=== PATIENT | female | born 1990 | race Caucasian/White ===

== ENCOUNTER 2023-01-16 16:30 | Outpatient (REF) | payer BC, SELFPAY | END 2023-01-16 16:31 | disposition home or self-care (01) | LOC: LAB 16:30 | PROVIDERS: Visit Provider Obstetrics & Gynecology | DX: L91.8 Other hypertrophic disorders of the skin (principal) | CPT/HCPCS: 88304 ==

== ENCOUNTER 2023-01-23 10:02 | Outpatient (OUT) | payer BC, SELFPAY ==
--- NOTE | 2023-01-23 10:04 | US_ITS ---
[address] [address] Patient Name: NATAN NOLEN MRN: [id number] date: 1990 Sex: F Assigned Patient Location: US Current Patient Location: Accession/Order Number: [id number] Exam Date: 01/23/2023 10:04 Report Date: 01/23/2023 21:23 At the request of: ESME CASTRO Procedure: US OB anatomy EXAMINATION: US OB anatomy HISTORY: ANATOMY COMPARISON: No relevant comparison available. TECHNIQUE: Transabdominal sonographic examination was performed for obstetrical and evaluation. FINDINGS: Number: 1 Heart Rate: 151.0 bpm H.B. /min Amniotic Fluid Volume: Subjectively normal position: Variable Placental Location: Posterior, grade 0. Placental edge 4.5 cm from the internal os Cervix Length: 5 cm , closed Normally visualized anatomy: Cerebellum, choroid plexus, cisterna magna, lateral cerebral ventricles, orbits, midline falx, hard palate, stomach, kidneys, bladder, umbilical cord insertion into the abdomen, cervical spine, thoracic spine, lumbar spine, sacral spine, right upper extremity, left upper extremity, right lower extremity, left lower extremity Suboptimally visualized anatomy: Four-chamber heart Nonvisualized: RVOT, LVOT, three-vessel cord BIOMETRY: BPD: 5.1 cm 21 weeks 3 days , 80% HC: 19.2 cm 21 weeks 3 days, 78% AC: 16.7 cm 21 weeks 5 days, 78% FL: 3.7 cm 21 weeks 4 days, 77% EFW:437.8 grams; 15 ounces, 93% FL/AC: 22.0 FL/BPD: 72.2 HC/AC: 1.2 GESTATIONAL AGE: Age by EDC: 20 weeks 4 days FARIDA by EDC: 06/08/2023 Age by current US: 21 weeks 4 days FARIDA by current US: 06/01/2023 IMPRESSION: Suboptimal visualization four-chamber heart Nonvisualization RVOT, LVOT, three-vessel cord *Reference: [employer] Practice Guideline for the performance of Obstetric Ultrasound Examinations, April 30, 2007. Electronically authenticated by: SUSAN YEAGER Date: 01/23/2023 21:23
--- NOTE | 2023-01-23 10:04 | US_ITS ---
[address] [address] Patient Name: NATAN NOLEN MRN: [id number] date: 1990 Sex: F Assigned Patient Location: US Current Patient Location: Accession/Order Number: [id number] Exam Date: 01/23/2023 10:04 Report Date: 01/23/2023 21:23 At the request of: ESME CASTRO Procedure: US OB transvaginal EXAMINATION: US OB anatomy HISTORY: ANATOMY COMPARISON: No relevant comparison available. TECHNIQUE: Transabdominal sonographic examination was performed for obstetrical and evaluation. FINDINGS: Number: 1 Heart Rate: 151.0 bpm H.B. /min Amniotic Fluid Volume: Subjectively normal position: Variable Placental Location: Posterior, grade 0. Placental edge 4.5 cm from the internal os Cervix Length: 5 cm , closed Normally visualized anatomy: Cerebellum, choroid plexus, cisterna magna, lateral cerebral ventricles, orbits, midline falx, hard palate, stomach, kidneys, bladder, umbilical cord insertion into the abdomen, cervical spine, thoracic spine, lumbar spine, sacral spine, right upper extremity, left upper extremity, right lower extremity, left lower extremity Suboptimally visualized anatomy: Four-chamber heart Nonvisualized: RVOT, LVOT, three-vessel cord BIOMETRY: BPD: 5.1 cm 21 weeks 3 days , 80% HC: 19.2 cm 21 weeks 3 days, 78% AC: 16.7 cm 21 weeks 5 days, 78% FL: 3.7 cm 21 weeks 4 days, 77% EFW:437.8 grams; 15 ounces, 93% FL/AC: 22.0 FL/BPD: 72.2 HC/AC: 1.2 GESTATIONAL AGE: Age by EDC: 20 weeks 4 days FARIDA by EDC: 06/08/2023 Age by current US: 21 weeks 4 days FARIDA by current US: 06/01/2023 IMPRESSION: Suboptimal visualization four-chamber heart Nonvisualization RVOT, LVOT, three-vessel cord *Reference: [employer] Practice Guideline for the performance of Obstetric Ultrasound Examinations, April 30, 2007. Electronically authenticated by: SUSAN YEAGER Date: 01/23/2023 21:23
[2023-01-25 20:24] LABS: AFP Value 69.5 ng/mL (.); Gest. Age on Collection Date 20.6 weeks (.); Gestat. Age Based On Ultrasound (.); Insulin Dep Diabetes No (.); Maternal Age At EDD 35.1 yr (.); OSBR Risk 1 IN 2155 (.); Results Report (.)
== END 2023-01-23 10:03 | disposition home or self-care (01) ==
LOC: US 10:03
PROVIDERS: Visit Provider Obstetrics & Gynecology
DX: Z36.89 Encounter for other specified antenatal screening (principal)
CPT/HCPCS: 36415; 76805; 76817; 82105

== ENCOUNTER 2023-02-20 10:06 | Outpatient (OUT) | payer BC, SELFPAY ==
--- NOTE | 2023-02-20 10:09 | US_ITS ---
[address] [address] Patient Name: NATAN NOLEN MRN: [id number] date: 1990 Sex: F Assigned Patient Location: US Current Patient Location: US Accession/Order Number: [id number] Exam Date: 02/20/2023 10:09 Report Date: 02/20/2023 16:17 At the request of: ESME CASTRO Procedure: US OB incomplete anatomy EXAMINATION: US OB incomplete anatomy HISTORY: INCOMPLETE ANATOMY COMPARISON: Ultrasound OB anatomy 01/23/2023 FINDINGS: Presentation: Cephalic Heart rate: 137 bpm Anatomy: Four-chamber heart, RVOT, LVOT, three-vessel cord; no appreciable abnormality. US/US OB incomplete anatomy IMPRESSION: 1. Single live intrauterine 24 weeks 4 days. 2. Adequate visualization of the above listed anatomy. No appreciable abnormality. Electronically authenticated by: BRUNILDA NIEVES Date: 02/20/2023 16:17
== END 2023-02-20 10:07 | disposition home or self-care (01) ==
LOC: US 10:06
PROVIDERS: Visit Provider Obstetrics & Gynecology
DX: Z36.2 Encounter for other antenatal screening follow-up (principal)
CPT/HCPCS: 76815

== ENCOUNTER 2023-03-09 10:50 | Outpatient (OUT) | payer BC, SELFPAY ==
[2023-03-09 12:20] LABS: Glucose 1 Hour 135 mg/dL
== END 2023-03-09 10:51 | disposition home or self-care (01) ==
LOC: LAB 10:50
PROVIDERS: Visit Provider Obstetrics & Gynecology
DX: Z34.90 Encounter for supervision of normal pregnancy, unspecified, unspecified trimester (principal)
CPT/HCPCS: 36415; 82950

== ENCOUNTER 2023-04-13 11:02 | Outpatient (OUT) | payer BC, SELFPAY ==
--- NOTE | 2023-04-13 11:04 | US_ITS ---
The [address] [address] Patient Name: NATAN NOLEN MRN: [id number] date: 1990 Sex: F Assigned Patient Location: Current Patient Location: Accession/Order Number: [id number] Exam Date: 04/13/2023 11:05 Report Date: 04/13/2023 16:03 At the request of: ESME CASTRO Procedure: US OB growth EXAMINATION: US OB growth HISTORY: SIZE INCONSISTENT WITH DATES COMPARISON: No relevant comparison available. FINDINGS: Heart Rate: 163.0 bpm Number: 1.0 Position: CEPHALIC Amniotic Fluid Volume: 12.2 cm Maximum Vertical Pocket: 4.2 cm BIOMETRY: BPD: 8.2 cm cm; 32 weeks 5 days; 64% HC: 29.9 cmcm; 33 weeks 1 days; 43% AC: 30.3 cm cm; 34 weeks 2 days; 96% FL: 6.7 cm cm; 34 weeks 4 days; 93% EFW: 2337.6 grams; 94% FL/AC: 22.2 FL/BPD: 82.3 HC/AC: 1.0 GESTATIONAL AGE: Age by EDC: 32 weeks 0 days FARIDA by EDC: 06/08/2023 Age by US: 33 weeks 5 days FARIDA by US: 05/27/2023 US/US OB growth IMPRESSION: 1. Single live intrauterine with growth detailed above. Electronically authenticated by: BRUNILDA NIEVES Date: 04/13/2023 16:03
== END 2023-04-13 11:03 | disposition home or self-care (01) ==
LOC: US 11:02
PROVIDERS: Visit Provider Obstetrics & Gynecology
DX: O26.843 Uterine size-date discrepancy, third trimester (principal); Z3A.32 32 weeks gestation of pregnancy
CPT/HCPCS: 76816

== ENCOUNTER 2023-05-01 14:29 | Outpatient (OUT) | payer BC, SELFPAY ==
--- NOTE | 2023-05-01 14:31 | US_ITS ---
[address] [address] Patient Name: NATAN NOLEN MRN: [id number] date: 1990 Sex: F Assigned Patient Location: US Current Patient Location: US Accession/Order Number: [id number] Exam Date: 05/01/2023 14:32 Report Date: 05/01/2023 17:33 At the request of: ESME CASTRO Procedure: US OB growth EXAMINATION: US OB growth HISTORY: SIZE INCONSISTENT WITH DATES COMPARISON: No relevant comparison available. FINDINGS: Heart Rate: 145.0 bpm Amniotic Fluid Volume: 13.4 cm Number: 1.0 Position: CEPHALIC Maximum Vertical Pocket: 3.9 cm cm 2.6 cm cm 2.7 cm cm 4.1 cm cm BIOMETRY: BPD: 9.1 cm cm; 36 weeks 6 days; 96% HC: 32.0 cmcm; 36 weeks 1 days, 54% AC: 33.4 cm cm; 37 weeks 2 days greater than 97% FL: 7.4 cm cm; 37 weeks 5 days; greater than 97.0 % % EFW: 3151.3 grams, 6 lbs. 15 oz., greater than 97% FL/AC: 22.1 FL/BPD: 81.1 HC/AC: 1.0 GESTATIONAL AGE: Age by EDC: 34 weeks 4 days FARIDA by EDC: 06/08/2023 Age by US: 37 weeks 0 days FARIDA by US: 05/22/2023 US/US OB growth IMPRESSION: Large for gestational age Electronically authenticated by: SUSAN YEAGER Date: 05/01/2023 17:33
== END 2023-05-01 14:30 | disposition home or self-care (01) ==
LOC: US 14:29
PROVIDERS: Visit Provider Obstetrics & Gynecology
DX: O26.843 Uterine size-date discrepancy, third trimester (principal); Z3A.37 37 weeks gestation of pregnancy
CPT/HCPCS: 76816

== ENCOUNTER 2023-05-09 18:09 | Outpatient (OUT) | payer BC, SELFPAY ==
[2023-05-09 18:26] VITALS: BP 109/53; PULSE 83
== END 2023-05-09 18:42 | disposition home or self-care (01) ==
LOC: FBCO 18:11 → FBC 18:15
PROVIDERS: Visit Provider Obstetrics & Gynecology
DX: O26.843 Uterine size-date discrepancy, third trimester (principal); Z3A.00 Weeks of gestation of pregnancy not specified
CPT/HCPCS: 59025

== ENCOUNTER 2023-05-12 11:30 | Outpatient (OUT) | payer BC, SELFPAY ==
--- NOTE | 2023-05-12 11:41 | US_ITS ---
[address] [address] Patient Name: NATAN NOLEN MRN: [id number] date: 1990 Sex: F Assigned Patient Location: US Current Patient Location: Accession/Order Number: [id number] Exam Date: 05/12/2023 11:41 Report Date: 05/12/2023 15:10 At the request of: ESME CASTRO Procedure: US OB BPP w non-stress EXAMINATION: US OB BPP w non-stress HISTORY: SIZE INCONSISTENT WITH DATES COMPARISON: Ultrasound OB growth 05/01/2023 TECHNIQUE: Ultrasound biophysical profile was performed in the radiology department. BREATHING MOVEMENTS: 2 GROSS BODY MOVEMENTS: 2 TONE: 2 QUALITATIVE AMNIOTIC FLUID VOLUME: 2 PRESENTATION: CEPHALIC HEART RATE: 156.1 bpm bpm. AMNIOTIC FLUID VOLUME: 12.9 cm GESTATIONAL AGE: 36 weeks 1 days CONCLUSION: Total biophysical profile score 8. Electronically authenticated by: BRUNILDA NIEVES Date: 05/12/2023 15:10
[2023-05-12 11:56] VITALS: BP 123/72; PULSE 90
== END 2023-05-12 12:25 | disposition home or self-care (01) ==
LOC: US 11:40 → MS 11:42 → US 11:44 → FBC 11:45
PROVIDERS: Visit Provider Obstetrics & Gynecology
DX: O26.843 Uterine size-date discrepancy, third trimester (principal); Z3A.36 36 weeks gestation of pregnancy
CPT/HCPCS: 76818

== ENCOUNTER 2023-05-16 08:00 | Outpatient (OUT) | payer BC, SELFPAY ==
[2023-05-16 17:54] VITALS: BP 120/74; PULSE 76
== END 2023-05-16 18:18 | disposition home or self-care (01) ==
LOC: FBCO 08:01 → FBC 17:50
PROVIDERS: Visit Provider Obstetrics & Gynecology
DX: O26.893 Other specified pregnancy related conditions, third trimester (principal)
CPT/HCPCS: 59025

== ENCOUNTER 2023-05-17 21:48 | Outpatient (REF) | payer BC, SELFPAY | END 2023-05-17 21:49 | disposition home or self-care (01) | LOC: LAB 21:48 | PROVIDERS: Visit Provider Physician Assistant | DX: Z34.93 Encounter for supervision of normal pregnancy, unspecified, third trimester (principal) | CPT/HCPCS: 87081 ==

== ENCOUNTER 2023-05-19 07:19 | Outpatient (OUT) | payer BC, SELFPAY ==
--- NOTE | 2023-05-19 11:29 | US_ITS ---
[address] [address] Patient Name: NATAN NOLEN MRN: [id number] date: 1990 Sex: F Assigned Patient Location: US Current Patient Location: US Accession/Order Number: [id number] Exam Date: 05/19/2023 11:30 Report Date: 05/19/2023 15:04 At the request of: ESME CASTRO Procedure: US OB BPP w non-stress EXAMINATION: US OB BPP w non-stress HISTORY: size inconsistent with dates COMPARISON: No relevant comparison available. TECHNIQUE: Ultrasound biophysical profile was performed in the radiology department. non-reactive stress testing was performed by nursing staff in the birthing center. FINDINGS: BREATHING MOVEMENTS: 2.0 GROSS BODY MOVEMENTS: 2.0 TONE: 2.0 QUALITATIVE AMNIOTIC FLUID VOLUME: 2.0 PRESENTATION: CEPHALIC HEART RATE: 150.0 bpm H.B./min AMNIOTIC FLUID VOLUME: 12.2 cm cm GESTATIONAL AGE: 37 weeks 1 days CONCLUSION: Total biophysical profile score: 8.0 Electronically authenticated by: SUSAN YEAGER Date: 05/19/2023 15:04
[2023-05-19 12:04] VITALS: BP 154/74; PULSE 86
[2023-05-19 12:39] VITALS: RESP 18; TEMP 36.9
== END 2023-05-19 12:41 | disposition home or self-care (01) ==
LOC: US 07:22 → FBC 11:31
PROVIDERS: Visit Provider Obstetrics & Gynecology
DX: O26.843 Uterine size-date discrepancy, third trimester (principal); Z3A.37 37 weeks gestation of pregnancy
CPT/HCPCS: 59025; 76818

== ENCOUNTER 2023-05-23 07:43 | Outpatient (OUT) | payer BC, SELFPAY ==
[2023-05-23 18:03] VITALS: BP 139/76; PULSE 87
== END 2023-05-23 18:55 | disposition home or self-care (01) ==
LOC: FBCO 17:53 → FBC 17:55
PROVIDERS: Visit Provider Obstetrics & Gynecology
DX: O26.843 Uterine size-date discrepancy, third trimester (principal)
CPT/HCPCS: 59025

== ENCOUNTER 2023-05-26 07:23 | Outpatient (OUT) | payer BC, SELFPAY ==
[2023-05-26 11:27] VITALS: BP 123/73; PULSE 91
--- NOTE | 2023-05-26 11:39 | US_ITS ---
[address] [address] Patient Name: NATAN NOLEN MRN: [id number] date: 1990 Sex: F Assigned Patient Location: US Current Patient Location: US Accession/Order Number: [id number] Exam Date: 05/26/2023 11:55 Report Date: 05/26/2023 15:41 At the request of: ESME CASTRO Procedure: US OB BPP w non-stress EXAMINATION: US OB BPP w non-stress HISTORY: SIZE INCONSISTENT WITH DATES O26.849 COMPARISON: Ultrasound OB biophysical 05/19/2023 TECHNIQUE: Ultrasound biophysical profile was performed in the radiology department. BREATHING MOVEMENTS: 2 GROSS BODY MOVEMENTS: 2 TONE: 2 QUALITATIVE AMNIOTIC FLUID VOLUME: 2 PRESENTATION: CEPHALIC HEART RATE: 151.7 bpm bpm. AMNIOTIC FLUID VOLUME: 14.7 cm GESTATIONAL AGE: 38 weeks 1 days CONCLUSION: Total biophysical profile score 8. Electronically authenticated by: BRUNILDA NIEVES Date: 05/26/2023 15:41
== END 2023-05-26 12:20 | disposition home or self-care (01) ==
LOC: US 07:23 → FBC 11:22
PROVIDERS: Visit Provider Obstetrics & Gynecology
DX: O26.843 Uterine size-date discrepancy, third trimester (principal); Z3A.38 38 weeks gestation of pregnancy
CPT/HCPCS: 76818

== ENCOUNTER 2023-05-29 09:22 | Outpatient (OUT) | payer BC, SELFPAY ==
--- NOTE | 2023-05-29 09:26 | US_ITS ---
The [address] [address] Patient Name: NATAN NOLEN MRN: [id number] date: 1990 Sex: F Assigned Patient Location: US Current Patient Location: LAB Accession/Order Number: [id number] Exam Date: 05/29/2023 09:34 Report Date: 05/29/2023 15:15 At the request of: ESME PRICE Procedure: US OB growth EXAMINATION: US OB growth HISTORY: LGA COMPARISON: Ultrasound OB growth 05/01/2023 FINDINGS: Heart Rate: 150.0 bpm Number: 1.0 Position: cephalic Amniotic Fluid Volume: 8.7 cm Maximum Vertical Pocket: 4.4 cm BIOMETRY: BPD: 9.5 cm cm; 38 weeks 5 days; 79 % HC: 35.1 cmcm; 40 weeks 6 days ; 84% AC: 37.4 cm cm; 41 weeks 2 days; > 97% FL: 7.5 cm cm; 38 weeks 2 days; 49 % EFW: 4052.6 grams; 95% FL/AC: 20.0 FL/BPD: 79.0 HC/AC: 0.9 GESTATIONAL AGE: Age by EDC: 38 weeks 4 days FARIDA by EDC: 06/08/2023 Age by US: 39 weeks 6 days FARIDA by US: 05/30/2023 US/US OB growth IMPRESSION: 1. Single live intrauterine with growth detailed above. 2. Oligohydramnios. 3. Estimated weight is 95th percentile. Abdominal circumference is greater than 97th percentile. Dr. Price was notified of these findings by the computer graphic designer at time of imaging. Electronically authenticated by: BRUNILDA NIEVES Date: 05/29/2023 15:15
== END 2023-05-29 09:23 | disposition home or self-care (01) ==
LOC: US 09:22
PROVIDERS: Visit Provider Obstetrics & Gynecology
DX: O26.843 Uterine size-date discrepancy, third trimester (principal); O41.03X0 Oligohydramnios, third trimester, not applicable or unspecified; Z3A.38 38 weeks gestation of pregnancy
CPT/HCPCS: 76816

== ENCOUNTER 2023-05-30 07:10 | Outpatient (OUT) | payer BC, SELFPAY ==
[2023-05-30 11:49] VITALS: BP 135/81; PULSE 93
== END 2023-05-30 12:10 | disposition home or self-care (01) ==
LOC: FBCO 07:10 → FBC 11:39
PROVIDERS: Visit Provider Obstetrics & Gynecology
DX: O26.843 Uterine size-date discrepancy, third trimester (principal)
CPT/HCPCS: 59025

== ENCOUNTER 2023-06-01 04:53 | Inpatient (IN) | payer BC, SELFPAY ==
[2023-06-01] VITALS (52 sets, daily range): BP systolic 109–157; BP diastolic 58–95; PULSE 57–117; RESP 16–18; TEMP 35.4–36.6
[2023-06-01] MEDS: 0.9 % SODIUM CHLORIDE 1,000 ML 125 ML IV (05:55)
[2023-06-01 06:15] LABS: Hematocrit 33.4 % (36.0-48.0); Hemoglobin 11.5 g/dL (12.0-16.0); Mean Corpuscular HGB Conc 34.4 g/dL (29.9-35.2); Mean Platelet Volume 11.5 fL (9.5-13.5); Platelet Count 264 10^3/uL (150-450); Red Blood Count 3.71 10^6/uL (4.20-5.40); Red Cell Distribution Width 12.8 % (11.0-15.0); White Blood Count 9.8 10^3/uL (4.0-11.0)
[2023-06-01 06:38] LABS: Amphetamine Screen Urine NEGATIVE (NEGATIVE); Barbiturates Screen Urine NEGATIVE (NEGATIVE); Benzodiazepines Screen Urine NEGATIVE (NEGATIVE); Buprenorphine Screen Urine NEGATIVE (NEGATIVE); Cannabinoid Screen Urine NEGATIVE (NEGATIVE); Cocaine Screen Urine NEGATIVE (NEGATIVE); Methadone Screen Urine NEGATIVE (NEGATIVE); Methamphetamines Screen Urine NEGATIVE (NEGATIVE); Opiate Screen Urine NEGATIVE (NEGATIVE); Oxycodone Screen Urine NEGATIVE (NEGATIVE); Phencyclidine Screen Urine NEGATIVE (NEGATIVE); Tricyclic Antidepressant Urine NEGATIVE (NEGATIVE)
[2023-06-01] MEDS: OXYTOCIN/0.9 % SODIUM CHLORIDE 10 UNITS/500 ML PLAST..BAG 6 UNIT IV (07:00)
[2023-06-01] MEDS: 0.9 % SODIUM CHLORIDE 1,000 ML 1000 ML IV (10:25)
[2023-06-01] MEDS: ROPIVACAINE HCL/PF 400 MG/200 ML PREMIX 6 MG EPIDURAL (10:33)
[2023-06-01] MEDS: LIDOCAINE HCL 2% PF 100 MG/5 ML VIAL INJ ×2 (10:34→14:18)
[2023-06-01] MEDS: FENTANYL CITRATE/PF 100 MCG/2 ML VIAL EPIDURAL ×2 (10:34→14:18)
[2023-06-01] MEDS: ONDANSETRON PF 4 MG/2 ML VIAL IV (15:46)
--- NOTE | 2023-06-01 16:53 | PM.OBPRCVD ---
Procedure Intrapartal events: None Induction method: per pitocin protocol Delivery augmentation: rupture of membranes and pitocin Delivery monitor: external FHT and external uterine Route of delivery: Episiotomy Description: none Laceration description: perineal - 2nd degree Delivery repair: Vicryl Estimated blood loss (mL): 300 Anesthesia type: Epidural Disposition: floor Infant Gender: male presentation: vertex Placental delivery description: Spontaneous cord description: 3 Vessels and Nuchal Cord
[2023-06-01] MEDS: GLYCERIN/WITCH HAZEL PADS 1 PAD TOPICAL (17:26)
[2023-06-01] MEDS: BENZOCAINE/MENTHOL 85 GRAM SPRAY BOTTLE 1 APPLIC TOPICAL (17:26)
[2023-06-01] MEDS: IBUPROFEN 600 MG TABLET PO (18:42)
--- NOTE | 2023-06-01 18:52 | PC.NURSE ---
Recovery notes: 1635- Fundus firm, U/E, bleeding scant. 1650- Fundus firm U/E. Bleeding scant. 1705- Fundus firm U/E. Bleeding small. 1720- Fundus firm U/E. Bleeding small 1735- Fundus firm U/E. Bleeding small. 1750- Fundus firm 1/U. No trickle or clots noted. Bleeding small. 1805- Fundus firm 1/U. Bleeding small. 1820- Fundus firm 1/U. Bleeding small. 1835- Pericare performed at this time. Bleeding noted as small throughout recovery. No clots noted. No trickling of blood. Fundus firm and 1/U.
--- NOTE | 2023-06-01 19:11 | W.PC.ACHO ---
Registration Status: ADM IN Primary Language: Danish Preferred Language: Danish Active Medications Generic Name Dose Route Start Last Admin Trade Name Davion PRN Reason Stop Dose Admin Acetaminophen 650 mg 06/01/23 16:52 Acetaminophen 325 Mg Tablet PO Q6H PRN Mild Pain Al Hydroxide/Mg Hydroxide 2,400 mg 06/01/23 16:52 Magnesium Hydroxide 2,400 Mg/10 Ml Oral.Susp PO Q6H PRN Dyspepsia Benzocaine/Menthol 1 applic 06/01/23 16:52 06/01/23 17:26 Benzocaine/Menthol 85 Gram [place] Bottle TOPICAL 1 applic Q2H PRN Administration Pain Carboprost Tromethamine 250 mcg 06/01/23 05:32 Carboprost Tromethamine 250 Mcg/Ml 1 Ml Vial IM 06/02/23 17:00 Q15M PRN Bleeding Diphtheria/Pertussis/Tetanus Vacc 0.5 ml 06/03/23 09:00 Adacel Diph,Pertuss(Acell),Tet Vac/Pf 0.5 Ml Adult Syringe IM 06/03/23 09:01 .ONCE ONE Docusate Sodium 100 mg 06/02/23 09:00 Docusate Sodium 100 Mg Capsule PO BID RICKY Sodium Chloride 1,000 mls @ 125 mls/hr 06/01/23 05:45 06/01/23 05:55 Sodium Chloride 0.9% 1,000 Ml IV 125 mls/hr .Q8H RICKY Administration Oxytocin/Sodium Chloride 20 units in 1,000 mls @ 125 mls/hr 06/01/23 05:45 Pitocin 20 Unit/1,000 Ml-Ns IV 06/02/23 00:59 ONCE PRN delivery Ibuprofen 600 mg 06/01/23 16:52 06/01/23 18:42 Ibuprofen 600 Mg Tablet PO 600 mg Q6H PRN Administration Moderate Pain Measles/Mumps/Rubella Vaccine Live 0.5 ml 06/03/23 09:00 Measles,Mumps,Rubella Vacc/Pf 0.5 Ml Vial SQ 06/03/23 09:01 .ONCE ONE Methylergonovine Maleate 0.2 mg 06/01/23 05:32 Methylergonovine Maleate 0.2 Mg/Ml Ampule IM 06/02/23 17:00 ONCE PRN Uterine Contractility/Contract Methylergonovine Maleate 0.2 mg 06/01/23 05:32 Methylergonovine Maleate 0.2 Mg Tablet PO 06/02/23 17:00 Q4H PRN Uterine Contractility/Contract Misoprostol 600 mcg 06/01/23 05:32 Misoprostol 100 Mcg Tablet PO 06/02/23 17:00 ONCE PRN Uterine Bleeding Misoprostol 800 mcg 06/01/23 05:32 Misoprostol 100 Mcg Tablet SL 06/02/23 17:00 ONCE PRN Uterine Bleeding Misoprostol 1,000 mcg 06/01/23 05:32 Misoprostol 100 Mcg Tablet AK 06/02/23 17:00 ONCE PRN Uterine Bleeding Ondansetron HCl 4 mg 06/01/23 05:32 06/01/23 15:46 Ondansetron Pf 4 Mg/2 Ml Vial IV 4 mg Q6H PRN Administration Nausea And Vomiting Ondansetron HCl 4 mg 06/01/23 05:32 Ondansetron 4 Mg Rapdis Tablet SL Q6H PRN Nausea And Vomiting Oxytocin 10 unit 06/01/23 05:32 Oxytocin 10 Unit/Ml Vial IM 06/01/23 23:59 ONCE PRN Bleeding Senna 17.2 mg 06/01/23 20:00 Sennosides 8.6 Mg Tablet PO QHS PRN Constipation Simethicone 80 mg 06/01/23 17:04 Simethicone 80 Mg Tab.Chew PO QID PRN Abdominal Distention Temazepam 15 mg 06/01/23 16:52 Temazepam 15 Mg Capsule PO QHS PRN Sleep Witch Shelia/Glycerin 1 pad 06/01/23 16:52 06/01/23 17:26 Glycerin/Witch Shelia Pads TOPICAL 1 pad Q2H PRN Administration Pain Diet Category Date Time Status Regular Consistency Diet Diet 06/01/23 16:52 Active Consults Category Date Time Status Consult to Anesthesiology Routine Cons 06/01/23 Ordered IV Insertion/Site Date of IV Line Insertion [20g 06/01/23 left Wrist] IV Insertion Time [20g left 05:40 Wrist] Neurology Patient orientation (short person,place,time,situation list) Respiratory Oxygen Delivery Method Room Air Oxygen Delivery Method Room Air Cardiology Heart Sounds Strong,Regular Bowels Bowel Pattern No Bowel Movement
[2023-06-01] MEDS: ACETAMINOPHEN 325 MG TABLET 650 MG PO (21:05)
[2023-06-02] VITALS (7 sets, daily range): BP systolic 134–147; BP diastolic 68–80; PULSE 72–95; RESP 16–18; TEMP 36.6–36.7
[2023-06-02] MEDS: IBUPROFEN 600 MG TABLET PO ×2 (03:43→11:32)
[2023-06-02 06:38] LABS: Basophils Percent Auto 0.3 % (0.2-2.0); Eosinophils Absolute Auto 0.1 10^3/uL (0.0-0.7); Eosinophils Percent Auto 0.5 % (0.9-7.0); Hematocrit 30.1 % (36.0-48.0); Hemoglobin 10.2 g/dL (12.0-16.0); Immature Granulocytes Abs Auto 0.07 10^3/uL (0.00-0.03); Immature Granulocytes Pct Auto 0.5 % (0.0-0.5); Lymphocytes Absolute Auto 1.8 10^3/uL (1.2-3.8); Lymphocytes Percent Auto 13.8 % (20.5-60.0); Mean Corpuscular HGB Conc 33.9 g/dL (29.9-35.2); Mean Corpuscular Hemoglobin 31.3 pg (26.7-34.0); Mean Corpuscular Volume 92.3 fL (81.0-99.0); Mean Platelet Volume 10.5 fL (9.5-13.5); Monocytes Percent Auto 7.8 % (1.7-12.0); Neutrophils Absolute Auto 9.9 10^3/uL (1.4-6.5); Neutrophils Percent Auto 77.1 % (43.0-75.0); Platelet Count 212 10^3/uL (150-450); Red Blood Count 3.26 10^6/uL (4.20-5.40); White Blood Count 12.9 10^3/uL (4.0-11.0)
--- NOTE | 2023-06-02 07:41 | P.OBPN_ITS ---
OB - PN: Subj Subjective Patient comments: no complaints and pain well controlled [place] status: doing well Exam Constitutional Vital Signs, click to edit/add: Last Vital Signs Temp 98.0 F 06/02/23 05:33 Pulse 72 06/02/23 05:32 Resp 16 06/02/23 05:33 BP 134/80 06/02/23 05:32 O2 Del Method Room Air 06/01/23 17:05 Documenting provider has reviewed patient's vital signs: yes Common normals: no apparent distress Respiratory Common normals: normal respiratory effort and clear to auscultation bilaterally Cardio Common normals: regular rate and regular rhythm GI Common normals: Normal to inspection, nondistended, normoactive bowel sounds present Extremity Common normals: no calf tenderness Results Labs Labs: Short CBC 06/02/23 Range/Units 06:30 WBC 12.9 H (4.0-11.0) 10^3/uL Hgb 10.2 L (12.0-16.0) g/dL Hct 30.1 L (36.0-48.0) % Plt Count 212 (150-450) 10^3/uL OB - PN: A/P Plan - Vaginal Delivery day: 1 Plan: routine care Time Spent with Patient Time: Total time spent is greater than 50% in coordination of care (as documented) at patient's floor/unit and/or counseling patient: Total time spent with greater than 50% in coordination of care (as documented) at patient's floor/unit and/or counseling patient: less than 15 minutes
--- NOTE | 2023-06-02 07:45 | W.PC.ACHO ---
Registration Status: ADM IN Primary Language: Guyanese Preferred Language: Guyanese Active Medications Generic Name Dose Route Start Last Admin Trade Name Freq PRN Reason Stop Dose Admin Acetaminophen 650 mg 06/01/23 16:52 06/01/23 21:05 Acetaminophen 325 Mg Tablet PO 650 mg Q6H PRN Administration Mild Pain Al Hydroxide/Mg Hydroxide 2,400 mg 06/01/23 16:52 Magnesium Hydroxide 2,400 Mg/10 Ml Oral.Susp PO Q6H PRN Dyspepsia Benzocaine/Menthol 1 applic 06/01/23 16:52 06/01/23 17:26 Benzocaine/Menthol 85 Gram [place] Bottle TOPICAL 1 applic Q2H PRN Administration Pain Carboprost Tromethamine 250 mcg 06/01/23 05:32 Carboprost Tromethamine 250 Mcg/Ml 1 Ml Vial IM 06/02/23 17:00 Q15M PRN Bleeding Diphtheria/Pertussis/Tetanus Vacc 0.5 ml 06/03/23 09:00 Adacel Diph,Pertuss(Acell),Tet Vac/Pf 0.5 Ml Adult Syringe IM 06/03/23 09:01 .ONCE ONE Docusate Sodium 100 mg 06/02/23 09:00 Docusate Sodium 100 Mg Capsule PO BID RICKY Sodium Chloride 1,000 mls @ 125 mls/hr 06/01/23 05:45 06/01/23 05:55 Sodium Chloride 0.9% 1,000 Ml IV 125 mls/hr .Q8H RICKY Administration Ibuprofen 600 mg 06/01/23 16:52 06/02/23 03:43 Ibuprofen 600 Mg Tablet PO 600 mg Q6H PRN Administration Moderate Pain Measles/Mumps/Rubella Vaccine Live 0.5 ml 06/03/23 09:00 Measles,Mumps,Rubella Vacc/Pf 0.5 Ml Vial SQ 06/03/23 09:01 .ONCE ONE Methylergonovine Maleate 0.2 mg 06/01/23 05:32 Methylergonovine Maleate 0.2 Mg/Ml Ampule IM 06/02/23 17:00 ONCE PRN Uterine Contractility/Contract Methylergonovine Maleate 0.2 mg 06/01/23 05:32 Methylergonovine Maleate 0.2 Mg Tablet PO 06/02/23 17:00 Q4H PRN Uterine Contractility/Contract Misoprostol 600 mcg 06/01/23 05:32 Misoprostol 100 Mcg Tablet PO 06/02/23 17:00 ONCE PRN Uterine Bleeding Misoprostol 800 mcg 06/01/23 05:32 Misoprostol 100 Mcg Tablet SL 06/02/23 17:00 ONCE PRN Uterine Bleeding Misoprostol 1,000 mcg 06/01/23 05:32 Misoprostol 100 Mcg Tablet VT 06/02/23 17:00 ONCE PRN Uterine Bleeding Ondansetron HCl 4 mg 06/01/23 05:32 06/01/23 15:46 Ondansetron Pf 4 Mg/2 Ml Vial IV 4 mg Q6H PRN Administration Nausea And Vomiting Ondansetron HCl 4 mg 06/01/23 05:32 Ondansetron 4 Mg Rapdis Tablet SL Q6H PRN Nausea And Vomiting Senna 17.2 mg 06/01/23 20:00 Sennosides 8.6 Mg Tablet PO QHS PRN Constipation Simethicone 80 mg 06/01/23 17:04 Simethicone 80 Mg Tab.Chew PO QID PRN Abdominal Distention Temazepam 15 mg 06/01/23 16:52 Temazepam 15 Mg Capsule PO QHS PRN Sleep Witch Shelia/Glycerin 1 pad 06/01/23 16:52 06/01/23 17:26 Glycerin/Witch [place] Pads TOPICAL 1 pad Q2H PRN Administration Pain Diet Category Date Time Status Regular Consistency Diet Diet 06/01/23 16:52 Active Respiratory Oxygen Delivery Method Room Air Oxygen Delivery Method Room Air Cardiology Heart Sounds Strong,Regular Bowels Bowel Pattern No Bowel Movement
[2023-06-02] MEDS: DOCUSATE SODIUM 100 MG CAPSULE PO ×2 (10:43→19:16)
--- NOTE | 2023-06-02 19:06 | W.PC.ACHO ---
Registration Status: ADM IN Primary Language: Colombian Preferred Language: Colombian Active Medications Generic Name Dose Route Start Last Admin Trade Name Freq PRN Reason Stop Dose Admin Acetaminophen 650 mg 06/01/23 16:52 06/01/23 21:05 Acetaminophen 325 Mg Tablet PO 650 mg Q6H PRN Administration Mild Pain Al Hydroxide/Mg Hydroxide 2,400 mg 06/01/23 16:52 Magnesium Hydroxide 2,400 Mg/10 Ml Oral.Susp PO Q6H PRN Dyspepsia Benzocaine/Menthol 1 applic 06/01/23 16:52 06/01/23 17:26 Benzocaine/Menthol 85 Gram [place] Bottle TOPICAL 1 applic Q2H PRN Administration Pain Diphtheria/Pertussis/Tetanus Vacc 0.5 ml 06/03/23 09:00 Adacel Diph,Pertuss(Acell),Tet Vac/Pf 0.5 Ml Adult Syringe IM 06/03/23 09:01 .ONCE ONE Docusate Sodium 100 mg 06/02/23 09:00 06/02/23 10:43 Docusate Sodium 100 Mg Capsule PO 100 mg BID RICKY Administration Sodium Chloride 1,000 mls @ 125 mls/hr 06/01/23 05:45 06/01/23 05:55 Sodium Chloride 0.9% 1,000 Ml IV 125 mls/hr .Q8H RICKY Administration Ibuprofen 600 mg 06/01/23 16:52 06/02/23 11:32 Ibuprofen 600 Mg Tablet PO 600 mg Q6H PRN Administration Moderate Pain Measles/Mumps/Rubella Vaccine Live 0.5 ml 06/03/23 09:00 Measles,Mumps,Rubella Vacc/Pf 0.5 Ml Vial SQ 06/03/23 09:01 .ONCE ONE Ondansetron HCl 4 mg 06/01/23 05:32 06/01/23 15:46 Ondansetron Pf 4 Mg/2 Ml Vial IV 4 mg Q6H PRN Administration Nausea And Vomiting Ondansetron HCl 4 mg 06/01/23 05:32 Ondansetron 4 Mg Rapdis Tablet SL Q6H PRN Nausea And Vomiting Senna 17.2 mg 06/01/23 20:00 Sennosides 8.6 Mg Tablet PO QHS PRN Constipation Simethicone 80 mg 06/01/23 17:04 Simethicone 80 Mg Tab.Chew PO QID PRN Abdominal Distention Temazepam 15 mg 06/01/23 16:52 Temazepam 15 Mg Capsule PO QHS PRN Sleep Witch Shelia/Glycerin 1 pad 06/01/23 16:52 06/01/23 17:26 Glycerin/Witch Shelia Pads TOPICAL 1 pad Q2H PRN Administration Pain Respiratory Oxygen Delivery Method Room Air Oxygen Delivery Method Room Air Oxygen Delivery Method Room Air Oxygen Delivery Method Room Air Cardiology Heart Sounds Strong,Regular Heart Sounds Strong,Regular Bowels Bowel Pattern No Bowel Movement Bowel Pattern No Bowel Movement Renal Bladder Pattern Continent Bladder Pattern Continent
== END 2023-06-02 19:45 | disposition home or self-care (01) | DRG 807 ==
PROVIDERS: Admitting Provider Obstetrics & Gynecology; Visit Provider Obstetrics & Gynecology
DX: O69.81X0 Labor and delivery complicated by cord around neck, without compression, not applicable or unspecified (principal); Z37.0 Single live birth; O70.1 Second degree perineal laceration during delivery; Z3A.39 39 weeks gestation of pregnancy; Z83.3 Family history of diabetes mellitus; Z82.5 Family history of asthma and other chronic lower respiratory diseases; Z80.9 Family history of malignant neoplasm, unspecified
CPT/HCPCS: 36415; 51702; 59050; 59410; 80307; 85025; 85027; 86850; 86900; 86901; 96374; 96375; 96376

== ENCOUNTER 2023-06-06 10:37 | Outpatient (OUT) | payer BC, SELFPAY ==
--- NOTE | 2023-06-06 16:30 | PC.NURSE ---
Family arrives for follow up visit. Mom states is tired and feels overwhelmed at times. 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 Feedings are difficult as milk trying to come in but only able to pump 30ml combined. Pumps 2-3 X per day and formula feeds baby other feeds. Really wants to breast feed but was not successful with first child. Did not make much milk Started supplementing in hospital and continued at home as had a concern for breast milk supply. Infant weight obtained and is down 7.9% on day 5, has 6 wet and 3 green stools today including one during assessment. VSS, color pink warm and dry with slight jaundice undertone. Transcutaneous bili 8.5, explained to parents reason for bili and voices understanding. Baby to breast, takes only nipple into mouth, denies discomfort, states it only pinches with a tug, that's how I know he is on deep enough. Reviewed deep latch with better milk transfer, no pain associated and better milk transfer. LC assists in deeper, asymmetrical latch and begins slow paced sucks with audible swallows. Mom voices concern that it no longer hurts/pinches with feed as previous delivery the LC said it is supposed to hurt This senior copywriter explains deep latch until both parents verbalize understanding. Mom aids in feeding plan with idea of feeding baby at breast 10/10, bottle feeding pumped milk or formula, whatever she has available at the feeding and then will pump for 10-15 min after feeds as is able with goal of 8 pumps per 24 hours. States will return 06/09/2023 to check progress and weight. Family leaves with better support and understanding of feeding and management.
[2023-06-06 16:31] VITALS: BP 131/87; PULSE 84; RESP 16; TEMP 36.5; O2SAT 97
== END 2023-06-06 15:45 | disposition home or self-care (01) ==
LOC: FBCO 10:38
PROVIDERS: Visit Provider Obstetrics & Gynecology
DX: Z39.2 Encounter for routine postpartum follow-up (principal)

== ENCOUNTER 2023-06-09 08:28 | Outpatient (OUT) | payer BC, SELFPAY ==
--- NOTE | 2023-06-09 11:42 | PC.NURSE ---
Lashay and Ba arrive for support. Mom staes much better today . REfers to not being so exhausted and baby feeding /latching much better . Finding routine of baby latching deeper and feeding 05/09 and then has supplement of 1-1.5 oz of pumped milk. REtains feed well.Baby is willing to nurse longer at the breast so mom encouraged to let baby nurse /15-20 as he desires. Mom encouraged to only offer supplemental bottle if baby continues to be fussy and want more feeding and mom unable to return baby to breast. Mom reports has placed baby to breast with each feeding and offered supplement for every feeding since last visit. Has only used formula supplement twice because she was unsure if he needed formula or not Discussed gut biome and health with breast milk only vs use of formula. Mom states so breast milk healthiest and should be used first use formula if no pumped milk available. States has been pumping double electric at least 6X per day. Not inclined to pump 8X at this point. Reassurance given and encouraged baby doing more work at the breast so can eventually just breast feed Verbalized understanding and then asks about use of Imatrex for migraine headache. Consulted Dr Reji Khalil Medications in mom's milk. Listed as L3, probably compatible status. Does benefit out weigh the risk and limited studies. Verbalized understanding, aware to watch for drowsiness, vomiting and poor feeding in infant when she uses Imatrex. Will call for appointment next week if needed. Aware of [facility] group and to call as needed.
== END 2023-06-09 11:15 | disposition home or self-care (01) ==
LOC: FBCO 08:30
PROVIDERS: Visit Provider Obstetrics & Gynecology
DX: Z39.1 Encounter for care and examination of lactating mother (principal)

== ENCOUNTER 2023-08-29 19:52 | Outpatient (REF) | payer BC, SELFPAY ==
--- OUTSIDE RECORDS SUMMARY | 2023-08-29 19:56 | XMS_ITS | CCD ---
Author Name Unknown Address [address] [place] [address] Organization [facility] Care Team Providers Care Supervisor Files Name Role Phone Mami Ahmadi Unavailable MATTHEW, ESME Admitting Unavailable MATTHEW, ESME Attending Unavailable REQUEST, NONE LISTED Primary Care Unavaila ble MATTHEW, ESME Consulting Unavailable MATTHEW, ESME Admitting Unavailable MATTHEW, ESME Attending Unavailable MATTHEW, ESME Consulting Unavailable MATTHEW, ESME Admitting Unavailable MATTHEW, ESME Attending Unavailable MATTHEW, ESME Consulting Unavailable MATTHEW, ESME Admitting Unavailable MATTHEW, ESME Attending Unavailable MATTHEW, ESME Consulting Unavailable MILAD, JERROD Admitting Unavailable MILAD, JERROD Attending Unavailable EZEQUIEL, DR BRUNILDA Fraser Consulting Unavailable MILAD, JERROD Consulting Unavailable MATTHEW, ESME Admitting Unavailable MATTHEW, ESME Attending Unavailable REQUEST, DR VERGARA LISTED Primary Care Unavaila david YEAGER, DR SUSAN Weems Consulting Unavailable MATTHEW, ESME Consulting Unavailable MATTHEW, ESME Admitting Unavailable MATTHEW, ESME Attending Unavailable MATTHEW, ESME Consulting Unavailable EZEQUIEL, DR BRUNILDA Fraser Consulting Unavailable JESSY ., DR HOLDEN Admitting Unavailable JESSY ., DR HOLDEN Attending Unavailable EZEQUIEL, DR BRUNILDA Fraser Consulting Unavailable JESSY ., DR HOLDEN Consulting Unavailable EMMA HUTTON Attending Unavailable Medications Current Medications Medication Drug Class(es) Dates Sig (Normalized) Sig (Original) [id number] 200 actuat albuterol 0.09 mg/actuat metered dose inhaler (1 source) beta2-Adrenergic Agonist Start: 1 take 2 puff(s) by inhalation every four hours as needed Albuterol Sulfate HFA 108 (90 Base) MCG/ACT 2 puffs as needed Inhalation every 4 hrs Jun, Active methylPREDNISolone 4 mg oral tablet (1 source) Corticosteroid Start: methylPREDNISolone 4 MG as directed Orally Once a day for 6 days Jun, Active SUMAtriptan (1 source) Serotonin-1b and Serotonin-1d Receptor Agonist SUMAtriptan Active Problems Active Problems Problem Classification Problem Date Documented Date Episodic/Chronic Immunizations and screening for infectious disease (2 sources) Contact with and (suspected) exposure to other viral communicable diseases; Translations: [Encounter for screening for human papillomavirus (HPV)] Onset: 07-15-2021 Resolved: 07-15-2021 Episodic Menstrual disorders (4 sources) Irregular menstruation, unspecified; Translations: [IRREGULAR MENSTRUATION UNSPECIFIED] Onset: 11-04-2022 Chronic Other endocrine disorders (4 sources) Polycystic ovarian syndrome; Translations: [POLYCYSTIC OVARIAN SYNDROME] Onset: 09-08-2022 Chronic Other and delivery including normal (2 sources) Encounter for supervision of other normal , first trimester; Translations: [Encounter for supervision of normal , unspecified, first trimester] Onset: 11-07-2022 Episodic Other screening for suspected conditions (not mental disorders or infectious disease) (4 sources) Encounter for screening for malignant neoplasm of cervix; Translations: [ENC SCREENING MALIG NEOPLASM CERV] Onset: 08-15-2022 Episodic Other upper respiratory infections (4 sources) Acute upper respiratory infection, unspecified; Translations: [ACUTE UP RESPIRATORY INFECTION UNS] Onset: 10-27-2022 Episodic Unclassified (1 source) CONTACT W/AND (SUSP) EXPOS COVID-19; Translations: [CONTACT W/AND (SUSP) EXPOS COVID-19] Onset: 11-02-2022 Past or Other Problems Problem Classification Problem Date Documented Da te Episodic/Chronic Chronic obstructive pulmonary disease and bronchiectasis (1 source) Bronchitis, not specified as acute or chronic Onset: 07-15-2021 Resolved: 07-15-2021 Episodic E Codes: Fall (1 source) Fall (on) (from) unspecified stairs and steps, initial encounter; Translations: [FALL ON FROM UNS STAIRS STEPS INIT] Onset: 05-17-2022 Episodic Other connective tissue disease (3 sources) Pain in left foot; Translations: [PAIN IN LEFT FOOT] Onset: 05-16-2022 Episodic Sprains and strains (4 sources) Unspecified sprain of left foot, initial encounter; Translations: [UNSPECIFIED SPRAIN LT FOOT INITIAL] Onset: 05-24-2022 Episodic Results Test Name Value Interpretation Reference Range Facility HEP B SURFACE ANTIGEN SCREEN on 11-05-2022 HBsAg Screen Negative Normal Negative [facility] Comment on above: Performed By: #### H CVPCRR #### [facility] [address] [place] [address] Dr. Daryn Rosario HEPATITIS C VIRUS AB W/ REFL EX QUANTon 11-05-2022 HCV AB Non-Reactive Normal Non Reactive [facility] Comment on above: Performed By: #### H CVPCRR #### [facility] [address] [place] [address] Dr. Daryn Rosario Interpretation: Comment Normal [facility] Comment on above: Result Comment: Not infected with HCV unless early or acute infection is suspected (which may be delayed in an immunocompromised individual), or other evidence exists to indicate HCV infection. Performed By: #### H CVPCRR #### [facility] [address] [place] [address] Dr. Daryn Rosario HIV 1 AND 2 WITH REFLEXon HIV Screen 4th Generation wRfx Non-Reactive Normal Non Reactive [facility] Comment on above: Result Comment: HIV Negative HIV-1/HIV-2 antibodies and HIV-1 p24 antigen were NOT detected. There is no laboratory evidence of HIV infection. Performed By: #### H IV12 #### [facility] [address] [place] [address] Dr. Daryn Rosario RPR QUANTon 11-05-2022 Rapid Plasma Reagin, Quant Non-Reactive Normal NonRea<1:1 [facility] Comment on above: Result Comment: Plea se Note: This test does not meet current guidelines for screening and diagnosis of syphilis. This test is intended for following treatment response in patients being treated for syphilis infection. To screen for syphilis infection, a reflex cascade that includes both RPR and a treponema-specific assay should be utilized, such as Treponema pallidum (Syphilis) Screening Thomas (416222) or Rapid Plasma Reagin (RPR) Test With Reflex to Quantitative RPR and Confirmatory Treponema pallidum Antibodies ([id number]). Performed By: #### R PRQ #### [facility] [address] [place] [address] Dr. Daryn Rosario RUBELLA AB IGGon 11-05-2022 Rubella Antibodies, IgG 12.70 index Normal Immu ne >0.99 [facility] Comment on above: Result Comment: Non- immune <0.90 Equivocal 0.90 - 0.99 Immune >0.99 Performed By: #### R UBIGG #### [facility] [address] [place] [address] Dr. Daryn Rosario BOX TEST SENT OUTon 11-05-19 23 SENT TO REF LAB 11/04/2022 Normal [facility] Comment on above: Performed By: #### H CVPCRR #### [facility] [address] [place] [address] Dr. Daryn Rosario CBC AUTO DIFFon 11-04-2022 BASO # 0.0 103/ul Normal 0.0-0.1 [facility] Comment on above: Performed By: #### H CVPCRR #### [facility] [address] [place] [address] Dr. Daryn Rosario Basophils/100 WBC (Bld) 0.4 % Normal 0.2-2.0 [facility] Comment on above: Performed By: #### H CVPCRR #### [facility] [address] [place] [address] Dr. Daryn Rosario EO # 0.1 103/ul Normal 0.0-0.7 [facility] Comment on above: Performed By: #### H CVPCRR #### [facility] [address] [place] [address] Dr. Daryn Rosario Eosinophils/100 WBC (Bld) 1.4 % Normal 0.9-7.0 [facility] Comment on above: Performed By: #### H CVPCRR #### [facility] [address] [place] [address] Dr. Daryn Rosario Erythrocyte distribution width (RBC) [Ratio] 12.4 % Normal 11.0-15.0 [facility] Comment on above: Performed By: #### H CVPCRR #### [facility] [address] [place] [address] Dr. Daryn Rosario Hematocrit (Bld) [Volume fraction] 38.5 % Normal 36.0-48.0 [facility] Comment on above: Performed By: #### H CVPCRR #### [facility] [address] [place] [address] Dr. Daryn Rosario Hemoglobin (Bld) [Mass/Vol] 13.3 g/dL Normal 12.0-16.0 [facility] Comment on above: Performed By: #### H CVPCRR #### [facility] [address] [place] [address] Dr. Daryn Rosario IG # 0.03 10e3/ul Normal 0.00-0.03 [facility] Comment on above: Performed By: #### H CVPCRR #### [facility] [address] [place] [address] Dr. Daryn Rosario IG % 0.4 % Normal 0.0-0.5 [facility] Comment on above: Performed By: #### H CVPCRR #### [facility] [address] [place] [address] Dr. Daryn Rosario LYMPH # 1.9 103/ul Normal 1.2-3.8 [facility] Comment on above: Performed By: #### H CVPCRR #### [facility] [address] [place] [address] Dr. Daryn Rosario Lymphocytes/100 WBC (Bld) 23.2 % Normal 20.5-60.0 [facility] Comment on above: Performed By: #### H CVPCRR #### [facility] [address] [place] [address] Dr. Daryn Rosario MANUAL DIFF REQ NO Normal [facility] Comment on above: Performed By: #### H CVPCRR #### [facility] [address] [place] [address] Dr. Daryn Rosario MCH (RBC) [Entitic mass] 30.5 pg Normal 26.7-34.0 [facility] Comment on above: Performed By: #### H CVPCRR #### [facility] [address] [place] [address] Dr. Daryn Rosario MCHC (RBC) [Mass/Vol] 34.5 g/dL Normal 29.9-35.2 [facility] Comment on above: Performed By: #### H CVPCRR #### [facility] [address] [place] [address] Dr. Dayrn Rosario MCV (RBC) [Entitic vol] 88.3 fL Normal 81.0-99.0 [facility] Comment on above: Performed By: #### H CVPCRR #### [facility] [address] [place] [address] Dr. Daryn Rosario MONO # 0.7 103/ul Normal 0.3-0.8 [facility] Comment on above: Performed By: #### H CVPCRR #### [facility] [address] [place] [address] Dr. Daryn Rosario Monocytes/100 WBC (Bld) 8.4 % Normal 1.7-12.0 [facility] Comment on above: Performed By: #### H CVPCRR #### [facility] [address] [place] [address] Dr. Daryn Rosario NEUT # 5.4 103/ul Normal 1.4-6.5 [facility] Comment on above: Performed By: #### H CVPCRR #### [facility] [address] [place] [address] Dr. Daryn Rosario Neutrophils/100 WBC (Bld) 66.2 % Normal 43.0-75.0 [facility] Comment on above: Performed By: #### H CVPCRR #### [facility] [address] [place] [address] Dr. Daryn Rosario Platelet mean volume (Bld) [Entitic vol] 9.4 fL Critically low 9.5-13.5 [facility] Comment on above: Performed By: #### H CVPCRR #### [facility] [address] [place] [address] Dr. Daryn Rosario PLT 347 103/ul Normal 150-450 [facility] Comment on above: Performed By: #### H CVPCRR #### [facility] [address] [place] [address] Dr. Daryn Rosario RBC 4.36 106/ul Normal 4.20-5.40 [facility] Comment on above: Performed By: #### H CVPCRR #### [facility] [address] [place] [address] Dr. Daryn Rosario WBC 8.1 103/ul Normal 4.0-11.0 [facility] Comment on above: Performed By: #### H CVPCRR #### [facility] [address] [place] [address] Dr. Daryn Rosario CULTURE URINEon 11-04-2022 CULTURE URINE Culture Observations: LIGHT GROWTH OF MIXED GENITAL KARTHIKEYAN. NO POTENTIAL PATHOGENS SEEN. Normal [facility] Comment on above: Performed By: #### L BCFSH #### [facility] [address] [place] [address] Dr. Daryn Rosario GLYCOHEMOGLOBIN A1Con 2022 ADA RECOMMENDATION SEE BELOW Normal [facility] Comment on above: Result Comment: ADA RECOMMENDED LIMIT 4.0 - 6.0 ADA THERAPEUTIC TARGET < 7.0 ACTION SUGGESTED > 7.0 Performed By: #### A 1C #### [facility] [address] [place] [address] Dr. Daryn Rosario Glucose [Mass/Vol] 97 mg/dL Normal [facility] Comment on above: Performed By: #### A 1C #### [facility] [address] [place] [address] Dr. Daryn Rosario HbA1c (Bld) [Mass fraction] 5.0 % Normal 4.5-6.2 [facility] Comment on above: Performed By: #### A 1C #### [facility] [address] [place] [address] Dr. Daryn Rosario TSHon 11-04-2022 TSH 1.102 uIU/mL Normal 0.358-3.740 [facility] Comment on above: Performed By: #### T SH #### [facility] [address] [place], [place] [address] Dr. Daryn Rosario TYPE AND SCREENon 11-04-2022 TYPE AND SCREEN Negative Normal [facility] Comment on above: Performed By: #### L [facility] #### [facility] [address] [place], [place] [address] Dr. Daryn Rosario US PREG TVon 11-04-2022 US PREG TV EXAMINATION: US PREG TV HISTORY: Missed period COMPARISON: 09/08/2022 FINDINGS: Pa intrauterine gestation Gestational sac: 3.58 cm, 8 weeks 5 days CRL: 2.46 cm, 9 weeks 1 day Yolk sac: 4.8 mm Heart rate: 165 bpm Cervix: Closed, 4.4 cm The uterus is normal, anteverted, anteflexed The right ovary is visualized. The left ovary is normal Clinical age: 9 weeks 1 day Clinical FARIDA: 06/08/2023 Ultrasound age: 9 weeks 0 days Ultrasound FARIDA: 06/09/2023 IMPRESSION: Pa intrauterine gestation measuring 9 weeks 0 days Electronically authenticated by: SUSAN YEAGER Date: 2022-11-04 10:32 Normal [facility]30 SARS-CoV-2 (COVID-19) RNA DOUG+probe Ql (Unsp spec) Not detected Normal NOT DETECTED [facility] Comment on above: Result Comment: This test is not yet approved or cleared by the [place] FDA. When there are no FDA-approved or cleared tests available, and other criteria are met, FDA can make tests available under an emergency access mechanism called an Emergency Use Authorization (EUA). The EUA for this test is supported by the [place] of Health and Human Service's (HHS's) declaration that circumstances exist to justify the emergency use of in vitro diagnostics for the detection and/or diagnosis of the virus that causes COVID-19. This EUA will remain in effect (meaning this test can be used) for the duration of the COVID-19 declaration justifying emergency of IVDs, unless it is terminated or revoked by FDA (after which the test may no longer be used). When diagnostic testing is negative, the possibility of a false negative should be considered in the context of a patient's recent exposures and the presence of clinical signs and symptoms consistent with SARS-CoV-2. Performed By: #### L BCFSH #### [facility] [address] [place] [address] Dr. Daryn Rosario INFLUENZA A AND B AGon 10-27 INFLUANEGH SEE BELOW Normal [facility] Comment on above: Result Comment: Nega tive for Flu A protein angiten. Infection due to Flu A cannot be ruled out. Flu A angiten in the sample may be below the detection limit of the test. Performed By: #### I NFLUAB #### [facility] [address] [place] [address] Dr. Daryn Rosario INFLUBNEG SEE BELOW Normal [facility] Comment on above: Result Comment: Nega tive for Flu B protein antigen. Infection due to Flu B cannot be ruled out. Flu B antigen in the sample may be below the detection limit of the test. Performed By: #### I NFLUAB #### [facility] [address] [place] [address] Dr. Daryn Rosario INFLUENZA A AG Negative Normal NEGATIVE SEE COMMENT [facility] Comment on above: Performed By: #### I NFLUAB #### [facility] [address] [place] [address] Dr. Daryn Rosario INFLUENZA B AG Negative Normal NEGATIVE SEE COMMENT [facility] Comment on above: Performed By: #### I NFLUAB #### [facility] [address] [place] [address] Dr. Daryn Rosario SYMPTOMATIC COVID-19 ANTIGEN on 10-27-2022 EUA Statement SEE BELOW Normal [facility] Comment on above: Result Comment: This test has not been FDA cleared or approved, but has been authorized by the FDA under an Emergency Use Authorization (EUA) for use by authorized laboratories certified under CLIA that meet the requirements to perform moderate or high complexity testing. This test has been authorized only for the detection of proteins from SARS-CoV-2, not for any other viruses or pathogens. The emergency use of this test is authorized for the duration of the declaration that circumstances exist justifying the authorization of emergency use of in vitro diagnostic tests for detection and/or diagnosis of Covid-19 under section 564(b)(1) of the Act, 21 U.S.C. 360bbb-3(b)(1), unless the declaration is terminated or authorization is revoked sooner. Performed By: #### L [facility] #### [facility] [address] [place] [address] [address] [address] Daryn Rosario SARS-CoV-2 (COVID-19) RNA DOUG+probe Ql (Unsp spec) Negative Normal NEGATIVE [facility] Comment on above: Performed By: #### L [facility] #### [facility] [address] [place], [place] [address] Dr. Daryn Rosario US PELVIS AND TRANSVAGon US PELVIS AND TRANSVAG EXAMINATION: US PELVIS AND TRANSVAG HISTORY: Fertility care , infertility, polycystic ovarian syndrome COMPARISON: No relevant comparison available. TECHNIQUE: Transabdominal and transvaginal sonographic examination. FINDINGS: UTERUS: Normal size and appearance. Small amount of fluid within cervical canal. Uterus size: 9.0 x 3.7 x 5.0 cm ENDOMETRIUM: Normal homogeneous appearance. Endometrial thickness: 5 mm RIGHT OVARY: Normal size and appearance. Duplex Doppler demonstrates normal waveform and flow; resistive index 0.7. Ovary size: 3.3 x 1.8 x 2.6 cm LEFT OVARY: Normal size and appearance. Duplex Doppler demonstrates normal waveform and flow; resistive index 0.5. Ovary size: 3.1 x 1.8 x 2.2 cm CUL-DE-SAC: Unremarkable. No significant free fluid. BLADDER: Unremarkable. OTHER: None. IMPRESSION: 1. Normal pelvic ultrasound. No abnormal or suspicious findings. No increased number of follicles or enlarged follicles over 2.0 cm is. Electronically authenticated by: BRUNILDA NIEVES Date: 2022-09-08 14:05 Normal [facility] DHEA SERUMon 08-29-2022 Dehydroepiandrosterone (DHEA) 410 ng/dL Normal [facility] Comment on above: Result Comment: Age 1 - 5 years 0 - 67 6 - 7 years 0 - 110 8 - 10 years 0 - 185 11 - 12 years 0 - 201 13 - 14 years 0 - 318 15 - 16 years 39 - 481 17 - 19 years 40 - 491 >19 years 31 - 701 Performed By: #### H CVPCRR #### [facility] [address] [place] [address] Dr. Daryn Rosario DHEA-SULFATEon 08-26-2022 DHEA-Sulfate 226.0 ug/dL Normal 84.8-378.0 [facility] Comment on above: Performed By: #### L BCFSH #### [facility] [address] [place] [address] Dr. Daryn Rosario FSHon 08-26-2022 FSH 5.6 mIU/mL Normal [facility] Comment on above: Result Comment: Adul t Female: Follicular phase 3.5 - 12.5 Ovulation phase 4.7 - 21.5 Luteal phase 1.7 - 7.7 Postmenopausal 25.8 - 134.8 Performed By: #### L BCFSH #### [facility] [address] [place] [address] Dr. Daryn Rosario LUTEINIZING HORMONE (LH)on 0 08-26-2022 LH 9.6 mIU/mL Normal [facility] Comment on above: Result Comment: Adul t Female: Follicular phase 2.4 - 12.6 Ovulation phase 14.0 - 95.6 Luteal phase 1.0 - 11.4 Postmenopausal 7.7 - 58.5 Performed By: #### H CVPCRR #### [facility] [address] [place] [address] Dr. Daryn Rosario CBC AUTO DIFFon 08-25-2022 BASO # 0.1 103/ul Normal 0.0-0.1 [facility] Comment on above: Performed By: #### C BC #### [facility] [address] [place] [address] Dr. Daryn Rosario Basophils/100 WBC (Bld) 1.2 % Normal 0.2-2.0 [facility] Comment on above: Performed By: #### C BC #### [facility] [address] [place] [address] Dr. Daryn Rosario EO # 0.1 103/ul Normal 0.0-0.7 [facility] Comment on above: Performed By: #### C BC #### [facility] [address] [place] [address] Dr. Daryn Rosario Eosinophils/100 WBC (Bld) 2.0 % Normal 0.9-7.0 [facility] Comment on above: Performed By: #### C BC #### [facility] [address] [place] [address] Dr. Daryn Rosario Erythrocyte distribution width (RBC) [Ratio] 12.2 % Normal 11.0-15.0 [facility] Comment on above: Performed By: #### C BC #### [facility] [address] [place] [address] Dr. Daryn Rosario Hematocrit (Bld) [Volume fraction] 45.0 % Normal 36.0-48.0 [facility] Comment on above: Performed By: #### C BC #### [facility] [address] [place] [address] Dr. Daryn Rosario Hemoglobin (Bld) [Mass/Vol] 14.0 g/dL Normal 12.0-16.0 [facility] Comment on above: Performed By: #### C BC #### [facility] [address] [place] [address] Dr. Daryn Rosario IG # 0.02 10e3/ul Normal 0.00-0.03 [facility] Comment on above: Performed By: #### C BC #### [facility] [address] [place] [address] Dr. Daryn Rosario IG % 0.3 % Normal 0.0-0.5 [facility] Comment on above: Performed By: #### C BC #### [facility] [address] [place] [address] Dr. Daryn Rosario LYMPH # 2.3 103/ul Normal 1.2-3.8 [facility] Comment on above: Performed By: #### C BC #### [facility] [address] [place] [address] Dr. Daryn Rosario Lymphocytes/100 WBC (Bld) 34.6 % Normal 20.5-60.0 [facility] Comment on above: Performed By: #### C BC #### [facility] [address] [place] [address] Dr. Daryn Rosario MANUAL DIFF REQ NO Normal [facility] Comment on above: Performed By: #### C BC #### [facility] [address] [place] [address] Dr. Daryn Rosario MCH (RBC) [Entitic mass] 29.7 pg Normal 26.7-34.0 [facility] Comment on above: Performed By: #### C BC #### [facility] [address] [place] [address] Dr. Daryn Rosario MCHC (RBC) [Mass/Vol] 31.1 g/dL Normal 29.9-35.2 [facility] Comment on above: Performed By: #### C BC #### [facility] [address] [place] [address] Dr. Daryn Rosario MCV (RBC) [Entitic vol] 95.3 fL Normal 81.0-99.0 [facility] Comment on above: Performed By: #### C BC #### [facility] [address] [place] [address] Dr. Daryn Rosario MONO # 0.7 103/ul Normal 0.3-0.8 [facility] Comment on above: Performed By: #### C BC #### [facility] [address] [place] [address] Dr. Daryn Rosario Monocytes/100 WBC (Bld) 10.8 % Normal 1.7-12.0 [facility] Comment on above: Performed By: #### C BC #### [facility] [address] [place] [address] Dr. Daryn Rosario NEUT # 3.4 103/ul Normal 1.4-6.5 [facility] Comment on above: Performed By: #### C BC #### [facility] [address] [place] [address] Dr. Daryn Rosario Neutrophils/100 WBC (Bld) 51.1 % Normal 43.0-75.0 [facility] Comment on above: Performed By: #### C BC #### [facility] [address] [place] [address] Dr. Daryn Rosario Platelet mean volume (Bld) [Entitic vol] 9.6 fL Normal 9.5-13.5 [facility] Comment on above: Performed By: #### C BC #### [facility] [address] [place] [address] Dr. Daryn Rosario PLT 362 103/ul Normal 150-450 [facility] Comment on above: Performed By: #### C BC #### [facility] [address] [place] [address] Dr. Daryn Rosario RBC 4.72 106/ul Normal 4.20-5.40 [facility] Comment on above: Performed By: #### C BC #### [facility] [address] [place] [address] Dr. Daryn Rosario WBC 6.7 103/ul Normal 4.0-11.0 [facility] Comment on above: Performed By: #### C BC #### [facility] [address] [place] [address] Dr. Daryn Rosario FREE T4on 08-25-2022 Free T4 [Mass/Vol] 0.97 ng/dL Normal 0.76-1.46 [facility] Comment on above: Performed By: #### H CVPCRR #### [facility] [address] [place] [address] Dr. Daryn Rosario GLYCOHEMOGLOBIN A1Con 2022 ADA RECOMMENDATION SEE BELOW Normal [facility] Comment on above: Result Comment: ADA RECOMMENDED LIMIT 4.0 - 6.0 ADA THERAPEUTIC TARGET < 7.0 ACTION SUGGESTED > 7.0 Performed By: #### H CVPCRR #### [facility] [address] [place] [address] Dr. Daryn Rosario Glucose [Mass/Vol] 103 mg/dL Normal [facility] Comment on above: Performed By: #### H CVPCRR #### [facility] [address] [place] [address] Dr. Daryn Rosario HbA1c (Bld) [Mass fraction] 5.2 % Normal 4.5-6.2 [facility] Comment on above: Performed By: #### H CVPCRR #### [facility] [address] [address] [address] Daryn Rosario TSHon 08-25-2022 TSH 1.472 uIU/mL Normal 0.358-3.740 [facility] Comment on above: Performed By: #### T SH #### [facility] [address] [address] [address] Daryn Rosario PAP ACOG PANEL 2: 30 to 65on 08-19-2022 . . Normal [facility] Comment on above: Result Comment: Perf ormed at: WB Performed By: #### H CVPCRR #### [facility] [address] [address] [address] Daryn Rosario Age Gdln ACOG Testing [facility] Comment on above: Performed By: #### H CVPCRR #### [facility] [address] [place] [address] Dr. Daryn Rosario DIAGNOSIS: Comment Normal [facility] Comment on above: Result Comment: NEGA TIVE FOR INTRAEPITHELIAL LESION OR MALIGNANCY. Performed at: WB Performed By: #### H CVPCRR #### [facility] [address] [address] [address] Daryn Rosario HPV Aptima Negative Normal Negative [facility] Comment on above: Result Comment: This nucleic acid amplification test detects fourteen high-risk HPV types (16,18,31,33,35,39,45,51,52,56,58,59,66,68) without differentiation. Performed at: =G Performed By: #### H CVPCRR #### [facility] [address] [address] [address] Daryn Rosario HPV Genotype Reflex Comment Normal [facility] Comment on above: Result Comment: Crit eria not met, HPV Genotype not performed. Performed at: WB Performed By: #### H CVPCRR #### [facility] [address] [address] [address] Daryn Rosario Methodology: Comment Normal [facility] Comment on above: Result Comment: This liquid based ThinPrep(R) pap test was screened with the use of an image guided system. Performed at: WB Performed By: #### H CVPCRR #### [facility] [address] [address] [address] Daryn Rosario Note: Comment [facility] Comment on above: Result Comment: The Pap smear is a screening test designed to aid in the detection of premalignant and malignant conditions of the uterine cervix. It is not a diagnostic procedure and should not be used as the sole means of detecting cervical cancer. Both false-positive and false-negative reports do occur. . Performed at: WB Performed By: #### H CVPCRR #### [facility] [address] [address] [address] Daryn Rosario Performed by: Comment Normal [facility] Comment on above: Result Comment: Redd Powell, Soil Science Professor Performed at: WB Performed By: #### H CVPCRR #### [facility] [address] [place] [address] Dr. Daryn Rosario Specimen adequacy: Comment Normal [facility] Comment on above: Result Comment: Sati sfactory for evaluation. Endocervical and/or squamous metaplastic cells (endocervical component) are present. Performed at: WB Performed By: #### H CVPCRR #### [facility] [address] [address] [address] Daryn Rosario COVID Quick Testingon 2020 Result Negative [facility] Other PT - Assessmentson PT - Assessments [id number] 172#1.00CD:127 Normal [facility] PT - Consentson 11-12-2020 PT - Consents [id number] 797#1.00CD:127 Normal [facility] PT - Home Exercise Programon 11-12-2020 PT - Home Exercise Program [id number] 629#1.00CD:127 Normal [facility] PT - Orderson 11-10-2020 PT - Orders [id number] 962#1.00CD:127 Normal [facility] Coding Summary.on 11-09-2020 Coding Summary. CODING DATE: 11/09/2020 FINAL [facility] STATUS: PAYOR: Gil ADMIT DX: REASON FOR VISIT DX: R42 Dizziness and giddiness FINAL DX: PRINCIPAL: R42 Dizziness and giddiness SECONDARY: PYMT PROC APC STAT DESCRIPTION DOCTOR NAME DATE NOTE: The code number assigned matches the documented diagnosis and / or procedure in the patient's chart. However, the narrative phrase printed from the coding software may appear abbreviated, or result in slightly different terminology. Coded By: Marysol Rojas CphT Date Saved: 11/09/2020 07:36 pm Normal [facility] Coding Summary. CODING DATE: 11/09/2020 [facility] STATUS: Home (Routine DC) PAYOR: Gil ADMIT DX: REASON FOR VISIT DX: Z12.4 Encounter for screening for malignant neoplasm of cervix FINAL DX: PRINCIPAL: Z12.4 Encounter for screening for malignant neoplasm of cervix SECONDARY: PYMT PROC APC STAT DESCRIPTION DOCTOR NAME DATE NOTE: The code number assigned matches the documented diagnosis and / or procedure in the patient's chart. However, the narrative phrase printed from the coding software may appear abbreviated, or result in slightly different terminology. Coded By: Marysol Rojas CphT Date Saved: 11/09/2020 08:07 am Normal [facility] Consenton 11-09-2020 Consent [id number] 236#1.00CD:127 Normal [facility] PT - Orderson 11-09-2020 PT - Orders [id number] 527#1.00CD:127 Normal [facility] PAP [id number] 11-02-2020 C. trachomatis rRNA DOUG+probe Ql (Cvx) Negative Invalid Interpretation Code Negative [facility] Comment on above: Performed By: #### 1 [id number] #### [facility] [address] [place] [address] Cytology report Cyto stain Doc (Cvx/Vag) Note Invalid Interpretation Code [facility] Comment on above: Result Comment: TEST S RESULT FLAG UNITS REF RANGE LAB Clinician Provided Cytology Information Source.............Endocervix No. of containers..01 ThinPrep Vial DIAGNOSIS: 01 NEGATIVE FOR INTRAEPITHELIAL LESION OR MALIGNANCY. CELLULAR CHANGES ASSOCIATED WITH INFLAMMATION ARE PRESENT. 01 Satisfactory for evaluation. Endocervical and/or squamous metaplastic cells (endocervical component) are present. 01 Jose Gordon, Soil Science Professor ([facility]) 01 Note 01 The Pap smear is a screening test designed to aid in the detection of premalignant and malignant conditions of the uterine cervix. It is not a diagnostic procedure and should not be used as the sole means of detecting cervical cancer. Both false-positive and false-negative reports do occur. Test Methodology: Note 01 This liquid based ThinPrep(R) pap test was screened with the use of an image guided system. . 01 The HPV DNA reflex criteria were not met with this specimen result therefore, no HPV testing was performed. FLAG LEGEND: L-Low Normal,H-High Normal,LL-Alert Low,HH-Alert High <-Panic Low,>-Panic High,A-Abnormal,AA-Critical Abnormal Performed at: [address] [facility] [place] [address] Shelbie Chavira MD, Performed By: #### 1 [id number] #### [facility] [address] [place] [address] N. gonorrhoeae rRNA DOUG+probe Ql (Cvx) Negative Invalid Interpretation Code Negative [facility] Comment on above: Performed By: #### 1 [id number] #### [facility] [address] [place] [address] T. vaginalis rRNA DOUG+probe Ql (Unsp spec) Negative Invalid Interpretation Code Negative [facility] Comment on above: Result Comment: Perf ormed at: WB [facility] [address], [place] [id number] MD Cait Morfin Performed at: =G [facility] [address], [place] [id number] MD Cait Morfin Performed By: #### 1 [id number] #### [facility] [address] [place] [address] Ambulatory Clinical Summaryo n 10-27-2020 Ambulatory Clinical Summary {[id number]}CD:[id number] Normal [facility] Gynecology Office/Clinic Not ortega 10-27-2020 Gynecology Office/Clinic Note Chief Complaint annual wwe Obstetric History History (0,0,0,1) # 1 Baby 1 Outcome Date: 08/16/2018 Outcome: Live Outcome or Result: Vaginal Gender: Female Gest Age: 40 weeks 1 days Wt: 4008 g Hospital: -- [facility] Labor: 28 hr 16 min Child's Name: -- Baby's Father: -- Complications: None Complications: None HPI Staff Pt here today for an annual wwe. Pap done 2.13.18 ASCUS HPV Neg. Order is in. Pt c/o 3 day migraines every month when her period starts, is wondering if it could be related to her control. The standard range for ages 18 and older is >=18.5 and < 25 kg/m2. Your BMI today was above this range, this falls in the overweight to obese category and there are medical benefits to weight loss. We can offer counselling, referral, and/or medical support in addressing this problem. Your BMI and weight management will be followed at subsequent visits. History of Present Illness Pt here today for annual gynecological exam. Feeling well. Periods- regular, normal flow Last pap- 09/12/2017 ASCUS, HPV negative control- Tri-sprintec for the past 6 years. Even before being on the tri-sprintec she had a 2-3 day stretch of daily migraines right before her period starts. Her Imitrex resolves them for the day [employer] complaints- denies Bowel/Bladder complaints- denies Mood- good, stable Relationship status- , monogamous STD concerns- denies Review of Systems PHQ Score Initial Depression Screen Score: 0 Constitutional: No fever, No chills, No sweats, No weakness. No Weight change; No fatigue. Skin: No rash, No lesions. ENMT: No ear pain, No sore throat, No congestion. Respiratory: No shortness of breath, No cough, No orthopnea, No wheezing. Cardiovascular: No chest pain, No palpitations, No peripheral edema. Gastrointestinal: No nausea, No vomiting, No diarrhea, No GI bleeding. Genitourinary: No dysuria, No hematuria, No discharge, No pain. Gynecology: No abnormal vaginal discharge, No vaginal itching/burning, No vaginal dryness, No painful periods, No abnormal bleeding, No pelvic pain, No painful intercourse, No hair loss/growth, No hot flashes Breast: No breast pain, No skin changes, No masses/lumps, No nipple discharge. Musculoskeletal: No back pain, No trauma. Neurological: No headache, No dizziness, No numbness, No weakness. Psychiatric: No sleeping problems, No irritability, No mood swings/depression. Heme/Lymph: No bleeding tendency, No bruising tendency, No petechiae, No swollen. Physical Exam Vitals & Measurements HR: 84(Peripheral) BP: 118/72 HT: 169 cm HT: 169.0 cm WT: 120.6 kg WT: 120.6 kg BMI: 42.23 General: Well developed, well nourished, in no acute distress Obese Neck: Neck supple. No masses or palpable cervical nodes. Trachea midline. Thyroid without nodules, masses, tenderness, or enlargement Breast: No mass, nodule, discharge, or erythema bilaterally, and no axillary lymphadenopathy Lungs: Normal respiratory effort and clear to auscultation Cardio: Regular rate and rhythm, normal S1 and S2, no murmur, no rub Abdomen: Soft, non-distended, non-tender, normal bowel sounds x4 Gyno: normal external genitalia. Urethra no discharge. Vagina normal without lesions, no vaginal discharge. Cervix normal, without lesions. Uterus normal. No adnexal masses. Pap obtained Neurologic: Grossly normal Skin: [employer], moist, no tenting Lymph Nodes: No cervical adenopathy, nodes normal Mental Status: Alert and oriented x3. Normal mood and affect Assessment/Plan 1. Encounter for screening for cervical cancer (Z12.4: Encounter for screening for malignant neoplasm of cervix) Pap obtained today per ASCCP guidelines, will call with results Cont Tri-Sprintec for contraception, pt does not wish to try a different pill at this time for her migraines Encouraged to perform monthly self breast exams, educated on proper procedure RTC annually and prn Ordered: Est Preventative 18 to 39 years [id number]/NG/Trich rflx HPV 2. BMI 40.0-44.9, adult (Z68.41: Body mass index [BMI]40.0-44.9, adult) Discussed health risks of obesity Encouraged healthy, balanced diet low in sugar, fat, carbs Encouraged exercise regimen Ordered: Body Mass Index (BMI) documented 3008F Cervical cancer screening results documented and reviewed 3015F Est Preventative 18 to 39 years [address] Most recent diastolic blood pressure <80 mm Hg 3078F Systolic BP <130 mm Hg (Most Recent) 3074F Follow-up With When Contact Information [facility] In 1 year [address] [place] [address]- Business (1) Additional Instructions: Problem List/Past Medical History Ongoing No qualifying data Historical Procedure/Surgical History Kidney operation (1999), Bladder operation (1997), Eye operation (1997). Medications Tri-Sprintec 35 mcg Tab, 1 tab(s), Oral, Daily, 4 refills Allergies No Known Nik (more content not included)... Normal [facility] Comment on above: Result Comment: Elec tronically Signed By: Purvi PANDYA CNP\Date and Time Signed: 10/27/20 10:27 EDT PAP [id number] 10-27-2020 Gynecological Body Site ENDOCERVIX Normal [facility] Comment on above: Performed By: #### 1 [id number] #### [facility] [address] [place] [address] Patient Educationon 10-28-19 Patient Education Exercise to Lose Weight Exercise and a healthy diet may help you lose weight. Your doctor may suggest specific exercises. EXERCISE IDEAS AND TIPS ? Choose low-cost things you enjoy doing, such as walking, bicycling, or exercising to workout videos. ? Take stairs instead of the elevator. ? Walk during your lunch break. ? Park your car further away from work or school. ? Go to a gym or an exercise class. ? Start with 5 to 10 minutes of exercise each day. Build up to 30 minutes of exercise 4 to 6 days a week. ? Wear shoes with good support and comfortable clothes. ? Stretch before and after working out. ? Work out until you breathe harder and your heart beats faster. ? Drink extra water when you exercise. ? Do not do so much that you hurt yourself, feel dizzy, or get very short of breath. Exercises that burn about 150 calories: ? Running 1 ? miles in 15 minutes. ? Playing volleyball for 45 to 60 minutes. ? Washing and waxing a car for 45 to 60 minutes. ? Playing touch football for 45 minutes. ? Walking 1 ? miles in 35 minutes. ? Pushing a stroller 1 ? miles in 30 minutes. ? Playing basketball for 30 minutes. ? Raking leaves for 30 minutes. ? Bicycling 5 miles in 30 minutes. ? Walking 2 miles in 30 minutes. ? Dancing for 30 minutes. ? Shoveling snow for 15 minutes. ? Swimming laps for 20 minutes. ? Walking up stairs for 15 minutes. ? Bicycling 4 miles in 15 minutes. ? Gardening for 30 to 45 minutes. ? Jumping rope for 15 minutes. ? Washing windows or floors for 45 to 60 minutes. Document Released: 08/19/2011 Document Revised: 10/08/2012 Document Reviewed: 08/19/2011 ExitCare? Patient Information ?2013 [employer] Normal [facility] Vital Signs Date Time Vital Sign Value Performing Clinician Facility 07-15-2021 11:00-0500 Body height 154.94 cm Mami Ahmadi Other [facility] 07-15-2021 11:00-0500 Body mass index (BMI) [Ratio] 49.69 kg/m2 Mami Ahmadi Other [facility] 07-15-2021 11:00-0500 Body temperature 96.2 [degF] Mami Ahmadi Other [facility] Other 07-15-2021 11:00-0500 Body weight 119.3 kg Mami Ahmadi Other [facility] Other 07-15-2021 11:00-0500 Respiratory rate 18 /min Mami Ahmadi Other [facility] Other 07-15-2021 11:00-0500 SaO2% (BldA) [Mass fraction] 98 % Mami Ahmadi Other [facility] Other Encounters Encounter Date Encounter Type Care Provider Facility Start: 07-19-2023 End: 07-19-2023 ambulatory [facility] BRENNEN Not Available Start: 11-04-2022 End: 11-05-2022 ambulatory ESME MATTHEW Facility:[facility] Start: 11-04-2022 End: 11-05-2022 ambulatory ESME MATTHEW Facility:[facility] Start: 10-27-2022 End: 10-27-2022 ambulatory ESME MATTHEW Facility:[facility] Start: 09-08-2022 End: 09-09-2022 ambulatory ESME MATTHEW Facility:[facility] Start: 08-25-2022 End: 08-26-2022 ambulatory ESME MATTHEW Facility:[facility] Start: 08-15-2022 End: 08-15-2022 ambulatory ESME MATTHEW Facility:[facility] Start: 05-24-2022 End: 05-25-2022 ambulatory JERROD STINSON Facility:[facility] Start: 05-16-2022 End: 05-16-[address] NAVIN JIMÉNEZ . Facility: Start: 07-15-2021 End: 07-15-2021 ambulatory Mami Ahmadi Other [facility] Start: 07-15-2021 Office outpatient visit 15 minutes Mami Ahmadi [facility] Payers Date Payer Category Payer Unknown [id number] 2.16.84 [id number] 1988 Unknown [id number] 2.16.84 [id number] 1988 Unknown [id number] 2.16.84 [id number] 1988 Unknown [id number] 2.16.84 [id number] 1988 Unknown [id number] 2.16.84 [id number] 1988 Unknown [id number] 2.16.84 [id number] 1988 Unknown [id number] 2.16.84 [id number] 1988 Unknown [id number] 2.16.84 [id number] 1988 Unknown [id number] 2.16.840 .[id number] 1961 [facility] [id number] 1961 Unknown Social History Date Type Detail Facility Unknown if ever smoked [facility] Other Sex Assigned At Sex Assigned At Bir th [facility] Other Clinical Note 05-24-2022 Note Date & Type Note Facility 05-24-2022 Note PROCEDURE: XR FOOT L T MIN 3 VIEWS, XR ANKLE LT MIN 3 V HISTORY: Sprain of left foot ; lateral ankle pain, twisting injury COMPARISON: XR foot left 05/16/2022 FINDINGS: BONES:No fracture, acute abnormality, or significant arthropathy. SOFT TISSUES:Mild soft tissue swelling surrounding the ankle and proximal foot. EFFUSION:None visible. OTHER: Negative. IMPRESSION: 1. No acute bone abnormality of left ankle and foot. Electronically authenticated by: BRUNILDA NIEVES Date: 2022-05-24 16:57 [facility] Clinical Note 05-24-2022 Note Date & Type Note Facility 05-24-2022 Note PROCEDURE: XR FOOT L T MIN 3 VIEWS, XR ANKLE LT MIN 3 V HISTORY: Sprain of left foot ; lateral ankle pain, twisting injury COMPARISON: XR foot left 05/16/2022 FINDINGS: BONES:No fracture, acute abnormality, or significant arthropathy. SOFT TISSUES:Mild soft tissue swelling surrounding the ankle and proximal foot. EFFUSION:None visible. OTHER: Negative. IMPRESSION: 1. No acute bone abnormality of left ankle and foot. Electronically authenticated by: BRUNILDA NIEVES Date: 2022-05-24 16:57 [facility] Clinical Note 05-16-2022 Note Date & Type Note Facility 05-16-2022 Note PROCEDURE: XR FOOT L T MIN 3 VIEWS HISTORY: Injury of left foot ; fifth metatarsal pain COMPARISON: None. FINDINGS: BONES:No fracture, acute abnormality, or significant arthropathy. SOFT TISSUES:No visible soft tissue swelling. EFFUSION:None visible. OTHER: Negative. IMPRESSION: 1. No acute bone abnormality or significant degenerative changes. Electronically authenticated by: BRUNILDA NIEVES Date: 2022-05-16 12:40 [facility] Evaluation note 07-15-2021 Note Date & Type Note Facility 07-15-2021 Evaluation note Encounter Date Diagnosis Assessment Notes Jun, Contact with and (suspected) exposure to other viral communicable diseases (ICD-10 - Z20.828) Even though COVID RAPID test is NEGATIVE, I am highly suspicious at this time you may be positive due to the symptoms. Recommend patient follow Quarantine guidelines until you follow up with PCP.. Recommend OTC medication such as Mucinex, Sea salt nasal spray, Cepecol, Tylenol, Zyrtec, as they can help with symptoms VIRAL URI HANDOUT GIVEN TO PATIENT THAT RECOMMENDS OTC MEDICATIONS, FOLLOW UP AND WHEN TO SEEK EMERGENCY TREATMENT Jun, Bronchitis (ICD-10 - J40) Take medications as directed. Rest and increase fluid intake. Take meds with food to prevent stomach upset. Use inhaler as needed for coughing spells and SOB. It is better to use inhaler a few times a day over the next 2-3 days. Follow up with primary care provider if symptoms do not improve with treatment plan, although it may take a few weeks for the cough to go away Jun, Other Additional time spent conducting pre-visit phone call, screening for symptoms, instructions on social distancing, application and removal of PPE, and cleaning of examination room, equipment and supplies was preformed. Patient education given for testing methodology and results. Patient care instructions given in writting by [facility] document. [facility] Other History general Narrative - Reported Note Date & Type Note Facility History general Narrative - Reported Type Medical History migraine headache Surgical History eyes Surgical History bladder surgery Hospitalization History see above [facility] Other Summary Purpose Family History No Family History Records FoundNo Family History Records FoundNo Family History Records Found Advance Directives No Advanced Directives Records FoundNo Advanced Directives Records FoundNo Advanced Directives Records Found Additional Source Comments INFORMATION SOURCE (unrecogn ized section and content) DATE CREATED AUTHOR 02/04/2021 [facility] DATE CREATED AUTHOR AUTHOR'S ORGANIZ ATION 11/07/2022 [facility] DATE CREATED AUTHOR AUTHOR'S ORGANIZ ATION 07/20/2023 [facility] REASON FOR VISIT (unrecogniz ed section and content) #5 TAWANDA SAVAGE, POSITIVE H OME TEST, COUGH, COVID Provider Visit FOR RECORDS PERTAINING TO PATIENTS WHO ARE OR HAVE BEEN ENROLLED IN A CHEMICAL DEPENDENCY/SUBSTANCEABUSE PROGRAM, SOME INFORMATION MAY BE OMITTED. This clinical summary was aggregated from multiple sources. Caution should be exercised in using it in the provision of clinical care. This summary normalizes information from multiple sources, and as a consequence, information in this document may materially change the coding, format and clinical context of patient data. In addition, data may be omitted in some cases. CLINICAL DECISIONS SHOULD BE BASED ON THE PRIMARY CLINICAL RECORDS. [facility] [employer] [facility]. provides no warranty or guarantee of the accuracy or completeness of information in this document.
[2023-09-04 15:07] LABS: Age Gdln ACOG Testing Note (.); HPV Aptima Negative (Negative); IGP, Aptima HPV, rfx 16/18,45 Note (.)
== END 2023-08-29 19:53 | disposition home or self-care (01) ==
LOC: LAB 19:52
PROVIDERS: Visit Provider Physician Assistant
DX: Z01.419 Encounter for gynecological examination (general) (routine) without abnormal findings (principal)
CPT/HCPCS: 87624; G0145

== ENCOUNTER 2024-01-25 13:13 | Outpatient (OUT) | payer BC, SELFPAY ==
--- NOTE | 2024-01-25 | XR_ITS ---
[address] [address] Patient Name: NATAN NOLEN MRN: [id number] date: 1990 Sex: F Assigned Patient Location: Current Patient Location: Accession/Order Number: [id number] Exam Date: 01/25/2024 13:15 Report Date: 01/25/2024 16:16 At the request of: NEIL AGUILAR Procedure: XR foot LT min 3V PROCEDURE: XR foot LT min 3V COMPARISON: HISTORY: LEFT FOOT PAIN FINDINGS: BONES:No acute fracture or dislocation. Minimal enthesopathic spurring of the calcaneus SOFT TISSUES:Negative. No visible soft tissue swelling. EFFUSION:None visible. OTHER: Negative. XR/XR foot LT min 3V IMPRESSION: Minimal calcaneal enthesopathy Electronically authenticated by: SUSAN YEAGER Date: 01/25/2024 16:16
--- OUTSIDE RECORDS SUMMARY | 2024-01-25 13:22 | XMS_ITS | CCD ---
Author Organization [facility] Care Team Providers Care Occasional Babysitter Name Role Phone Mami Ahmadi Unavailable MATTHEW, ESME Admitting Unavailable MATTHEW, ESME Attending Unavailable REQUEST, NONE LISTED Primary Care Unavaila ble MATTHEW, ESEM Consulting Unavailable MATTHEW, ESME Admitting Unavailable MATTHEW, ESME Attending Unavailable MATTHEW, ESME Consulting Unavailable MATTHEW, ESME Admitting Unavailable MATTHEW, ESME Attending Unavailable MATTHEW, ESME Consulting Unavailable MATTHEW, ESME Admitting Unavailable MATTHEW, ESME Attending Unavailable MATTHEW, ESME Consulting Unavailable MILAD, JERROD Admitting Unavailable MILAD, JERROD Attending Unavailable ZISHERYL, DR BRUNILDA Fraser Consulting Unavailable MILAD, JERROD Consulting Unavailable MATTHEW, ESME Admitting Unavailable MATTHEW, ESME Attending Unavailable REQUEST, NONE LISTED Primary Care Unavaila david YEAGER, DR SUSAN Weems Consulting Unavailable MATTHEW, ESME Consulting Unavailable MATTHEW, ESME Admitting Unavailable MATTHEW, ESME Attending Unavailable MATTHEW, ESME Consulting Unavailable ZIEBASHISH, DR BRUNILDA Fraser Consulting Unavailable JESSY ., DR HOLDEN Admitting Unavailable JESSY ., DR HOLDEN Attending Unavailable EZEQUIEL, DR BRUNILDA Fraser Consulting Unavailable JESSY ., DR HOLDEN Consulting Unavailable EMMA HUTTON Attending Unavailable BRENNEN, EMMA Attending Unavailable Medications Current Medications Medication Drug Class(es) Dates Sig (Normalized) Sig (Original) [id number] 200 actuat albuterol 0.09 mg/actuat metered dose inhaler (1 source) beta2-Adrenergic Agonist Start: 1 take 2 puff(s) by inhalation every four hours as needed Albuterol Sulfate HFA 108 (90 Base) MCG/ACT 2 puffs as needed Inhalation every 4 hrs Jun, Active methylPREDNISolone 4 mg oral tablet (1 source) Corticosteroid Start: 1 methylPREDNISolone 4 MG as directed Orally Once [...] on 11-05-2022 HBsAg Screen Negative Normal Negative [facility] Comment on above: Performed By: #### H CVPCRR #### [facility] [address] [address] [address] Daryn Rosario HEPATITIS C VIRUS AB W/ REFL EX QUANTon 11-05-2022 HCV AB Non-Reactive Normal Non Reactive [facility] Comment on above: Performed By: #### H CVPCRR #### [facility] [address] [address] [address] Daryn Rosario Interpretation: Comment Normal [facility] Comment on above: Result Comment: Not infected with HCV unless early or acute infection is suspected (which may be delayed in an immunocompromised individual), or other evidence exists to indicate HCV infection. Performed By: #### H CVPCRR #### [facility] [address] [address] [address] Daryn Rosario HIV 1 AND 2 WITH REFLEXon HIV Screen 4th Generation wRfx Non-Reactive Normal Non Reactive [facility] Comment on above: Result Comment: HIV Negative HIV-1/HIV-2 antibodies and HIV-1 p24 antigen were NOT detected. There is no laboratory evidence of HIV infection. Performed By: #### H IV12 #### [facility] [address] [address] [address] Daryn Rosario RPR QUANTon 11-05-2022 Rapid Plasma Reagin, Quant Non-Reactive Normal NonRea<1:1 [facility] Comment on above: Result Comment: Plea se Note: This test does not meet current guidelines for screening and diagnosis of syphilis. This test is intended for following treatment response in patients being treated for syphilis infection. To screen for syphilis infection, a reflex cascade that includes both RPR and a treponema-specific assay should be utilized, such as Treponema pallidum (Syphilis) Screening Urania (370524) or Rapid Plasma Reagin (RPR) Test With Reflex to Quantitative RPR and Confirmatory Treponema pallidum Antibodies (371005). Performed By: #### R PRQ #### [facility] [address] [place] [address] Dr. Daryn Rosario RUBELLA AB IGGon 11-05-2022 Rubella Antibodies, IgG 12.70 index Normal Immu ne >0.99 [facility] Comment on above: Result Comment: Non- immune <0.90 Equivocal 0.90 - 0.99 Immune >0.99 Performed By: #### R UBIGG #### [facility] [address] [place] [address] Dr. Daryn Rosario BOX TEST SENT OUTon 11-05-19 23 SENT TO REF LAB 11/04/2022 Normal [facility] Comment on above: Performed By: #### H CVPCRR #### [facility] [address] [place] [address] Dr. Daryn Rosario CBC AUTO DIFFon 11-04-2022 BASO # 0.0 103/ul Normal 0.0-0.1 [facility] Comment on above: Performed By: #### H CVPCRR #### [facility] [address] [place] [address] Dr. Daryn Rosario Basophils/100 WBC (Bld) 0.4 % Normal 0.2-2.0 [facility] Comment on above: Performed By: #### H CVPCRR #### [facility] [address] [place] [address] Dr. Daryn Rosario EO # 0.1 103/ul Normal 0.0-0.7 [facility] Comment on above: Performed By: #### H CVPCRR #### [facility] [address] [place] [address] Dr. Daryn Rosario Eosinophils/100 WBC (Bld) 1.4 % Normal 0.9-7.0 [facility] Comment on above: Performed By: #### H CVPCRR #### [facility] [address] [place] [address] Dr. Daryn Rosario Erythrocyte distribution width (RBC) [Ratio] 12.4 % Normal 11.0-15.0 [facility] Comment on above: Performed By: #### H CVPCRR #### [facility] [address] [place] [address] Dr. Daryn Rosario Hematocrit (Bld) [Volume fraction] 38.5 % Normal 36.0-48.0 [facility] Comment on above: Performed By: #### H CVPCRR #### [facility] [address] [place] [address] Dr. Daryn Rosario Hemoglobin (Bld) [Mass/Vol] 13.3 g/dL Normal 12.0-16.0 [facility] Comment on above: Performed By: #### H CVPCRR #### [facility] [address] [place] [address] Dr. Daryn Rosario IG # 0.03 10e3/ul Normal 0.00-0.03 [facility] Comment on above: Performed By: #### H CVPCRR #### [facility] [address] [place] [address] Dr. Daryn Rosario IG % 0.4 % Normal 0.0-0.5 [facility] Comment on above: Performed By: #### H CVPCRR #### [facility] [address] [place] [address] Dr. Daryn Rosario LYMPH # 1.9 103/ul Normal 1.2-3.8 [facility] Comment on above: Performed By: #### H CVPCRR #### [facility] [address] [place] [address] Dr. Daryn Rosario Lymphocytes/100 WBC (Bld) 23.2 % Normal 20.5-60.0 [facility] Comment on above: Performed By: #### H CVPCRR #### [facility] [address] [place] [address] Dr. Daryn Rosario MANUAL DIFF REQ NO Normal [facility] Comment on above: Performed By: #### H CVPCRR #### [facility] [address] [place] [address] Dr. Daryn Rosario MCH (RBC) [Entitic mass] 30.5 pg Normal 26.7-34.0 [facility] Comment on above: Performed By: #### H CVPCRR #### [facility] [address] [address] [address] Daryn Rosario MCHC (RBC) [Mass/Vol] 34.5 g/dL Normal 29.9-35.2 [facility] Comment on above: Performed By: #### H CVPCRR #### [facility] [address] [place] [address] Dr. Daryn Rosario MCV (RBC) [Entitic vol] 88.3 fL Normal 81.0-99.0 [facility] Comment on above: Performed By: #### H CVPCRR #### [facility] [address] [place] [address] Dr. Daryn Rosario MONO # 0.7 103/ul Normal 0.3-0.8 [facility] Comment on above: Performed By: #### H CVPCRR #### [facility] [address] [place] [address] Dr. Daryn Rosario Monocytes/100 WBC (Bld) 8.4 % Normal 1.7-12.0 [facility] Comment on above: Performed By: #### H CVPCRR #### [facility] [address] [place] [address] Dr. Daryn Rosario NEUT # 5.4 103/ul Normal 1.4-6.5 [facility] Comment on above: Performed By: #### H CVPCRR #### [facility] [address] [place] [address] Dr. Daryn Rosario Neutrophils/100 WBC (Bld) 66.2 % Normal 43.0-75.0 [facility] Comment on above: Performed By: #### H CVPCRR #### [facility] [address] [place] [address] Dr. Daryn Rosario Platelet mean volume (Bld) [Entitic vol] 9.4 fL Critically low 9.5-13.5 [facility] Comment on above: Performed By: #### H CVPCRR #### [facility] [address] [place] [address] Dr. Daryn Rosario PLT 347 103/ul Normal 150-450 [facility] Comment on above: Performed By: #### H CVPCRR #### [facility] [address] [place] [address] Dr. Daryn Rosario RBC 4.36 106/ul Normal 4.20-5.40 [facility] Comment on above: Performed By: #### H CVPCRR #### [facility] [address] [place] [address] Dr. Daryn Rosario WBC 8.1 103/ul Normal 4.0-11.0 [facility] Comment on above: Performed By: #### H CVPCRR #### [facility] [address] [place] [address] Dr. Daryn Rosario CULTURE URINEon 11-04-2022 CULTURE URINE Culture Observations: LIGHT GROWTH OF MIXED GENITAL KARTHIKEYAN. NO POTENTIAL PATHOGENS SEEN. Normal [facility] Comment on above: Performed By: #### L BCFSH #### [facility] [address] [place] [address] Dr. Daryn Rosario GLYCOHEMOGLOBIN A1Con 2022 ADA RECOMMENDATION SEE BELOW Normal [facility] Comment on above: Result Comment: ADA RECOMMENDED LIMIT 4.0 - 6.0 ADA THERAPEUTIC TARGET < 7.0 ACTION SUGGESTED > 7.0 Performed By: #### A 1C #### [facility] [address] [place] [address] Dr. Daryn Rosario Glucose [Mass/Vol] 97 mg/dL Normal [facility] Comment on above: Performed By: #### A 1C #### [facility] [address] [place] [address] Dr. Daryn Rosario HbA1c (Bld) [Mass fraction] 5.0 % Normal 4.5-6.2 [facility] Comment on above: Performed By: #### A 1C #### [facility] [address] [place] [address] Dr. Daryn Rosario TSHon 11-04-2022 TSH 1.102 uIU/mL Normal 0.358-3.740 [facility] Comment on above: Performed By: #### T SH #### [facility] [address] [place] [address] Dr. Daryn Rosario TYPE AND SCREENon 11-04-2022 TYPE AND SCREEN Negative Normal [facility] Comment on above: Performed By: #### L [facility] #### [facility] [address] [address] [address] Daryn Rosario US PREG TVon 11-04-2022 [...] SUSAN YEAGER Date: 2022-11-04 10:32 Normal [facility]30 SARS-CoV-2 (COVID-19) RNA DOUG+probe Ql (Unsp spec) Not detected Normal NOT DETECTED [facility] Comment on above: Result Comment: This test is not yet approved or cleared by the [place] FDA. When there are no FDA-approved or cleared tests available, and other criteria are met, FDA can make tests available under an emergency access mechanism called an Emergency Use Authorization (EUA). The EUA for this test is supported by the Senior Ui Designer of Health and Human Service's (HHS's) declaration [...] consistent with SARS-CoV-2. Performed By: #### L [facility] #### [facility] [address] [place] [address] Dr. Daryn Rosario INFLUENZA A AND B AGon 10-27 INFLUANEGH SEE BELOW Normal [facility] Comment on above: Result Comment: Nega tive for Flu A protein angiten. Infection due to Flu A cannot be ruled out. Flu A angiten in the sample may be below the detection limit of the test. Performed By: #### I NFLUAB #### [facility] [address] [place] [address] Dr. Daryn Rosario INFLUBNEGH SEE BELOW Normal [facility] Comment on above: Result Comment: Nega tive for Flu B protein antigen. Infection due to Flu B cannot be ruled out. Flu B antigen in the sample may be below the detection limit of the test. Performed By: #### I NFLUAB #### [facility] [address] [place] [address] Dr. Daryn Rosario INFLUENZA A AG Negative Normal NEGATIVE SEE COMMENT [facility] Comment on above: Performed By: #### I NFLUAB #### [facility] [address] [place] [address] Dr. Daryn Rosario INFLUENZA B AG Negative Normal NEGATIVE SEE COMMENT [facility] Comment on above: Performed By: #### I NFLUAB #### [facility] [address] [place] [address] Dr. Daryn Rosario SYMPTOMATIC COVID-19 ANTIGEN on 10-27-2022 EUA Statement SEE BELOW Normal [facility] Comment on above: Result Comment: This [...] is revoked sooner. Performed By: #### L [facility] #### [facility] [address] [place] [address] [id number] [address] Daryn Rosario SARS-CoV-2 (COVID-19) RNA DOUG+probe Ql (Unsp spec) Negative Normal NEGATIVE [facility] Comment on above: Performed By: #### L [facility] #### [facility] [address] [place] [address] [address] [address] Daryn Rosario US PELVIS AND TRANSVAGon [...] by: BRUNILDA NIEVES Date: 2022-09-08 14:05 Normal [facility] DHEA SERUMon 08-29-2022 Dehydroepiandrosterone (DHEA) 410 ng/dL Normal 31-701 [facility] Comment on above: Result Comment: Age [...] 89 Performed By: #### H CVPCRR #### [facility] [address] [place] [address] Dr. Daryn Rosario DHEA-SULFATEon 08-26-2022 DHEA-Sulfate 226.0 ug/dL Normal 84.8-378.0 [facility] Comment on above: Performed By: #### L BCFS #### [facility] [address] [place] [address] Dr. Daryn Rosario FSHon 08-26-2022 FSH 5.6 mIU/mL Normal [facility] Comment on above: Result Comment: Adul t Female: Follicular phase 3.5 - 12.5 Ovulation phase 4.7 - 21.5 Luteal phase 1.7 - 7.7 Postmenopausal 25.8 - 134.8 Performed By: #### L [facility] #### [facility] [address] [place] [address] Dr. Daryn Rosario LUTEINIZING HORMONE (LH)on 0 08-26-2022 LH 9.6 mIU/mL Normal [facility] Comment on above: Result Comment: Adul t Female: Follicular phase 2.4 - 12.6 Ovulation phase 14.0 - 95.6 Luteal phase 1.0 - 11.4 Postmenopausal 7.7 - 58.5 Performed By: #### H CVPCRR #### [facility] [address] [place] [address] Dr. Daryn Rosario CBC AUTO DIFFon 08-25-2022 BASO # 0.1 103/ul Normal 0.0-0.1 [facility] Comment on above: Performed By: #### C BC #### [facility] [address] [place] [address] Dr. Daryn Rosario Basophils/100 WBC (Bld) 1.2 % Normal 0.2-2.0 [facility] Comment on above: Performed By: #### C BC #### [facility] [address] [place] [address] Dr. Daryn Rosario EO # 0.1 103/ul Normal 0.0-0.7 [facility] Comment on above: Performed By: #### C BC #### [facility] [address] [place] [address] Dr. Daryn Rosario Eosinophils/100 WBC (Bld) 2.0 % Normal 0.9-7.0 [facility] Comment on above: Performed By: #### C BC #### [facility] [address] [place] [address] Dr. Daryn Rosario Erythrocyte distribution width (RBC) [Ratio] 12.2 % Normal 11.0-15.0 [facility] Comment on above: Performed By: #### C BC #### [facility] [address] [place] [address] Dr. Daryn Rosario Hematocrit (Bld) [Volume fraction] 45.0 % Normal 36.0-48.0 [facility] Comment on above: Performed By: #### C BC #### [facility] [address] [place] [address] Dr. Daryn Rosario Hemoglobin (Bld) [Mass/Vol] 14.0 g/dL Normal 12.0-16.0 [facility] Comment on above: Performed By: #### C BC #### [facility] [address] [place] [address] Dr. Daryn Rosario IG # 0.02 10e3/ul Normal 0.00-0.03 [facility] Comment on above: Performed By: #### C BC #### [facility] [address] [place] [address] Dr. Daryn Rosario IG % 0.3 % Normal 0.0-0.5 [facility] Comment on above: Performed By: #### C BC #### [facility] [address] [place] [address] Dr. Daryn Rosario LYMPH # 2.3 103/ul Normal 1.2-3.8 [facility] Comment on above: Performed By: #### C BC #### [facility] [address] [place] [address] Dr. Daryn Rosario Lymphocytes/100 WBC (Bld) 34.6 % Normal 20.5-60.0 [facility] Comment on above: Performed By: #### C BC #### [facility] [address] [place] [address] Dr. Daryn Rosario MANUAL DIFF REQ NO Normal [facility] Comment on above: Performed By: #### C BC #### [facility] [address] [place] [address] Dr. Daryn Rosario MCH (RBC) [Entitic mass] 29.7 pg Normal 26.7-34.0 [facility] Comment on above: Performed By: #### C BC #### [facility] [address] [place] [address] Dr. Daryn Rosario MCHC (RBC) [Mass/Vol] 31.1 g/dL Normal 29.9-35.2 [facility] Comment on above: Performed By: #### C BC #### [facility] [address] [place] [address] Dr. Daryn Rosario MCV (RBC) [Entitic vol] 95.3 fL Normal 81.0-99.0 [facility] Comment on above: Performed By: #### C BC #### [facility] [address] [place] [address] Dr. Daryn Rosario MONO # 0.7 103/ul Normal 0.3-0.8 [facility] Comment on above: Performed By: #### C BC #### [facility] [address] [place] [address] Dr. Daryn Rosario Monocytes/100 WBC (Bld) 10.8 % Normal 1.7-12.0 [facility] Comment on above: Performed By: #### C BC #### [facility] [address] [place] [address] Dr. Daryn Rosario NEUT # 3.4 103/ul Normal 1.4-6.5 [facility] Comment on above: Performed By: #### C BC #### [facility] [address] [place] [address] Dr. Daryn Rosario Neutrophils/100 WBC (Bld) 51.1 % Normal 43.0-75.0 [facility] Comment on above: Performed By: #### C BC #### [facility] [address] [place] [address] Dr. Daryn Rosario Platelet mean volume (Bld) [Entitic vol] 9.6 fL Normal 9.5-13.5 [facility] Comment on above: Performed By: #### C BC #### [facility] [address] [place] [address] Dr. Daryn Rosario PLT 362 103/ul Normal 150-450 [facility] Comment on above: Performed By: #### C BC #### [facility] [address] [place] [address] Dr. Daryn Rosario RBC 4.72 106/ul Normal 4.20-5.40 [facility] Comment on above: Performed By: #### C BC #### [facility] [address] [place] [address] Dr. Daryn Rosario WBC 6.7 103/ul Normal 4.0-11.0 [facility] Comment on above: Performed By: #### C BC #### [facility] [address] [place] [address] Dr. Daryn Rosario FREE T4on 08-25-2022 Free T4 [Mass/Vol] 0.97 ng/dL Normal 0.76-1.46 [facility] Comment on above: Performed By: #### H CVPCRR #### [facility] [address] [place] [address] Dr. Daryn Rosario GLYCOHEMOGLOBIN A1Con 2022 ADA RECOMMENDATION SEE BELOW Normal [facility] Comment on above: Result Comment: ADA RECOMMENDED LIMIT 4.0 - 6.0 ADA THERAPEUTIC TARGET < 7.0 ACTION SUGGESTED > 7.0 Performed By: #### H CVPCRR #### [facility] [address] [place] [address] Dr. Daryn Rosario Glucose [Mass/Vol] 103 mg/dL Normal [facility] Comment on above: Performed By: #### H CVPCRR #### [facility] [address] [place] [address] Dr. Daryn Rosario HbA1c (Bld) [Mass fraction] 5.2 % Normal 4.5-6.2 [facility] Comment on above: Performed By: #### H CVPCRR #### [facility] [address] [place] [address] Dr. Daryn Rosario TSHon 08-25-2022 TSH 1.472 uIU/mL Normal 0.358-3.740 [facility] Comment on above: Performed By: #### T SH #### [facility] [address] [address] [address] Daryn Rosario PAP ACOG PANEL 2: 30 to 65on 08-19-2022 . . Normal [facility] Comment on above: Result Comment: Perf ormed at: WB Performed By: #### H CVPCRR #### [facility] [address] [address] [address] Daryn Rosario Age Gdln ACOG Testing - [facility] Comment on above: Performed By: #### H CVPCRR #### [facility] [address] [place] [address] Dr. Daryn Rosario DIAGNOSIS: Comment Normal [facility] Comment on above: Result Comment: NEGA TIVE FOR INTRAEPITHELIAL LESION OR MALIGNANCY. Performed at: WB Performed By: #### H CVPCRR #### [facility] [address] [address] [address] Daryn Rosario HPV Aptima Negative Normal Negative [facility] Comment on above: Result Comment: This nucleic acid amplification test detects fourteen high-risk HPV types (16,18,31,33,35,39,45,51,52,56,58,59,66,68) without differentiation. Performed at: =G Performed By: #### H CVPCRR #### [facility] [address] [address] [address] Daryn Rosario HPV Genotype Reflex Comment Normal [facility] Comment on above: Result Comment: Crit eria not met, HPV Genotype not performed. Performed at: WB Performed By: #### H CVPCRR #### [facility] [address] [address] [address] Daryn Rosario Methodology: Comment Normal [facility] Comment on above: Result Comment: This liquid based ThinPrep(R) pap test was screened with the use of an image guided system. Performed at: WB Performed By: #### H CVPCRR #### [facility] [address] [address] [address] Daryn Rosario Note: Comment Normal [facility] Comment on above: Result Comment: The [...] WB Performed By: #### H CVPCRR #### [facility] [address] [address] [address] Daryn Rosario Performed by: Comment Normal [facility] [facility] Comment on above: Result Comment: Redd Powell, Stna Performed at: WB Performed By: #### H CVPCRR #### [facility] [address] [address] [address] Daryn Rosario Specimen adequacy: Comment Normal [facility] Comment on above: Result Comment: Sati sfactory for evaluation. Endocervical and/or squamous metaplastic cells (endocervical component) are present. Performed at: WB Performed By: #### H CVPCRR #### [facility] [address] [address] [address] Daryn Rosario COVID Quick Testingon 2020 Result Negative [facility] Other PT - Assessmentson PT - Assessments [id number] 172#1.00CD:127 Normal [facility] PT - Consentson 11-12-2020 PT - Consents [id number] 797#1.00CD:127 Normal [facility] PT - Home Exercise Programon 11-12-2020 PT - Home Exercise Program [id number] 629#1.00CD:127 Normal [facility] PT - Orderson 11-10-2020 PT - Orders [id number] 962#1.00CD:127 Normal [facility] Coding Summary.on 11-09-2020 Coding Summary. CODING DATE: 11/09/2020 FINAL [facility] STATUS: PAYOR: Gil ADMIT DX: REASON FOR [...] CphT Date Saved: 11/09/2020 07:36 pm Normal [facility] Coding Summary. CODING DATE: 11/09/2020 FINAL [facility] STATUS: Home (Routine DC) PAYOR: Gil ADMIT [...] Rojas CphT Date Saved: 11/09/2020 08:07 am [facility] Consenton 11-09-2020 Consent [id number] 236#1.00CD:127 Normal [facility] PT - Orderson 11-09-2020 PT - Orders [id number] 527#1.00CD:127 Normal [facility] PAP [id number] 11-02-2020 C. trachomatis rRNA DOUG+probe Ql (Cvx) Negative Invalid Interpretation Code Negative [facility] Comment on above: Performed By: #### 1 [id number] #### [facility] [address] [place] [id number] Cytology report Cyto stain Doc (Cvx/Vag) Note Invalid Interpretation Code [facility] Comment on above: Result Comment: TEST S RESULT FLAG UNITS REF RANGE LAB Clinician Provided Cytology Information Source.............Endocervix No. of containers..01 ThinPrep Vial DIAGNOSIS: 01 NEGATIVE FOR INTRAEPITHELIAL LESION OR MALIGNANCY. CELLULAR CHANGES ASSOCIATED WITH INFLAMMATION ARE PRESENT. 01 Satisfactory for evaluation. Endocervical and/or squamous metaplastic cells (endocervical component) are present. 01 Jose oGrdon, Stna (ASCP) 01 Note 01 The Pap smear is [...] Low,>-Panic High,A-Abnormal,AA-Critical Abnormal Performed at: 01 WB [facility] [address] [address] Shelbie Chavira MD, Performed By: #### 1 [id number] #### [facility] [address] [place] [address] N. gonorrhoeae rRNA DOUG+probe Ql (Cvx) Negative Invalid Interpretation Code Negative [facility] Comment on above: Performed By: #### 1 [id number] #### [facility] [address] [place] [address] T. vaginalis rRNA DOUG+probe Ql (Unsp spec) Negative Invalid Interpretation Code Negative [facility] Comment on above: Result Comment: Perf ormed at: WB [facility] [place] [address], [place] [id number] MD Cait Morfin Performed at: =G [facility] [place] [address], [place] [id number] MD Cait Morfin Performed By: #### 1 [id number] #### [facility] [address] [place] [address] Ambulatory Clinical Summaryo n 10-27-2020 Ambulatory Clinical Summary {[id number]}CD:35393 8 Normal [facility] Gynecology Office/Clinic Not ortega 10-27-2020 Gynecology Office/Clinic [...] Her Imitrex resolves them for the day [employer] complaints- denies Bowel/Bladder complaints- denies Mood- good, [...] masses. Pap obtained Neurologic: Grossly normal Skin: [place], moist, no tenting Lymph Nodes: No cervical [...] Ordered: Est Preventative 18 to 39 years [id number]/NG/Trich rflx HPV 2. BMI 40.0-44.9, adult (Z68.41: Body mass index [BMI]40.0-44.9, adult) Discussed health risks of obesity Encouraged healthy, balanced diet low in sugar, fat, carbs Encouraged exercise regimen Ordered: Body Mass Index (BMI) documented 3008F Cervical cancer screening results documented and reviewed 3015F Est Preventative 18 to 39 years [address] Most recent diastolic blood pressure <80 mm Hg 3078F Systolic BP <130 mm Hg (Most Recent) 3074F Follow-up With When Contact Information [facility] 1 year [address] [place] [address]- Meal Ticket (1) Additional Instructions: Problem List/Past Medical History Ongoing No qualifying data Historical Procedure/Surgical History Kidney operation (1999), Bladder operation (1997), Eye operation (1997). Medications Tri-Sprintec 35 mcg Tab, 1 tab(s), Oral, Daily, 4 refills Allergies No Known Nik (more content not included)... Normal [facility] Comment on above: Result Comment: Elec tronically Signed By: Purvi PANDYA CNP\gamal\Date and Time Signed: 10/27/20 10:27 EDT PAP [id number] 10-27-2020 Gynecological Body Site ENDOCERVIX Normal F [facility] Comment on above: Performed By: #### 1 [id number] #### [facility] [address] [place] [address] Patient Educationon 10-28-19 Patient Education Exercise to [...] Document Reviewed: 08/19/2011 ExitCare? Patient Information ?2013 [employer] Normal [facility] Vital Signs Date Time Vital Sign Value Performing Clinician Facility 07-15-2021 11:00-0500 Body height 154.94 cm Mami Ahmadi Other [facility] Other 07-15-2021 11:00-0500 Body mass index (BMI) [Ratio] 49.69 kg/m2 Mami Ahmadi Other [facility] Other 07-15-2021 11:00-0500 Body temperature 96.2 [degF] Mami Ahmadi Other [facility] Other 07-15-2021 11:00-0500 Body weight 119.3 kg Mami Ahmadi Other [facility] Other 07-15-2021 11:00-0500 Respiratory rate 18 /min Mami Ahmadi Other [facility] Other 07-15-2021 11:00-0500 SaO2% (BldA) [Mass fraction] 98 % Mami Ahmadi Other [facility] Other Encounters Encounter Date Encounter Type Care Provider Facility Start: 08-29-2023 End: 08-29-2023 ambulatory [facility] Not Available Start: 07-19-2023 End: 07-19-2023 ambulatory [facility] Not Available Start: 11-04-2022 End: 11-05-2022 ambulatory [...] 07-15-2021 End: 07-15-2021 ambulatory Mami Ahmadi Other [facility] Other Start: 07-15-2021 Office outpatient visit 15 minutes Mami Ahmadi [facility] Payers Date Payer Category Payer Unknown [id number] 2.16.84 [id number] 1990 Unknown [id number] 2.16.84 [id number] 1988 Unknown [id number] 2.16.84 0.1.948805.3.579.2.593 1988 Unknown [id number] 2.16.84 0.1.221779.3.579.2.593 1988 Unknown [id number] 2.16.84 0.1.228968.3.579.2.593 1988 Unknown [id number] 2.16.84 0.1.472781.3.579.2.593 1988 Unknown [id number] 2.16.84 0.1.338230.3.579.2.593 1988 Unknown [id number] 2.16.84 0.1.411888.3.579.2.593 1988 Unknown [id number] 2.16.84 0.1.360739.3.579.2.1259 1988 Unknown [id number] 2.16.840 .[id number] 1961 [facility] [place] [facility] [id number] 1961 Unknown Social History Date Type Detail Facility Unknown if ever smoked [facility] Other Sex Assigned At Sex Assigned At Bir th [facility] Other Clinical Note 05-24-2022 Note Date & [...] authenticated by: BRUNILDA NIEVES Date: 2022-05-24 16:57 [facility] Clinical Note 05-24-2022 Note Date & Type [...] authenticated by: BRUNILDA NIEVES Date: 2022-05-24 16:57 [facility] Clinical Note 05-16-2022 Note Date & Type [...] authenticated by: BRUNILDA NIEVES Date: 2022-05-16 12:40 [facility] Evaluation note 07-15-2021 Note Date & Type [...] Patient care instructions given in writting by [facility] At Home document. [facility] Other History general Narrative - Reported Note Date & Type Note Facility History general Narrative - Reported Type Medical History migraine headache Surgical History eyes Surgical History bladder surgery Hospitalization History see above [facility] Other Summary Purpose Family History No Family History Records FoundNo Family History Records FoundNo Family History Records Found Advance Directives No Advanced Directives Records FoundNo Advanced Directives Records FoundNo Advanced Directives Records Found Additional Source Comments INFORMATION SOURCE (unrecogn ized section and content) DATE CREATED AUTHOR [facility]04/2021 [facility] DATE CREATED AUTHOR AUTHOR'S ORGANIZ ATION 11/07/2022 [facility] DATE CREATED AUTHOR AUTHOR'S ORGANIZ ATION 08/30/2023 [facility] REASON FOR VISIT (unrecogniz ed section and [...] BE BASED ON THE PRIMARY CLINICAL RECORDS. [facility] [employer] [facility]. provides no warranty or guarantee of the accuracy or completeness of information in this document.
== END 2024-01-25 13:14 | disposition home or self-care (01) ==
LOC: EC 13:13
PROVIDERS: Visit Provider Physician Assistant
DX: M79.672 Pain in left foot (principal); M77.32 Calcaneal spur, left foot
CPT/HCPCS: 73630

== ENCOUNTER 2024-07-11 12:00 | Outpatient (OUT) | payer BC, SELFPAY ==
--- NOTE | 2024-07-11 12:05 | XR_ITS ---
The [address] [address] Patient Name: NATAN NOLEN MRN: [id number] date: 1990 Sex: F Assigned Patient Location: [facility] Current Patient Location: RAD Accession/Order Number: [id number] Exam Date: 07/11/2024 12:13 Report Date: 07/11/2024 16:03 At the request of: ALISIA SHEPHERD Procedure: XR chest 2V PROCEDURE: XR chest 2V DATE: 07/11/2024 12:13 PM EST COMPARISONS: None. CLINICAL INDICATION: 34 years Female Acute bronchitis, J20.9 FINDINGS: The cardiomediastinal silhouette and pulmonary vasculature are within normal limits. The lungs are clear. There is no evidence of pleural effusion or pneumothorax. XR/XR chest 2V IMPRESSION: Chest radiograph is within normal limits. Electronically authenticated by: SHANTE RICHARDSON Date: 07/11/2024 16:03
--- OUTSIDE RECORDS SUMMARY | 2024-07-11 12:18 | XMS_ITS | CCD ---
Author Organization [facility] Care Team Providers Care Dispute Resolution Analyst Name Role Phone Mami Ahmadi Unavailable MATTHEW, [...] HOLDEN Consulting Unavailable EMMA HUTTON Attending Unavailable EVERARDO ADEN Attending Unavailable NEIL AGUILAR Referring Unavailable EMMA HUTTON Attending Unavailable Medications Current Medications Medication Drug Class(es) Dates Sig (Normalized) Sig (Original) [id number] 200 actuat albuterol 0.09 mg/actuat metered dose [...] HBsAg Screen Negative Normal Negative [facility] Comment on above: Performed By: #### H CVPCRR #### [facility] [address] [place] [address] Dr. Daryn Rosario HEPATITIS C VIRUS AB W/ REFL EX QUANTon 11-05-2022 HCV AB Non-Reactive Normal Non Reactive [facility] Comment on above: Performed By: #### H CVPCRR #### [facility] [address] [place] [address] Dr. Daryn Rosario Interpretation: Comment Normal [facility] Comment on above: Result Comment: Not infected with HCV unless early or acute infection is suspected (which may be delayed in an immunocompromised individual), or other evidence exists to indicate HCV infection. Performed By: #### H CVPCRR #### [facility] [address] [place] [address] Dr. Daryn Rosario HIV 1 AND 2 WITH REFLEXon HIV Screen 4th Generation wRfx Non-Reactive Normal Non Reactive [facility] Comment on above: Result Comment: HIV Negative HIV-1/HIV-2 antibodies and HIV-1 p24 antigen were NOT detected. There is no laboratory evidence of HIV infection. Performed By: #### H IV12 #### [facility] [address] [place] [address] Dr. Daryn Rosario RPR QUANTon 11-05-2022 Rapid Plasma Reagin, Quant Non-Reactive Normal NonRea<1:1 [facility] Comment on above: Result Comment: Plea se Note: This test does not meet current guidelines for screening and diagnosis of syphilis. This test is intended for following treatment response in patients being treated for syphilis infection. To screen for syphilis infection, a reflex cascade that includes both RPR and a treponema-specific assay should be utilized, such as Treponema pallidum (Syphilis) Screening [place] (855747) or Rapid Plasma Reagin (RPR) Test With Reflex to Quantitative RPR and Confirmatory Treponema pallidum Antibodies (633117). Performed By: #### R PRQ #### [facility] [address] [place] [address] Dr. Daryn Rosario RUBELLA AB IGGon 11-05-2022 Rubella Antibodies, IgG 12.70 index Normal Immu ne >0.[address] [facility] Comment on above: Result Comment: Non- immune <0.90 Equivocal 0.90 - 0.99 Immune >0.99 Performed By: #### R UBIGG #### [facility] [address] [place] [address] Dr. Daryn Rosario BOX TEST SENT OUTon 11-05-19 23 SENT TO REF LAB 11/04/2022 Normal [facility] Comment on above: Performed By: #### H CVPCRR #### [facility] [address] [place] [address] Dr. Daryn Rosario CBC AUTO DIFFon 11-04-2022 BASO # 0.0 103/ul Normal 0.0-0.[address] [facility] Comment on above: Performed By: #### H CVPCRR #### [facility] [address] [place] [address] Dr. Daryn Rosario Basophils/100 WBC (Bld) 0.4 % Normal 0.2-2.0 [facility] Comment on above: Performed By: #### H CVPCRR #### [facility] [address] [place] [address] Dr. Daryn Rosario EO # 0.1 103/ul Normal 0.0-0.[address] [facility] Comment on above: Performed By: #### H CVPCRR #### [facility] [address] [place] [address] Dr. Daryn Rosario Eosinophils/100 WBC (Bld) 1.4 % Normal 0.9-7.[address] [facility] Comment on above: Performed By: #### H CVPCRR #### [facility] [address] [place] [address] Dr. Daryn Rosario Erythrocyte distribution width (RBC) [Ratio] 12.4 % Normal 11.0-15.[address] [facility] Comment on above: Performed By: #### H CVPCRR #### [facility] [address] [place] [address] Dr. Daryn Rosario Hematocrit (Bld) [Volume fraction] 38.5 % Normal 36.0-48.[address] [facility] Comment on above: Performed By: #### H CVPCRR #### [facility] [address] [place] [address] Dr. Daryn Rosario Hemoglobin (Bld) [Mass/Vol] 13.3 g/dL Normal 12.0-16.[address] [facility] Comment on above: Performed By: #### H CVPCRR #### [facility] [address] [place] [address] Dr. Daryn Rosario IG # 0.03 10e3/ul Normal 0.00-0.[address] [facility] Comment on above: Performed By: #### H CVPCRR #### [facility] [address] [place] [address] Dr. Daryn Rosario IG % 0.4 % Normal 0.0-0.[address] [facility] Comment on above: Performed By: #### H CVPCRR #### [facility] [address] [place] [address] Dr. Daryn Rosario LYMPH # 1.9 103/ul Normal 1.2-3.[address] [facility] Comment on above: Performed By: #### H CVPCRR #### [facility] [address] [place] [address] Dr. Daryn Rosario Lymphocytes/100 WBC (Bld) 23.2 % Normal 20.5-60.[address] [facility] Comment on above: Performed By: #### H CVPCRR #### [facility] [address] [place] [address] Dr. Daryn Rosario MANUAL DIFF REQ NO Normal [facility] Comment on above: Performed By: #### H CVPCRR #### [facility] [address] [place] [address] Dr. Daryn Rosario MCH (RBC) [Entitic mass] 30.5 pg Normal 26.7-34.[address] [facility] Comment on above: Performed By: #### H CVPCRR #### [facility] [address] [place] [address] Dr. Daryn Rosario MCHC (RBC) [Mass/Vol] 34.5 g/dL Normal 29.9-35.[address] [facility] Comment on above: Performed By: #### H CVPCRR #### [facility] [address] [place] [address] Dr. Daryn Rosario MCV (RBC) [Entitic vol] 88.3 fL Normal 81.0-99.0 [facility] Comment on above: Performed By: #### H CVPCRR #### [facility] [address] [place] [address] Dr. Daryn Rosario MONO # 0.7 103/ul Normal 0.3-0.[address] [facility] Comment on above: Performed By: #### H CVPCRR #### [facility] [address] [place] [address] Dr. Daryn Rosario Monocytes/100 WBC (Bld) 8.4 % Normal 1.7-12.0 [facility] Comment on above: Performed By: #### H CVPCRR #### [facility] [address] [place] [address] Dr. Daryn Rosario NEUT # 5.4 103/ul Normal 1.4-6.[address] [facility] Comment on above: Performed By: #### H CVPCRR #### [facility] [address] [place] [address] Dr. Daryn Rosario Neutrophils/100 WBC (Bld) 66.2 % Normal 43.0-75.[address] [facility] Comment on above: Performed By: #### H CVPCRR #### [facility] [address] [place] [address] Dr. Daryn Rosario Platelet mean volume (Bld) [Entitic vol] 9.4 fL Critically low 9.5-13.[address] [facility] Comment on above: Performed By: #### H CVPCRR #### [facility] [address] [place] [address] Dr. Daryn Rosario PLT 347 103/ul Normal 150-[address] [facility] Comment on above: Performed By: #### H CVPCRR #### [facility] [address] [place] [address] Dr. Daryn Rosario RBC 4.36 106/ul Normal 4.20-5.[address] [facility] Comment on above: Performed By: #### H CVPCRR #### [facility] [address] [place] [address] Dr. Daryn Rosario WBC 8.1 103/ul Normal 4.0-11.[address] [facility] Comment on above: Performed By: #### H CVPCRR #### [facility] [address] [place] [address] Dr. Daryn Rosario CULTURE URINEon 11-04-2022 CULTURE URINE Culture Observations: LIGHT GROWTH OF MIXED GENITAL KARTHIKEYAN. NO POTENTIAL PATHOGENS SEEN. Normal [facility] Comment on above: Performed By: #### L BCFSH #### [facility] [address] [place] [address] Dr. Daryn Rosario GLYCOHEMOGLOBIN A1Con 2022 ADA RECOMMENDATION SEE BELOW Normal [facility] Comment on above: Result Comment: ADA RECOMMENDED LIMIT 4.0 - 6.0 ADA THERAPEUTIC TARGET < 7.0 ACTION SUGGESTED > 7.0 Performed By: #### A 1C #### [facility] [address] [place] [address] Dr. Daryn Rosario Glucose [Mass/Vol] 97 mg/dL Normal [facility] Comment on above: Performed By: #### A 1C #### [facility] [address] [place] [address] Dr. Daryn Rosario HbA1c (Bld) [Mass fraction] 5.0 % Normal 4.5-6.[address] [facility] Comment on above: Performed By: #### A 1C #### [facility] [address] [place] [address] Dr. Daryn Roasrio TSHon 11-04-2022 TSH 1.102 uIU/mL Normal 0.358-3.740 [facility] Comment on above: Performed By: #### T SH #### [facility] [address] [place], [place] [address] Dr. Daryn Rosario TYPE AND SCREENon 11-04-2022 TYPE AND SCREEN Negative Normal [facility] Comment on above: Performed By: #### L [facility] #### [facility] [address] [place], [place] [address] Dr. Daryn Rosario US PREG TVon 11-04-2022 [...] SUSAN YEAGER Date: 2022-11-04 10:32 Normal [facility] Covid-19 PCR (CVDTB)on 09-30 SARS-CoV-2 (COVID-19) RNA DOUG+probe Ql (Unsp spec) Not detected Normal NOT DETECTED [facility] Comment on above: Result Comment: This test is not yet approved or cleared by the [place] FDA. When there are no FDA-approved or cleared tests available, and other criteria are met, FDA can make tests available under an emergency access mechanism called an Emergency Use Authorization (EUA). The EUA for this test is supported by the [place] of Health and Human Service's (HHS's) declaration [...] SARS-CoV-2. Performed By: #### L BCFSH #### [facility] [address] [place] [address] Dr. Daryn Rosario INFLUENZA A AND B AGon 10-27 INFLUANEGH SEE BELOW Normal [facility] Comment on above: Result Comment: Nega tive for Flu A protein angiten. Infection due to Flu A cannot be ruled out. Flu A angiten in the sample may be below the detection limit of the test. Performed By: #### I NFLUAB #### [facility] [address] [place] [address] Dr. D[facility] SEE BELOW Normal [facility] Comment on above: Result Comment: Nega tive for Flu B protein antigen. Infection due to Flu B cannot be ruled out. Flu B antigen in the sample may be below the detection limit of the test. Performed By: #### I NFLUAB #### [facility] [address] [place] [address] Dr. Daryn Rosario INFLUENZA A AG Negative Normal NEGATIVE SEE COMMENT [facility] Comment on above: Performed By: #### I NFLUAB #### [facility] [address] [place] [address] Dr. Daryn Rosario INFLUENZA B AG Negative Normal NEGATIVE SEE COMMENT [facility] Comment on above: Performed By: #### I NFLUAB #### [facility] [address] [place] [address] Dr. Daryn Rosario SYMPTOMATIC COVID-19 ANTIGEN on 10-27-2022 EUA Statement SEE BELOW Normal [facility] Comment on above: Result Comment: This test [...] is revoked sooner. Performed By: #### L [facility] #### [facility] [address] [place] [address] [id number] [address] Daryn Rosario SARS-CoV-2 (COVID-19) RNA DOUG+probe Ql (Unsp spec) Negative Normal NEGATIVE [facility] Comment on above: Performed By: #### L [facility] #### [facility] [address] [place], [place] [address] Dr. Daryn Rosario US PELVIS AND TRANSVAGon [...] NIEVES Date: 2022-09-08 14:[address] [facility] DHEA SERUMon 08-29-2022 Dehydroepiandrosterone (DHEA) 410 ng/dL Normal [facility] Comment on above: Result Comment: Age [...] 89 Performed By: #### H CVPCRR #### [facility] [address] [place] [address] Dr. Daryn Rosario DHEA-SULFATEon 08-26-2022 DHEA-Sulfate 226.0 ug/dL Normal 84.8-378.0 [facility] Comment on above: Performed By: #### L BCFSH #### [facility] [address] [place] [address] Dr. Daryn Rosario FSHon 08-26-2022 FSH 5.6 mIU/mL Normal [facility] Comment on above: Result Comment: Adul t Female: Follicular phase 3.5 - 12.5 Ovulation phase 4.7 - 21.5 Luteal phase 1.7 - 7.7 Postmenopausal 25.8 - 134.8 Performed By: #### L BCFSH #### [facility] [address] [place] [address] Dr. Daryn Rosario LUTEINIZING HORMONE (LH)on 0 08-26-2022 LH 9.6 mIU/mL Normal [facility] Comment on above: Result Comment: Adul t Female: Follicular phase 2.4 - 12.6 Ovulation phase 14.0 - 95.6 Luteal phase 1.0 - 11.4 Postmenopausal 7.7 - 58.5 Performed By: #### H CVPCRR #### [facility] [address] [place] [address] Dr. Daryn Rosario CBC AUTO DIFFon 08-25-2022 BASO # 0.1 103/ul Normal 0.0-0.[address] [facility] Comment on above: Performed By: #### C BC #### [facility] [address] [place] [address] Dr. Daryn Rosario Basophils/100 WBC (Bld) 1.2 % Normal 0.2-2.0 [facility] Comment on above: Performed By: #### C BC #### [facility] [address] [place] [address] Dr. Daryn Rosario EO # 0.1 103/ul Normal 0.0-0.[address] [facility] Comment on above: Performed By: #### C BC #### [facility] [address] [place] [address] Dr. Daryn Rosario Eosinophils/100 WBC (Bld) 2.0 % Normal 0.9-7.0 [facility] Comment on above: Performed By: #### C BC #### [facility] [address] [place] [address] Dr. Daryn Rosario Erythrocyte distribution width (RBC) [Ratio] 12.2 % Normal 11.0-15.[address] [facility] Comment on above: Performed By: #### C BC #### [facility] [address] [place] [address] Dr. Daryn Rosario Hematocrit (Bld) [Volume fraction] 45.0 % Normal 36.0-48.[address] [facility] Comment on above: Performed By: #### C BC #### [facility] [address] [place] [address] Dr. Daryn Rosario Hemoglobin (Bld) [Mass/Vol] 14.0 g/dL Normal 12.0-16.0 [facility] Comment on above: Performed By: #### C BC #### [facility] [address] [place] [address] Dr. Daryn Rosario IG # 0.02 10e3/ul Normal 0.00-0.03 [facility] Comment on above: Performed By: #### C BC #### [facility] [address] [place] [address] Dr. Daryn Rosario IG % 0.3 % Normal 0.0-0.5 [facility] Comment on above: Performed By: #### C BC #### [facility] [address] [place] [address] Dr. Daryn Rosario LYMPH # 2.3 103/ul Normal 1.2-3.8 [facility] Comment on above: Performed By: #### C BC #### [facility] [address] [place] [address] Dr. Daryn Rosario Lymphocytes/100 WBC (Bld) 34.6 % Normal 20.5-60.[address] [facility] Comment on above: Performed By: #### C BC #### [facility] [address] [place] [address] Dr. Daryn Rosario MANUAL DIFF REQ NO Normal [facility] Comment on above: Performed By: #### C BC #### [facility] [address] [place] [address] Dr. Daryn Rosario MCH (RBC) [Entitic mass] 29.7 pg Normal 26.7-34.[address] [facility] Comment on above: Performed By: #### C BC #### [facility] [address] [place] [address] Dr. Daryn Rosario MCHC (RBC) [Mass/Vol] 31.1 g/dL Normal 29.9-35.[address] [facility] Comment on above: Performed By: #### C BC #### [facility] [address] [place] [address] Dr. Daryn Rosario MCV (RBC) [Entitic vol] 95.3 fL Normal 81.0-99.0 [facility] Comment on above: Performed By: #### C BC #### [facility] [address] [place] [address] Dr. Daryn Rosario MONO # 0.7 103/ul Normal 0.3-0.[address] [facility] Comment on above: Performed By: #### C BC #### [facility] [address] [place] [address] Dr. Daryn Rosario Monocytes/100 WBC (Bld) 10.8 % Normal 1.7-12.0 [facility] Comment on above: Performed By: #### C BC #### [facility] [address] [place] [address] Dr. Daryn Rosario NEUT # 3.4 103/ul Normal 1.4-6.[address] [facility] Comment on above: Performed By: #### C BC #### [facility] [address] [place] [address] Dr. Daryn Rosario Neutrophils/100 WBC (Bld) 51.1 % Normal 43.0-75.[address] [facility] Comment on above: Performed By: #### C BC #### [facility] [address] [place] [address] Dr. Daryn Rosario Platelet mean volume (Bld) [Entitic vol] 9.6 fL Normal 9.5-13.[address] [facility] Comment on above: Performed By: #### C BC #### [facility] [address] [place] [address] Dr. Daryn Rosario PLT 362 103/ul Normal 150-450 [facility] Comment on above: Performed By: #### C BC #### [facility] [address] [place] [address] Dr. Daryn Rosario RBC 4.72 106/ul Normal 4.20-5.[address] [facility] Comment on above: Performed By: #### C BC #### [facility] [address] [place] [address] Dr. Daryn Rosario WBC 6.7 103/ul Normal 4.0-11.[address] [facility] Comment on above: Performed By: #### C BC #### [facility] [address] [place] [address] Dr. Daryn Rosario FREE T4on 08-25-2022 Free T4 [Mass/Vol] 0.97 ng/dL Normal 0.76-1.46 [facility] Comment on above: Performed By: #### H CVPCRR #### [facility] [address] [place] [address] Dr. Daryn Rosario GLYCOHEMOGLOBIN A1Con 2022 ADA RECOMMENDATION SEE BELOW Normal [facility] Comment on above: Result Comment: ADA RECOMMENDED LIMIT 4.0 - 6.0 ADA THERAPEUTIC TARGET < 7.0 ACTION SUGGESTED > 7.0 Performed By: #### H CVPCRR #### [facility] [address] [place] [address] Dr. Daryn Rosario Glucose [Mass/Vol] 103 mg/dL Normal [facility] Comment on above: Performed By: #### H CVPCRR #### [facility] [address] [place] [address] Dr. Daryn Rosario HbA1c (Bld) [Mass fraction] 5.2 % Normal 4.5-6.[address] [facility] Comment on above: Performed By: #### H CVPCRR #### [facility] [address] [place] [address] [address] Daryn Rosario TSHon 08-25-2022 TSH 1.472 uIU/mL Normal 0.358-3.740 [facility] Comment on above: Performed By: #### T SH #### [facility] [address] [place] [address] [address] Daryn Rosario PAP ACOG PANEL 2: 30 to 65on 08-19-2022 . . Normal [facility] Comment on above: Result Comment: Perf ormed at: WB Performed By: #### H CVPCRR #### [facility] [address] [address] [address] Daryn Rosario Age Gdln ACOG Testing [facility] Comment on above: Performed By: #### H CVPCRR #### [facility] [address] [place] [address] Dr. Daryn Rosario DIAGNOSIS: Comment Normal [facility] Comment on above: Result Comment: NEGA TIVE FOR INTRAEPITHELIAL LESION OR MALIGNANCY. Performed at: WB Performed By: #### H CVPCRR #### [facility] [address] [address] [address] Daryn Rosario HPV Aptima Negative Normal Negative [facility] Comment on above: Result Comment: This nucleic acid amplification test detects fourteen high-risk HPV types (16,18,31,33,35,39,45,51,52,56,58,59,66,68) without differentiation. Performed at: =G Performed By: #### H CVPCRR #### [facility] [address] [address] [address] Daryn Rosario HPV Genotype Reflex Comment Normal [facility] Comment on above: Result Comment: Crit eria not met, HPV Genotype not performed. Performed at: WB Performed By: #### H CVPCRR #### [facility] [address] [address] [address] Daryn Rosario Methodology: Comment Normal [facility] Comment on above: Result Comment: This liquid based ThinPrep(R) pap test was screened with the use of an image guided system. Performed at: WB Performed By: #### H CVPCRR #### [facility] [address] [address] [address] Daryn Rosario Note: Comment Normal [facility] Comment on above: Result Comment: The [...] WB Performed By: #### H CVPCRR #### [facility] [address] [address] [address] Daryn Rosario Performed by: Comment Normal [facility] Comment on above: Result Comment: Redd Powell, Solar Energy Systems Designer Performed at: WB Performed By: #### H CVPCRR #### [facility] [address] [place] [address] Dr. Daryn Rosario Specimen adequacy: Comment Normal [facility] Comment on above: Result Comment: Sati sfactory for evaluation. Endocervical and/or squamous metaplastic cells (endocervical component) are present. Performed at: WB Performed By: #### H CVPCRR #### [facility] [address] [address] [address] Daryn Rosario COVID Quick Testingon 2020 Result Negative [employer] Other PT - Assessmentson PT - Assessments .[id number] 172#1.00CD:127 Normal [facility] PT - Consentson 11-12-2020 PT - Consents [id number] 797#1.00CD:127 Normal [facility] PT - Home Exercise Programon 11-12-2020 PT - Home Exercise Program [id number] 629#1.00CD:127 Normal [facility] PT - Orderson 11-10-2020 PT - Orders [id number] 962#1.00CD:127 Normal [facility] Coding Summary.on 11-09-2020 Coding Summary. CODING DATE: 11/09/2020 FINAL [facility] STATUS: PAYOR: Gil ADMIT DX: REASON [...] Rojas CphT Date Saved: 11/09/2020 07:36 pm [facility] Coding Summary. CODING DATE: 11/09/2020 FINAL [facility] STATUS: Home (Routine DC) PAYOR: Gil ADMIT [...] CphT Date Saved: 11/09/2020 08:07 am Normal [facility] Consenton 11-09-2020 Consent [id number] 236#1.00CD:127 Normal [facility] PT - Orderson 11-09-2020 PT - Orders [id number] 527#1.00CD:127 Normal [facility] PAP [id number] 11-02-2020 C. trachomatis rRNA DOUG+probe Ql (Cvx) Negative Invalid Interpretation Code Negative [facility] Comment on above: Performed By: #### 1 [id number] #### [facility] [address] [place] [address] Cytology report Cyto stain Doc (Cvx/Vag) Note Invalid Interpretation Code [facility] Comment on above: Result Comment: TEST S RESULT FLAG UNITS REF RANGE LAB Clinician Provided Cytology Information Source.............[employer] No. of containers..01 ThinPrep Vial DIAGNOSIS: 01 NEGATIVE FOR INTRAEPITHELIAL LESION OR MALIGNANCY. CELLULAR CHANGES ASSOCIATED WITH INFLAMMATION ARE PRESENT. 01 Satisfactory for evaluation. Endocervical and/or squamous metaplastic cells (endocervical component) are present. 01 Jose Gordon, Solar Energy Systems Designer (ASCP) 01 Note 01 The Pap smear [...] High,A-Abnormal,AA-Critical Abnormal Performed at: 01 WB [facility] [address] [address] Shelbie Chavira MD, Performed By: #### 1 [id number] #### [facility] [address] [place] [address] [place] [address] N. gonorrhoeae rRNA DOUG+probe Ql (Cvx) Negative Invalid Interpretation Code Negative [facility] Comment on above: Performed By: #### 1 [id number] #### [facility] [address] [place] [address] T. vaginalis rRNA DOUG+probe Ql (Unsp spec) Negative Invalid Interpretation Code Negative [facility] Comment on above: Result Comment: Perf ormed at: WB [facility] [place], [place] [id number] MD Cait Morfin Performed at: =G [facility] [address] [place], [place] [id number] MD Cait Morfin Performed By: #### 1 [id number] #### [facility] [address] [place] [address] Ambulatory Clinical Summaryo n 10-27-2020 Ambulatory Clinical Summary {[id number]}CD:[id number] Normal [facility] Gynecology Office/Clinic Not ortega 10-27-2020 Gynecology Office/Clinic [...] Her Imitrex resolves them for the day CERTIFIED ANESTHESIOLOGIST ASSISTANT complaints- denies Bowel/Bladder complaints- denies Mood- good, [...] masses. Pap obtained Neurologic: Grossly normal Skin: [place], moist, no tenting Lymph Nodes: No cervical [...] Ordered: Est Preventative 18 to 39 years [id number]/NG/Trich rflx HPV 2. BMI 40.0-44.9, adult (Z68.41: Body mass index [BMI]40.0-44.9, adult) Discussed health risks of obesity Encouraged healthy, balanced diet low in sugar, fat, carbs Encouraged exercise regimen Ordered: Body Mass Index (BMI) documented 3008F Cervical cancer screening results documented and reviewed 3015F Est Preventative 18 to 39 years [address] Most recent diastolic blood pressure <80 mm Hg 3078F Systolic BP <130 mm Hg (Most Recent) 3074F Follow-up With When Contact Information [facility] In 1 year [address] [place] [address]- Business (1) Additional Instructions: Problem List/Past Medical History Ongoing No qualifying data Historical Procedure/Surgical History Kidney operation (1999), Bladder operation (1997), Eye operation (1997). Medications Tri-Sprintec 35 mcg Tab, 1 tab(s), Oral, Daily, 4 refills Allergies No Known Nik (more content not included)... Normal [facility] Comment on above: Result Comment: Elec tronically Signed By: Purvi PANDYA CNP\Date and Time Signed: 10/27/20 10:27 EDT PAP [id number] 10-27-2020 Gynecological Body Site ENDOCERVIX Normal [facility] Comment on above: Performed By: #### 1 [id number] #### [facility] [address] [place] [address] Patient Educationon 10-28-19 Patient Education Exercise to [...] Document Reviewed: 08/19/2011 ExitCare? Patient Information ?2013 [employer] Normal [facility] Vital Signs Date Time Vital Sign Value Performing Clinician Facility 07-15-2021 11:00-0500 Body height 154.94 cm Mami Ahmadi Other [facility] Other 07-15-2021 11:00-0500 Body mass index (BMI) [Ratio] 49.69 kg/m2 Mami Ahmadi Other [facility] [facility] Other 07-15-2021 11:00-0500 Body temperature 96.2 [degF] Mami Ahmadi Other [facility] Other 07-15-2021 11:00-0500 Body weight 119.3 kg Mami Ahmadi Other [facility] [facility] Other 07-15-2021 11:00-0500 Respiratory rate 18 /min Mami Ahmadi Other [facility] Other 07-15-2021 11:00-0500 SaO2% (BldA) [Mass fraction] 98 % Mami Ahmadi Other [facility] Other Encounters Encounter Date Encounter Type Care Provider Facility Start: 03-27-2024 End: 03-27-2024 ambulatory EVERARDO ADEN Not Available Start: 08-29-2023 End: 08-29-2023 ambulatory EMMA HUTTON Not Available Start: 07-19-2023 End: 07-19-2023 ambulatory EMMA HUTTON Not Available Start: 11-04-2022 End: 11-05-2022 ambulatory ESME MATTHEW Facility:[facility] Start: 11-04-2022 End: 11-05-2022 ambulatory ESME MATTHEW Facility:[facility] Start: 10-27-2022 End: 10-27-2022 ambulatory ESME MATTHEW Facility:[facility] Start: 09-08-2022 End: 09-09-2022 ambulatory ESME MATTHEW Facility:[facility] Start: 08-25-2022 End: 08-26-2022 ambulatory ESME MATTHEW Facility:[facility] Start: 08-15-2022 End: 01-16-2023 ambulatory ESME MATTHEW Facility:[facility] Start: 05-24-2022 End: 05-25-2022 ambulatory JERROD MILAD Facility:[facility] Start: 05-16-2022 End: 05-16-[address] NAVIN JIMÉNEZ . Facility:[facility] Start: 07-15-2021 End: 07-15-2021 ambulatory Mami Zamoraault Other [employer] Other Start: 07-15-2021 Office outpatient visit 15 minutes Mami Ahmadi [facility] [place] Payers Date Payer Category Payer Unknown [id number] 2.16.84 [id number] 1988 Unknown [id number] 2.16.84 [id number] 1988 Unknown [id number] 2.16.84 [id number] 1988 Unknown [id number] 2.16.84 [id number] 1988 Unknown [id number] 2.16.84 [id number] 1988 Unknown [id number] 2.16.84 [id number] 1988 Unknown [id number] 2.16.84 [id number] 1988 Unknown [id number] 2.16.84 [id number] 1988 Unknown [id number] 2.16.84 [id number] 1988 Unknown [id number] 2.16.84 0.1.438026.3.579.2.1259 1988 Unknown [id number] 2.16.840 .[id number] 1961 Rust [id number] [id number] 1959 Unknown Social History Date Type Detail Facility Unknown if ever smoked [employer] Other Sex Assigned At Sex Assigned At Bir th [employer] Other Clinical Note 05-24-2022 Note Date & [...] by: BRUNILDA NIEVES Date: 2022-05-24 16:57 [facility] Clinical Note 05-24-2022 Note Date & [...] by: BRUNILDA NIEVES Date: 2022-05-24 16:57 [facility] Clinical Note 05-16-2022 Note Date & [...] by: BRUNILDA NIEVES Date: 2022-05-16 12:40 [facility] Evaluation note 07-15-2021 Note Date & [...] Patient care instructions given in writting by [facility] Care At Home document. [employer] Other History general Narrative - Reported Note Date & Type Note Facility History general Narrative - Reported Type Medical History migraine headache Surgical History eyes Surgical History bladder surgery Hospitalization History see above [employer] Other Summary Purpose Family History No Family History Records FoundNo Family History Records FoundNo Family History Records Found Advance Directives No Advanced Directives Records FoundNo Advanced Directives Records FoundNo Advanced Directives Records Found Additional Source Comments INFORMATION SOURCE (unrecogn ized section and content) DATE CREATED AUTHOR 02/04/2021 iRc Azubu [facility] DATE CREATED AUTHOR AUTHOR'S ORGANIZ ATION 11/07/2022 [facility] DATE CREATED AUTHOR AUTHOR'S ORGANIZ ATION 03/29/2024 [facility] REASON FOR VISIT (unrecogniz ed section and [...] BE BASED ON THE PRIMARY CLINICAL RECORDS. [facility], [facility]. provides no warranty or guarantee of the accuracy or completeness of information in this document.
== END 2024-07-11 12:01 | disposition home or self-care (01) ==
LOC: RAD 12:02
PROVIDERS: PCP Family Medicine; Visit Provider Family Medicine
DX: J20.9 Acute bronchitis, unspecified (principal)
CPT/HCPCS: 71046

== ENCOUNTER 2024-07-17 16:14 | Emergency (ER) | payer OTHER, BC, SELFPAY ==
[2024-07-17 16:19] VITALS: BP 143/68; PULSE 91; TEMP 36.3; O2SAT 100; BMI 43.1
--- NOTE | 2024-07-17 16:26 | ED.LOWEXI1 ---
HPI HPI - Extremity Injury (Lower) General Chief Complaint: Extremity Injury, Lower Stated Complaint: left foot pain, fell at work Time Seen by Provider: 07/17/24 16:16 Source: patient Mode of arrival: walk-in History of Present Illness HPI Narrative: Patient is a 34-year-old female who presents to the emergency department for evaluation of left foot pain. She states 3 days ago she fell down approximately 12 stairs at work and struck the strauss on either side while she fell. She states she landed on her back. She denies head injury, loss of consciousness. She states she feels sore throughout her back, but her primary area of injury is the left foot, dorsal aspect. She did sustain a small area of bruising and abrasion to the right anterior knee but states it is not bothering her. She is not concerned for . No medications prior to arrival. Related Data Home Medications ?Medication ?Instructions ?Recorded ?Confirmed omeprazole 20 mg capsule,delayed mg 06/01/23 release levofloxacin 750 mg tablet mg 07/17/24 prednisone 10 mg tablet mg 07/17/24 sumatriptan succinate 50 mg tablet mg PO 07/17/24 Previous Rx's ?Medication ?Instructions ?Recorded hydrocodone 5 mg-acetaminophen 325 1 tab PO Q6H PRN pain 3 days #12 07/17/24 mg tablet tabs ketorolac 10 mg tablet 10 mg PO TID PRN pain #10 tabs 07/17/24 Allergies Allergy/AdvReac Type Severity Reaction Status Date / Time No Known Drug Allergies Allergy Verified 07/17/24 16:19 Opioid HPI Opioid Management Most Recent Pain and Opioid Data: Last Pain Scale 2 06/02/23 11:32 06/02/23 Ur Phencyclidine Scrn Negative (NEGATIVE) 06/01/23 05:35 06/01/23 Review of Systems ROS Constitutional Denies: fever or chills Ears, nose, mouth, and throat Denies: throat pain or nasal congestion Respiratory Denies: shortness of breath Gastrointestinal Denies: nausea or vomiting Musculoskeletal Reports: back pain and extremity pain; Denies: neck pain Integumentary/Breast Denies: rash Neurological Denies: numbness in extremities or weakness in extremities Hematologic/Lymphatic Denies: easy bruising or easy bleeding PFSH PFSH Family History (Updated 06/01/23 @ 05:46 by Janusz Lewis) Father Family history of COPD (chronic obstructive pulmonary disease) Family history of diabetes mellitus Uncle Family history of cancer Mother Family history of cancer Social History Within the past year, how often did you have a drink containing alcohol: never Within the past year, how often did you have six or more drinks on one occasion: never Score interpretation: A score less than 3 is consistent with normal alcohol consumption. Smoking status: Never smoker Non-prescribed substance use: denies use Highest level of school completed/degree received: high school graduate Are you now , , , , never or living with a partner: In a typical week, how many times do you talk on the telephone with family, friends, or neighbors: 3 or more times per week How often do you get together with friends or relatives: 3 or more times per week Little interest or pleasure in doing things: not at all Feeling down, depressed, or hopeless: not at all Feel stressed/tense/nervous/anxious/difficulty sleeping: not at all Do you think of yourself as: straight/heterosexual Gender Identity: female Exam Narrative Exam Narrative: Gen.: Awake, alert, in no distress Head: Normocephalic, atraumatic ENT: Moist mucous membranes, no facial or dental injury. C-spine nontender Respiratory: No respiratory distress Back: No bony point tenderness of the C-spine, T-spine or L-spine with diffuse minimal tenderness of the paraspinal muscles of the back. No obvious deformity or step-off Extremities: small Ecchymosis and abrasion noted to the right anterior knee with no bony point tenderness of the patella or tibia. Dorsum of the left foot is mildly edematous with no ecchymosis or obvious deformity. 2+ DP pulses bilaterally with normal flexion and extension of the toes of the left foot. Psych: Normal mood and affect Neuro: No focal neuro deficit Skin: Warm, dry, intact Constitutional Vital Signs, click to edit/add: Last Vital Signs Temp 97.4 F L 07/17/24 16:19 Pulse 91 H 07/17/24 16:19 Resp 16 07/17/24 16:19 BP 143/68 H 07/17/24 16:19 Pulse Ox 100 07/17/24 16:19 O2 Del Method Room Air 07/17/24 16:19 Course Vital Signs Vital signs: Vital Signs Temperature 97.4 F L 07/17/24 16:19 Pulse Rate 91 H 07/17/24 16:19 Respiratory Rate 16 07/17/24 16:19 Blood Pressure 143/68 H 07/17/24 16:19 Pulse Oximetry 100 07/17/24 16:19 Oxygen Delivery Method Room Air 07/17/24 16:19 Temperature 97.4 F L 07/17/24 16:19 Pulse Rate 91 H 07/17/24 16:19 Respiratory Rate 16 07/17/24 16:19 Blood Pressure 143/68 H 07/17/24 16:19 Pulse Oximetry 100 07/17/24 16:19 Oxygen Delivery Method Room Air 07/17/24 16:19 MDM - Extremity Injury (Lower) MDM Narrative Medical decision making narrative: X-rays show questionable avulsion fracture from the talus. Patient placed in an Hunter wrap and postop shoe and remains neurovascularly intact. She has crutches at home. Rest, ice, elevate. Follow-up with occupational health and podiatry and return to the ER if symptoms change or worsen SUPERVISED APC VISIT, PHYSICIAN ATTESTATION: Based on the medical record the care appears appropriate. ? Medical Records Attestation: I reviewed the patient's medical records. Imaging Data xr foot: Attestation: I have reviewed the pertinent imaging results. Radiologist's impression: ITS Impressions Foot X-Ray 07/17/24 16:42 IMPRESSION: Suspected small avulsion fracture along the dorsal anterior aspect of the talus. Electronically authenticated by: ROSELINE JARAMILLO Date: 07/17/2024 17:04 Discharge Plan Discharge Chief Complaint: Extremity Injury, Lower Clinical Impression: Avulsion fracture of left talus Patient Disposition: Home, Self-Care Time of Disposition Decision: 17:16 Condition: Good Prescriptions / Home Meds: New hydrocodone-acetaminophen 5-325 mg tablet 1 tab PO Q6H PRN (Reason: pain) 3 Days Qty: 12 0RF Rx Instructions: DX: M79.67 ketorolac 10 mg tablet 10 mg PO TID PRN (Reason: pain) Qty: 10 0RF No Action omeprazole 20 mg capsule,delayed release(DR/EC) prednisone 10 mg tablet sumatriptan succinate 50 mg tablet PO levofloxacin 750 mg tablet Print Language: [place] Islander Instructions: Avulsion Fracture (ED) Referrals: [facility] [Outside] - 1 week Theo Phelps DPM [Physician] - 1 week
--- NOTE | 2024-07-17 16:42 | XR_ITS ---
The [address] [address] Patient Name: NATAN NOLEN MRN: [id number] date: 1990 Sex: F Assigned Patient Location: ER Current Patient Location: ED.MAIN Accession/Order Number: [id number] Exam Date: 07/17/2024 16:35 Report Date: 07/17/2024 17:04 At the request of: BASILIA CARSON Procedure: XR foot LT min 3V EXAM: XR foot LT min 3V HISTORY: fall COMPARISON: 01/25/2024 TECHNIQUE: 3 views of the left foot are performed. FINDINGS: There is a small bony density now seen projecting along the dorsal aspect of the talus anteriorly, not seen on the prior study. This may represent a small avulsion injury. There appears to be some overlying soft tissue edema. The remaining bony structures are intact. There is a tiny plantar calcaneal spur, and a tiny enthesophyte at the insertion of the Achilles tendon. XR/XR foot LT min 3V IMPRESSION: Suspected small avulsion fracture along the dorsal anterior aspect of the talus. Electronically authenticated by: ROSELINE JARAMILLO Date: 07/17/2024 17:04
--- OUTSIDE RECORDS SUMMARY | 2024-07-17 16:44 | XMS_ITS | CCD ---
Author Organization [facility] Care Team Providers Care Sample Puller Name Role Phone Mami Ahmadi Unavailable MATTHEW, [...] Drug Class(es) Dates Sig (Normalized) Sig (Original) [id number] 200 actuat albuterol 0.09 mg/actuat metered dose [...] HBsAg Screen Negative Normal Negative [facility] Comment on above: Performed By: #### H CVPCRR #### [facility] [address] [place] [address] Dr. Daryn Rosario HEPATITIS C VIRUS AB W/ REFL EX QUANTon 11-05-2022 HCV AB Non-Reactive Normal Non Reactive [facility] Comment on above: Performed By: #### H CVPCRR #### [facility] [address] [place] [address] Dr. Daryn Rosario Interpretation: Comment Normal [facility] Comment on above: Result Comment: Not infected with HCV unless early or acute infection is suspected (which may be delayed in an immunocompromised individual), or other evidence exists to indicate HCV infection. Performed By: #### H CVPCRR #### [facility] [address] [place] [address] Dr. Daryn Rosario HIV 1 AND 2 WITH REFLEXon HIV Screen 4th Generation wRfx Non-Reactive Normal Non Reactive [facility] Comment on above: Result Comment: HIV Negative HIV-1/HIV-2 antibodies and HIV-1 p24 antigen were NOT detected. There is no laboratory evidence of HIV infection. Performed By: #### H IV12 #### [facility] [address] [place] [address] Dr. Daryn Rosario RPR QUANTon 11-05-2022 Rapid Plasma Reagin, Quant Non-Reactive Normal NonRea<1:1 [facility] Comment on above: Result Comment: Plea se Note: This test does not meet current guidelines for screening and diagnosis of syphilis. This test is intended for following treatment response in patients being treated for syphilis infection. To screen for syphilis infection, a reflex cascade that includes both RPR and a treponema-specific assay should be utilized, such as Treponema pallidum (Syphilis) Screening Gem ([id number]) or Rapid Plasma Reagin (RPR) Test With Reflex to Quantitative RPR and Confirmatory Treponema pallidum Antibodies ([id number]). Performed By: #### R PRQ #### [facility] [address] [place] [address] Dr. Daryn Rosario RUBELLA AB IGGon 11-05-2022 Rubella Antibodies, IgG 12.70 index Normal Immu ne >0.99 [facility] Comment on above: Result Comment: Non- immune <0.90 Equivocal 0.90 - 0.99 Immune >0.99 Performed By: #### R UBIGG #### [facility] [address] [place] [address] Dr. Daryn Rosario BOX TEST SENT OUTon 11-05-19 23 SENT TO REF LAB 11/04/2022 Normal [facility] Comment on above: Performed By: #### H CVPCRR #### [facility] [address] [place] [address] Dr. Daryn Rosario CBC AUTO DIFFon 11-04-2022 BASO # 0.0 103/ul Normal 0.0-0.1 [facility] Comment on above: Performed By: #### H CVPCRR #### [facility] [address] [place] [address] Dr. Daryn Rosario Basophils/100 WBC (Bld) 0.4 % Normal 0.2-2.0 [facility] Comment on above: Performed By: #### H CVPCRR #### [facility] [address] [place] [address] Dr. Daryn Rosario EO # 0.1 103/ul Normal 0.0-0.7 [facility] Comment on above: Performed By: #### H CVPCRR #### [facility] [address] [place] [address] Dr. Daryn Rosario Eosinophils/100 WBC (Bld) 1.4 % Normal 0.9-7.0 [facility] Comment on above: Performed By: #### H CVPCRR #### [facility] [address] [place] [address] Dr. Daryn Rosario Erythrocyte distribution width (RBC) [Ratio] 12.4 % Normal 11.0-15.0 [facility] Comment on above: Performed By: #### H CVPCRR #### [facility] [address] [place] [address] Dr. Daryn Rosario Hematocrit (Bld) [Volume fraction] 38.5 % Normal 36.0-48.0 [facility] Comment on above: Performed By: #### H CVPCRR #### [facility] [address] [place] [address] Dr. Daryn Rosario Hemoglobin (Bld) [Mass/Vol] 13.3 g/dL Normal 12.0-16.0 [facility] Comment on above: Performed By: #### H CVPCRR #### [facility] [address] [place] [address] Dr. Daryn Rosario IG # 0.03 10e3/ul Normal 0.00-0.03 [facility] Comment on above: Performed By: #### H CVPCRR #### [facility] [address] [place] [address] Dr. Daryn Rosario IG % 0.4 % Normal 0.0-0.5 [facility] Comment on above: Performed By: #### H CVPCRR #### [facility] [address] [place] [address] Dr. Daryn Rosario LYMPH # 1.9 103/ul Normal 1.2-3.8 [facility] Comment on above: Performed By: #### H CVPCRR #### [facility] [address] [place] [address] Dr. Daryn Rosario Lymphocytes/100 WBC (Bld) 23.2 % Normal 20.5-60.0 [facility] Comment on above: Performed By: #### H CVPCRR #### [facility] [address] [place] [address] Dr. Daryn Rosario MANUAL DIFF REQ NO Normal [facility] Comment on above: Performed By: #### H CVPCRR #### [facility] [address] [place] [address] Dr. Daryn Rosario MCH (RBC) [Entitic mass] 30.5 pg Normal 26.7-34.0 [facility] Comment on above: Performed By: #### H CVPCRR #### [facility] [address] [place] [address] Dr. Daryn Rosario MCHC (RBC) [Mass/Vol] 34.5 g/dL Normal 29.9-35.2 [facility] Comment on above: Performed By: #### H CVPCRR #### [facility] [address] [place] [address] Dr. Daryn Rosario MCV (RBC) [Entitic vol] 88.3 fL Normal 81.0-99.0 [facility] Comment on above: Performed By: #### H CVPCRR #### [facility] [address] [place] [address] Dr. Daryn Rosario MONO # 0.7 103/ul Normal 0.3-0.8 [facility] Comment on above: Performed By: #### H CVPCRR #### [facility] [address] [place] [address] Dr. Daryn Rosario Monocytes/100 WBC (Bld) 8.4 % Normal 1.7-12.0 [facility] Comment on above: Performed By: #### H CVPCRR #### [facility] [address] [place] [address] Dr. Daryn Rosario NEUT # 5.4 103/ul Normal 1.4-6.5 [facility] Comment on above: Performed By: #### H CVPCRR #### [facility] [address] [place] [address] Dr. Daryn Rosario Neutrophils/100 WBC (Bld) 66.2 % Normal 43.0-75.0 [facility] Comment on above: Performed By: #### H CVPCRR #### [facility] [address] [place] [address] Dr. Daryn Rosario Platelet mean volume (Bld) [Entitic vol] 9.4 fL Critically low 9.5-13.5 [facility] Comment on above: Performed By: #### H CVPCRR #### [facility] [address] [place] [address] Dr. Daryn Rosario PLT 347 103/ul Normal 150-450 [facility] Comment on above: Performed By: #### H CVPCRR #### [facility] [address] [place] [address] Dr. Daryn Rosario RBC 4.36 106/ul Normal 4.20-5.40 [facility] Comment on above: Performed By: #### H CVPCRR #### [facility] [address] [place] [address] Dr. Daryn Rosario WBC 8.1 103/ul Normal 4.0-11.0 [facility] Comment on above: Performed By: #### H CVPCRR #### [facility] [address] [place] [address] Dr. Daryn Rosario CULTURE URINEon 11-04-2022 CULTURE URINE Culture Observations: LIGHT GROWTH OF MIXED GENITAL KARTHIKEYAN. NO POTENTIAL PATHOGENS SEEN. Normal [facility] Comment on above: Performed By: #### L BCFSH #### [facility] [address] [place] [address] Dr. Daryn Rosario GLYCOHEMOGLOBIN A1Con 2022 ADA RECOMMENDATION SEE BELOW Normal [facility] Comment on above: Result Comment: ADA RECOMMENDED LIMIT 4.0 - 6.0 ADA THERAPEUTIC TARGET < 7.0 ACTION SUGGESTED > 7.0 Performed By: #### A 1C #### [facility] [address] [place] [address] Dr. Daryn Rosario Glucose [Mass/Vol] 97 mg/dL Normal [facility] Comment on above: Performed By: #### A 1C #### [facility] [address] [place] [address] Dr. Daryn Rosario HbA1c (Bld) [Mass fraction] 5.0 % Normal 4.5-6.2 [facility] Comment on above: Performed By: #### A 1C #### [facility] [address] [place] [address] Dr. Daryn Rosario TSHon 11-04-2022 TSH 1.102 uIU/mL Normal 0.358-3.740 [facility] Comment on above: Performed By: #### T SH #### [facility] [address] [place], [place] [address] Dr. Daryn Rosario TYPE AND SCREENon 11-04-2022 TYPE AND SCREEN Negative Normal [facility] Comment on above: Performed By: #### L [facility] #### [facility] [address] [place], [place] [address] Dr. Daryn Rosario US PREG TVon 11-04-2022 [...] SUSAN YEAGER Date: 2022-11-04 10:32 Normal [facility] Covid-19 PCR (CVDTB)on 09-30 SARS-CoV-2 (COVID-19) RNA DOUG+probe Ql (Unsp spec) Not detected Normal NOT DETECTED [facility] Comment on above: Result Comment: This test is not yet approved or cleared by the [place] FDA. When there are no FDA-approved or cleared tests available, and other criteria are met, FDA can make tests available under an emergency access mechanism called an Emergency Use Authorization (EUA). The EUA for this test is supported by the [place] of Health and Human Service's (HHS's) declaration [...] SARS-CoV-2. Performed By: #### L BCFSH #### [facility] [address] [place] [address] Dr. Daryn Rosario INFLUENZA A AND B AGon 10-27 INFLUANEGH SEE BELOW Normal [facility] Comment on above: Result Comment: Nega tive for Flu A protein angiten. Infection due to Flu A cannot be ruled out. Flu A angiten in the sample may be below the detection limit of the test. Performed By: #### I NFLUAB #### [facility] [address] [place] [address] Dr. Daryn [facility]OW Normal [facility] Comment on above: Result Comment: Nega tive for Flu B protein antigen. Infection due to Flu B cannot be ruled out. Flu B antigen in the sample may be below the detection limit of the test. Performed By: #### I NFLUAB #### [facility] [address] [place] [address] Dr. Daryn Rosario INFLUENZA A AG Negative Normal NEGATIVE SEE COMMENT [facility] Comment on above: Performed By: #### I NFLUAB #### [facility] [address] [place] [address] Dr. Daryn Rosario INFLUENZA B AG Negative Normal NEGATIVE SEE COMMENT [facility] Comment on above: Performed By: #### I NFLUAB #### [facility] [address] [place] [address] Dr. Daryn Rosario SYMPTOMATIC COVID-19 ANTIGEN on 10-27-2022 EUA Statement SEE BELOW Normal [facility] Comment on above: Result Comment: [...] is revoked sooner. Performed By: #### L [facility] #### [facility] [address] [place] [address] [id number] Daryn Rosario SARS-CoV-2 (COVID-19) RNA DOUG+probe Ql (Unsp spec) Negative Normal NEGATIVE [facility] Comment on above: Performed By: #### L [facility] #### [facility] [address] [place], [place] [address] Dr. Daryn Rosario US PELVIS AND TRANSVAGon [...] NIEVES Date: 2022-09-08 14:05 Normal [facility] DHEA SERUMon 08-29-2022 Dehydroepiandrosterone (DHEA) 410 ng/dL Normal [facility] Comment on above: Result Comment: Age [...] 89 Performed By: #### H CVPCRR #### [facility] [address] [place] [address] Dr. Daryn Rosario DHEA-SULFATEon 08-26-2022 DHEA-Sulfate 226.0 ug/dL Normal 84.8-378.0 [facility] Comment on above: Performed By: #### L BCFSH #### [facility] [address] [place] [address] Dr. Daryn Rosario FSHon 08-26-2022 FSH 5.6 mIU/mL Normal [facility] Comment on above: Result Comment: Adul t Female: Follicular phase 3.5 - 12.5 Ovulation phase 4.7 - 21.5 Luteal phase 1.7 - 7.7 Postmenopausal 25.8 - 134.8 Performed By: #### L BCFSH #### [facility] [address] [place] [address] Dr. Daryn Rosario LUTEINIZING HORMONE (LH)on 0 08-26-2022 LH 9.6 mIU/mL Normal [facility] Comment on above: Result Comment: Adul t Female: Follicular phase 2.4 - 12.6 Ovulation phase 14.0 - 95.6 Luteal phase 1.0 - 11.4 Postmenopausal 7.7 - 58.5 Performed By: #### H CVPCRR #### [facility] [address] [place] [address] Dr. Daryn Rosario CBC AUTO DIFFon 08-25-2022 BASO # 0.1 103/ul Normal 0.0-0.1 [facility] Comment on above: Performed By: #### C BC #### [facility] [address] [place] [address] Dr. Daryn Rosario Basophils/100 WBC (Bld) 1.2 % Normal 0.2-2.0 [facility] Comment on above: Performed By: #### C BC #### [facility] [address] [place] [address] Dr. Daryn Rosario EO # 0.1 103/ul Normal 0.0-0.7 [facility] Comment on above: Performed By: #### C BC #### [facility] [address] [place] [address] Dr. Daryn Rosario Eosinophils/100 WBC (Bld) 2.0 % Normal 0.9-7.0 [facility] Comment on above: Performed By: #### C BC #### [facility] [address] [place] [address] Dr. Daryn Rosario Erythrocyte distribution width (RBC) [Ratio] 12.2 % Normal 11.0-15.0 [facility] Comment on above: Performed By: #### C BC #### [facility] [address] [place] [address] Dr. Daryn Rosario Hematocrit (Bld) [Volume fraction] 45.0 % Normal 36.0-48.0 [facility] Comment on above: Performed By: #### C BC #### [facility] [address] [place] [address] Dr. Daryn Rosario Hemoglobin (Bld) [Mass/Vol] 14.0 g/dL Normal 12.0-16.0 [facility] Comment on above: Performed By: #### C BC #### [facility] [address] [place] [address] Dr. Daryn Rosario IG # 0.02 10e3/ul Normal 0.00-0.03 [facility] Comment on above: Performed By: #### C BC #### [facility] [address] [place] [address] Dr. Daryn Rosario IG % 0.3 % Normal 0.0-0.5 [facility] Comment on above: Performed By: #### C BC #### [facility] [address] [place] [address] Dr. Daryn Rosario LYMPH # 2.3 103/ul Normal 1.2-3.8 [facility] Comment on above: Performed By: #### C BC #### [facility] [address] [place] [address] Dr. Daryn Rosario Lymphocytes/100 WBC (Bld) 34.6 % Normal 20.5-60.0 [facility] Comment on above: Performed By: #### C BC #### [facility] [address] [place] [address] Dr. Daryn Rosario MANUAL DIFF REQ NO Normal [facility] Comment on above: Performed By: #### C BC #### [facility] [address] [place] [address] Dr. Daryn Rosario MCH (RBC) [Entitic mass] 29.7 pg Normal 26.7-34.0 [facility] Comment on above: Performed By: #### C BC #### [facility] [address] [place] [address] Dr. Daryn Rosario MCHC (RBC) [Mass/Vol] 31.1 g/dL Normal 29.9-35.2 [facility] Comment on above: Performed By: #### C BC #### [facility] [address] [place] [address] Dr. Daryn Rosario MCV (RBC) [Entitic vol] 95.3 fL Normal 81.0-99.0 [facility] Comment on above: Performed By: #### C BC #### [facility] [address] [place] [address] Dr. Daryn Rosario MONO # 0.7 103/ul Normal 0.3-0.8 [facility] Comment on above: Performed By: #### C BC #### [facility] [address] [place] [address] Dr. Daryn Rosario Monocytes/100 WBC (Bld) 10.8 % Normal 1.7-12.0 [facility] Comment on above: Performed By: #### C BC #### [facility] [address] [place] [address] Dr. Daryn Rosario NEUT # 3.4 103/ul Normal 1.4-6.5 [facility] Comment on above: Performed By: #### C BC #### [facility] [address] [place] [address] Dr. Daryn Rosario Neutrophils/100 WBC (Bld) 51.1 % Normal 43.0-75.0 [facility] Comment on above: Performed By: #### C BC #### [facility] [address] [place] [address] Dr. Daryn Rosario Platelet mean volume (Bld) [Entitic vol] 9.6 fL Normal 9.5-13.5 [facility] Comment on above: Performed By: #### C BC #### [facility] [address] [place] [address] Dr. Daryn Rosario PLT 362 103/ul Normal 150-450 [facility] Comment on above: Performed By: #### C BC #### [facility] [address] [place] [address] Dr. Daryn Rosario RBC 4.72 106/ul Normal 4.20-5.40 [facility] Comment on above: Performed By: #### C BC #### [facility] [address] [place] [address] Dr. Daryn Rosario WBC 6.7 103/ul Normal 4.0-11.0 [facility] Comment on above: Performed By: #### C BC #### [facility] [address] [place] [address] Dr. Daryn Rosario FREE T4on 08-25-2022 Free T4 [Mass/Vol] 0.97 ng/dL Normal 0.76-1.46 [facility] Comment on above: Performed By: #### H CVPCRR #### [facility] [address] [place] [address] Dr. Daryn Rosario GLYCOHEMOGLOBIN A1Con 2022 ADA RECOMMENDATION SEE BELOW Normal [facility] Comment on above: Result Comment: ADA RECOMMENDED LIMIT 4.0 - 6.0 ADA THERAPEUTIC TARGET < 7.0 ACTION SUGGESTED > 7.0 Performed By: #### H CVPCRR #### [facility] [address] [place] [address] Dr. Daryn Rosario Glucose [Mass/Vol] 103 mg/dL Normal [facility] Comment on above: Performed By: #### H CVPCRR #### [facility] [address] [place] [address] Dr. Daryn Rosario HbA1c (Bld) [Mass fraction] 5.2 % Normal 4.5-6.2 [facility] Comment on above: Performed By: #### H CVPCRR #### [facility] [address] [place] [address] [address] Daryn Rosario TSHon 08-25-2022 TSH 1.472 uIU/mL Normal 0.358-3.740 [facility] Comment on above: Performed By: #### T SH #### [facility] [address] [place] [address] [address] Daryn Rosario PAP ACOG PANEL 2: 30 to 65on 08-19-2022 . . Normal [facility] Comment on above: Result Comment: Perf ormed at: WB Performed By: #### H CVPCRR #### [facility] [address] [address] [address] Daryn Rosario Age Gdln ACOG Testing [facility] Comment on above: Performed By: #### H CVPCRR #### [facility] [address] [place] [address] Dr. Daryn Rosario DIAGNOSIS: Comment Normal [facility] Comment on above: Result Comment: NEGA TIVE FOR INTRAEPITHELIAL LESION OR MALIGNANCY. Performed at: WB Performed By: #### H CVPCRR #### [facility] [address] [address] [address] Daryn Rosario HPV Aptima Negative Normal Negative [facility] Comment on above: Result Comment: This nucleic acid amplification test detects fourteen high-risk HPV types (16,18,31,33,35,39,45,51,52,56,58,59,66,68) without differentiation. Performed at: =G Performed By: #### H CVPCRR #### [facility] [address] [address] [address] Daryn Rosario HPV Genotype Reflex Comment Normal [facility] Comment on above: Result Comment: Crit eria not met, HPV Genotype not performed. Performed at: WB Performed By: #### H CVPCRR #### [facility] [address] [address] [address] Daryn Rosario Methodology: Comment Normal [facility] Comment on above: Result Comment: This liquid based ThinPrep(R) pap test was screened with the use of an image guided system. Performed at: WB Performed By: #### H CVPCRR #### [facility] [address] [address] [address] Daryn Rosario Note: Comment Normal [facility] Comment on above: Result Comment: The [...] WB Performed By: #### H CVPCRR #### [facility] [address] [address] [address] Daryn Rosario Performed by: Comment Normal [facility] Comment on above: Result Comment: Redd Powell, [employer] Farm[employer] Performed at: WB Performed By: #### H CVPCRR #### [facility] [address] [place] [address] Dr. Daryn Rosario Specimen adequacy: Comment Normal [facility] Comment on above: Result Comment: Sati sfactory for evaluation. Endocervical and/or squamous metaplastic cells (endocervical component) are present. Performed at: WB Performed By: #### H CVPCRR #### [facility] [address] [address] [address] Daryn Rosario COVID Quick Testingon 2020 Result Negative [email or web address] Other PT - Assessmentson PT - Assessments .[id number] 172#1.00CD:127 Normal [facility] PT - Consentson 11-12-2020 PT - Consents [id number] 797#1.00CD:127 Normal [facility] PT - Home Exercise Programon 11-12-2020 PT - Home Exercise Program [id number] 629#1.00CD:127 Normal [facility] PT - [place] 11-10-2020 PT - Orders [id number] 962#1.00CD:127 Normal [facility] Coding Summary.on 11-09-2020 Coding Summary. CODING DATE: 11/09/[address] [facility] STATUS: PAYOR: Gil ADMIT DX: REASON FOR [...] Rojas CphT Date Saved: 11/09/2020 07:36 pm [facility] Coding Summary. CODING DATE: 11/09/[address] [facility] STATUS: Home (Routine DC) PAYOR: Gil ADMIT [...] CphT Date Saved: 11/09/2020 08:07 am Normal [facility] Consenton 11-09-2020 Consent [id number] 236#1.00CD:127 Normal [facility] PT - [place] 11-09-2020 PT - Orders [id number] 527#1.00CD:127 Normal [facility] PAP [id number] 11-02-2020 C. trachomatis rRNA DOUG+probe Ql (Cvx) Negative Invalid Interpretation Code Negative [facility] Comment on above: Performed By: #### 1 [id number] #### [facility] [address] [place] [address] Cytology report Cyto stain Doc (Cvx/Vag) Note Invalid Interpretation Code [facility] Comment on above: Result Comment: TEST S RESULT FLAG UNITS REF RANGE LAB Clinician Provided Cytology Information Source.............Endocervix No. of containers..01 ThinPrep Vial DIAGNOSIS: 01 NEGATIVE FOR INTRAEPITHELIAL LESION OR MALIGNANCY. CELLULAR CHANGES ASSOCIATED WITH INFLAMMATION ARE PRESENT. 01 Satisfactory for evaluation. Endocervical and/or squamous metaplastic cells (endocervical component) are present. 01 Jose Gordon, General I Farmworker (ASCP) 01 Note 01 The Pap smear [...] High,A-Abnormal,AA-Critical Abnormal Performed at: 01 [facility] [address] [id number] Shelbie Chavira MD, Performed By: #### 1 [id number] #### [facility] [address] [place] [address] [place] [address] N. gonorrhoeae rRNA DOUG+probe Ql (Cvx) Negative Invalid Interpretation Code Negative [facility] Comment on above: Performed By: #### 1 [id number] #### [facility] [address] [place] [address] T. vaginalis rRNA DOUG+probe Ql (Unsp spec) Negative Invalid Interpretation Code Negative [facility] Comment on above: Result Comment: Perf ormed at: [facility] [place] [address] [place], [place] [id number] MD Cait Morfin Performed at: =G [facility] [place] [address] [place], [place] [id number] MD Cait Morfin Performed By: #### 1 [id number] #### [facility] [address] [place] [address] Ambulatory Clinical Summaryo n 10-27-2020 Ambulatory Clinical Summary {[id number]}CD:[id number] 8 Normal [facility] Gynecology Office/Clinic Not ortega 10-27-2020 Gynecology [...] Her Imitrex resolves them for the day 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 Pap obtained Neurologic: Grossly normal Skin: [place], moist, no tenting Lymph Nodes: No cervical [...] Ordered: Est Preventative 18 to 39 years [id number]/NG/Trich rflx HPV 2. BMI 40.0-44.9, adult (Z68.41: Body mass index [BMI]40.0-44.9, adult) Discussed health risks of obesity Encouraged healthy, balanced diet low in sugar, fat, carbs Encouraged exercise regimen Ordered: Body Mass Index (BMI) documented 3008F Cervical cancer screening results documented and reviewed 3015F Est Preventative 18 to 39 years [address] Most recent diastolic blood pressure <80 mm Hg 3078F Systolic BP <130 mm Hg (Most Recent) 3074F Follow-up With When Contact Information [facility] In 1 year [address] [place] [address]- Business (1) Additional Instructions: Problem List/Past Medical History Ongoing No qualifying data Historical Procedure/Surgical History Kidney operation (1999), Bladder operation (1997), Eye operation (1997). Medications Tri-Sprintec 35 mcg Tab, 1 tab(s), Oral, Daily, 4 refills Allergies No Known Nik (more content not included)... Normal [facility] Comment on above: Result Comment: Elec tronically Signed By: Purvi PANDYA CNP\Date and Time Signed: 10/27/20 10:27 EDT PAP [id number] 10-27-2020 Gynecological Body Site ENDOCERVIX Normal [facility] Comment on above: Performed By: #### 1 [id number] #### [facility] [address] [place] [address] Patient Educationon 10-28-19 Patient Education Exercise to [...] Document Reviewed: 08/19/2011 ExitCare? Patient Information ?2013 [employer] Normal [facility] Vital Signs Date Time Vital Sign Value Performing Clinician Facility 07-15-2021 11:00-0500 Body height 154.94 cm Mami Ahmadi Other [email or web address] Other 07-15-2021 11:00-0500 Body mass index (BMI) [Ratio] 49.69 kg/m2 Mami Ahmadi Other [email or web address] Other 07-15-2021 11:00-0500 Body temperature 96.2 [degF] Mami Ahmadi Other [email or web address] Other 07-15-2021 11:00-0500 Body weight 119.3 kg Mami Ahmadi Other [email or web address] Other 07-15-2021 11:00-0500 Respiratory rate 18 /min Mami Ahmadi Other [email or web address] Other 07-15-2021 11:00-0500 SaO2% (BldA) [Mass fraction] 98 % Mami Ahmadi Other [email or web address] Other Encounters Encounter Date Encounter Type Care [...] 07-15-2021 End: 07-15-2021 ambulatory Mami Zamoraault Other [email or web address] Other Start: 07-15-2021 Office outpatient visit 15 minutes Mami Ahmadi [facility] Payers Date Payer Category Payer Unknown [id number] 2.16.84 [id number] 1988 Unknown [id number] 2.16.84 0.1.552855.3.579.2.593 1988 Unknown [id number] 2.16.84 0.1.074392.3.579.2.593 1988 Unknown [id number] 2.16.84 0.1.274101.3.579.2.593 1988 Unknown [id number] 2.16.84 0.1.418520.3.579.2.593 1988 Unknown [id number] 2.16.84 0.1.551598.3.579.2.593 1988 Unknown [id number] 2.16.84 0.1.727612.3.579.2.593 1988 Unknown [id number] 2.16.84 0.1.278507.3.579.2.593 1988 Unknown [id number] 2.16.84 0.1.390678.3.579.2.1259 1988 Unknown [id number] 2.16.84 0.1.139511.3.579.2.1259 1988 Unknown [id number] 2.16.840 .1.280703.3.579.2.1259 1961 [facility] RL7 [id number] 2.16.840.1.948975.19 1961 Unknown Social History Date Type Detail Facility Unknown if ever smoked [email or web address] Other Sex Assigned At Sex Assigned At Bir th [email or web address] Other Clinical Note 05-24-2022 Note Date & [...] by: BRUNILDA NIEVES Date: 2022-05-24 16:57 [facility] Clinical Note 05-24-2022 Note Date & [...] by: BRUNILDA NIEVES Date: 2022-05-24 16:57 [facility] Clinical Note 05-16-2022 Note Date & [...] by: BRUNILDA NIEVES Date: 2022-05-16 12:40 [facility] Evaluation note 07-15-2021 Note Date & [...] care instructions given in writting by [facility] document. [email or web address] Other History general Narrative - Reported Note Date & Type Note Facility History general Narrative - Reported Type Medical History migraine headache Surgical History eyes Surgical History bladder surgery Hospitalization History see above [email or web address] Other Summary Purpose Family History No Family History Records FoundNo Family History Records FoundNo Family History Records Found Advance Directives No Advanced Directives Records FoundNo Advanced Directives Records FoundNo Advanced Directives Records Found Additional Source Comments INFORMATION SOURCE (unrecogn ized section and content) DATE CREATED AUTHOR 02/04/2021 [employer] [facility] DATE CREATED AUTHOR AUTHOR'S ORGANIZ ATION 11/07/2022 [facility] DATE CREATED AUTHOR AUTHOR'S ORGANIZ ATION 03/29/2024 [facility] REASON FOR VISIT (unrecogniz ed section [...] BE BASED ON THE PRIMARY CLINICAL RECORDS. [facility], [facility]. provides no warranty or guarantee of the accuracy or completeness of information in this document.
[2024-07-17 17:31] VITALS: BP 126/88; PULSE 88; O2SAT 98
== END 2024-07-17 17:32 | disposition home or self-care (01) ==
PROVIDERS: Emergency Provider Emergency Medicine; PCP Family Medicine
DX: S92.152A Displaced avulsion fracture (chip fracture) of left talus, initial encounter for closed fracture (principal); S80.211A Abrasion, right knee, initial encounter; W10.8XXA Fall (on) (from) other stairs and steps, initial encounter
CPT/HCPCS: 73630; 99283

== ENCOUNTER 2024-09-02 21:44 | Outpatient (REF) | payer BC, SELFPAY ==
--- OUTSIDE RECORDS SUMMARY | 2024-09-02 21:47 | XMS_ITS | CCD ---
Author Organization [facility] Care Team Providers Care Teller Coordinator Name Role Phone Mami Ahmadi Unavailable DEE, ESME Admitting Unavailable DEE, ESME Attending Unavailable REQUEST, NONE LISTED Primary Care Unavaila ble DEE, ESME Consulting Unavailable DEE, ESME Admitting Unavailable DEE, ESME Attending Unavailable DEE, ESME Consulting Unavailable DEE, ESME Admitting Unavailable DEE, ESME Attending Unavailable DEE, ESME Consulting Unavailable DEE, ESME Admitting Unavailable DEE, ESME Attending Unavailable DEE, ESME Consulting Unavailable MILAD, JERROD Admitting Unavailable MILAD, JERROD Attending Unavailable ZISHERYL, DR DIONICIO Fraser Consulting Unavailable MILAD, JERROD Consulting Unavailable DEE, ESME Admitting Unavailable DEE, ESME Attending Unavailable REQUEST, DR VERGARA LISTED Primary Care Unavaila david EFFINGHAM, DR SUSAN Weems Consulting Unavailable DEE, ESME Consulting Unavailable DEE, ESME Admitting Unavailable DEE, ESME Attending Unavailable DEE, ESME Consulting Unavailable ZIEBER, DR DIONICIO Fraser Consulting Unavailable JESSY ., DR HOLDEN Admitting Unavailable HAY ., DR HOLDEN Attending Unavailable ARONEBER, DR DIONICIO Fraser Consulting Unavailable JESSY ., DR HOLDEN Consulting Unavailable EMMA HUTTON Attending Unavailable EVERARDO ADEN Attending Unavailable NEIL HAMILTON Referring Unavailable EMMA HUTTON Attending Unavailable Unavailable Primary Care Provider UnavailTelma Cote Attending Unavailable Medications Current Medications Medication Drug Class(es) Dates Sig (Normalized) Sig (Original) [id number] 200 actuat albuterol 0.09 mg/actuat metered dose inhaler (1 source) beta2-Adrenergic Agonist Start: 1 take 2 puff(s) by inhalation every four hours as needed Albuterol Sulfate HFA 108 (90 Base) MCG/ACT 2 puffs as needed Inhalation every 4 hrs Jun, Active osmotic 24 hr metFORMIN hydrochloride 500 mg extended release oral tablet (2 sources) Biguanide take 1 tablet by mouth at mealtime, then take 1 tablet by mouth every twenty-four hours metFORMIN, OSM, (Fortamet) 500 MG 24 hr tablet Take 500 mg by mouth in the evening. Take with meals Do not crush, chew, or split. Active methylPREDNISolone 4 mg oral tablet (1 source) Corticosteroid Start: 1 methylPREDNISolone 4 MG as directed Orally Once a day for 6 days Jun, Active norethindrone 0.35 mg oral tablet (2 sources) Start: 4 End: 4 take 1 tablet by mouth in the morning, then take 1 tablet by mouth once daily norethindrone (Micronor) 0.35 MG tablet Indications: Encounter for initial prescription of contraceptive pills Take 1 tablet (0.35 mg) by mouth in the morning. Take 1 tablet by mouth daily. 28 tablet 11 08/29/2023 Active SUMAtriptan 50 mg oral tablet (3 sources) Serotonin-1b and Serotonin-1d Receptor Agonist SUMAtriptan (Imitrex ) 50 MG tablet Take 50 mg by mouth 1 (one) time if needed for migraine May repeat dose once in 2 hours if no relief. Do not exceed 2 doses in 24 hours. Active SUMAtriptan Acti ve Problems Active Problems Problem Classification Problem Date [...] [POLYCYSTIC OVARIAN SYNDROME] Onset: 09-08-2022 Chronic Other endocrine disorders (2 sources) Polycystic ovary syndrome; Translations: [Polycystic ovarian syndrome] Onset: 01-11-2023 01-11-2023 Chronic Other and delivery including normal (2 sources) Encounter for supervision of other normal , first trimester; Translations: [Encounter for supervision of normal , unspecified, first trimester] Onset: 11-07-2022 Episodic Other screening for suspected conditions (not mental disorders or infectious disease) (4 sources) Encounter for screening for malignant neoplasm of cervix; Translations: [ENC SCREENING MALIG NEOPLASM CERV] Onset: 08-15-2022 Episodic Unclassified (1 source) CONTACT W/AND (SUSP) [...] UNS STAIRS STEPS INIT] Onset: 05-17-2022 Episodic Headache; including migraine (2 sources) Frequent headache; Translations: [Frequent headaches] Onset: 01-11-2023 01-11-2023 Episodic Nausea and vomiting (2 sources) Nausea; Translations: [Nausea] Onset: 01-11-2023 01-11-2023 Episodic Other connective tissue disease (3 sources) Pain in left foot; Translations: [PAIN IN LEFT FOOT] Onset: 05-16-2022 Episodic Other nervous system disorders (1 source) Numbness and tingling sensation of skin; Translations: [Anesthesia of skin] 03-27-2024 Episodic Other nervous system disorders (1 source) Paresthesia of lower extremity; Translations: [Paresthesia of skin] 03-27-2024 Episodic Other upper respiratory infections (6 sources) Acute upper respiratory infection, unspecified; Translations: [Upper respiratory infection] Onset: 10-27-2022 Episodic Sprains and strains (4 sources) Unspecified sprain of left foot, initial encounter; Translations: [UNSPECIFIED SPRAIN LT FOOT INITIAL] Onset: 05-24-2022 Episodic Results Test Name Value Interpretation Reference Range Facility Workers' Comp Officeon 08-01 Workers' Comp Office Workers' Comp Offic e Patient: NATAN NOLEN Age: 34 years Sex: Female : 1990 Associated Diagnoses: None Author: DENVER NUÑEZTelma Chief Complaint 08/01/2024 10:06 EST Here for ER follow up following work injury on 07/15/24. She notes she fell down the stairs. She was noted to have an avulsion fracture L ft and given JESUS wrap, and boot to use as needed. She notes she has not been using these as of late. 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 States she landed on her back. Denied any head injury. States most of pain was of her knees, shins and left foot/ankle. She went to ER to be evaluated ([facility]). Xray showed a possible avulsion injury to dorsal aspect of the talus anteriorly. Her ankle was wrapped with jesus bandage and she was placed in a walking boot. 08/01/24 Presents today for ER f/u. States she quit wearing the boot around 07/22/24. States rarely uses jesus bandage. States she never used the crutches. States she basically does not have any pain in her left foot. c/o some mild tightness to anterior dorsal foot with plantar flexion and rotation of ankle. Denies any edema, mild bruising fading, bruising to her legs and knee was worse and this has faded as well. States her generalized body soreness from the fall has resolved. She has continued to work full duty Review of Systems Constitutional: Negative. Musculoskeletal: Tightness in left foot , possible avusion fracture. Integumentary: Negative. Neurologic: Negative. Psychiatric: Negative. Health Status Allergies: Allergic Reactions (Selected) No Known Allergies, Allergies (1) Active Severity Reaction No Known Allergies None Documented Current medications: Home Medications (2) Active sumatriptan Tri-Sprintec 35 mcg Tab 1 tab(s), Oral, Daily Histories Social History Social & Psychosocial Habits Alcohol 08/14/2018 Risk Assessment: Denies Alcohol Use Substance Abuse 08/14/2018 Risk Assessment: Denies Substance Abuse Tobacco 08/14/2018 Risk Assessment: Denies Tobacco Use 10/27/2020 Tobacco Use: Never (less than 100 in l Smokeless tobacco use: Never . Physical Examination Vital Signs (last 24 hrs) Last Charted SBP 132 mmHg (AUG 01 10:06) DBP 78 mmHg (AUG 01:) General: Alert and oriented, No acute distress. Musculoskeletal Left ankle/foot without deformity. No redness or edema is present. Mild tenderness to anterior aspect of dorsal foot and slightly laterally with palpation. FROM with mild tightness with plantar flexion and rotation of left ankle. Integumentary: Warm, Dry, [place]. Neurologic: Alert, Oriented, Normal sensory, Normal motor function, neurovascularly intact. . Psychiatric: Cooperative, Appropriate mood & affect. Impression and Plan Diagnosis Nondisplaced avulsion fracture (chip fracture) of left talus, initial encounter for closed fracture ([id number] S92.155A, Working, Medical). Contusion of unspecified lower leg, initial encounter ([id number] S80.10XA, Working, Medical). Course: Improving. Orders Total time: 30 minutes This includes time spent with the patient during the visit as well as time spent before and after the visit reviewing the chart, documenting the encounter, making phone calls, reviewing studies. . Professional Services 1. Reviewed record 2. Status: Improving 3. Reviewed medication profile 4. Ibuprofen 600 mg q8hr prn 5. tylenol 1000 mg q8hr prn 6. Counseled patient on medication administration and possible side effects 7. Work: - No restrictions 8 F/U: prn Normal [facility] EMG 2 Extremitieson 03-27-20 EMG/NCS BLE Normal study [facility] NVC 9-10 Nerveson 03-27-2024 EMG/NCS BLE Normal study [facility] HEP B SURFACE ANTIGEN SCREEN on 11-05-2022 HBsAg Screen Negative Normal Negative [facility] Comment on above: Performed By: #### H CVPCRR #### [facility] [address] [place] [address] Dr. Daryn Rosario HEPATITIS C VIRUS AB W/ REFL EX QUANTon 11-05-2022 HCV AB Non-Reactive Normal Non Reactive [facility] Comment on above: Performed By: #### H CVPCRR #### [facility] [address] [address] [address] Daryn Rosario Interpretation: Comment Normal [facility] Comment on above: Result Comment: Not infected with HCV unless early or acute infection is suspected (which may be delayed in an immunocompromised individual), or other evidence exists to indicate HCV infection. Performed By: #### H CVPCRR #### [facility] [address] [address] [address] Daryn Rosaroi HIV 1 AND 2 WITH REFLEXon HIV Screen 4th Generation wRfx Non-Reactive Normal Non Reactive [facility] Comment on above: Result Comment: HIV Negative HIV-1/HIV-2 antibodies and HIV-1 p24 antigen were NOT detected. There is no laboratory evidence of HIV infection. Performed By: #### H IV12 #### [facility] [address] [place] [address] Dr. Daryn Rosario RPR QUANTon 11-05-2022 Rapid Plasma Reagin, Quant Non-Reactive Normal NonRea<1:1 [facility] Comment on above: Result Comment: Plea se Note: This test does not meet current guidelines for screening and diagnosis of syphilis. This test is intended for following treatment response in patients being treated for syphilis infection. To screen for syphilis infection, a reflex cascade that includes both RPR and a treponema-specific assay should be utilized, such as Treponema pallidum (Syphilis) Screening [place] (155828) or Rapid Plasma Reagin (RPR) Test With Reflex to Quantitative RPR and Confirmatory Treponema pallidum Antibodies (982246). Performed By: #### R PRQ #### [facility] [address] [place] [address] Dr. Daryn Rosario RUBELLA AB IGGon 11-05-2022 Rubella Antibodies, IgG 12.70 index Normal Immu ne >0.99 [facility] Comment on above: Result Comment: Non- immune <0.90 Equivocal 0.90 - 0.99 Immune >0.99 Performed By: #### R UBIGG #### [facility] [address] [place] [address] Dr. Daryn Rosario BOX TEST SENT OUTon 04-07-20 23 SENT TO REF LAB 11/04/2022 Normal [facility] Comment on above: Performed By: #### H CVPCRR #### [facility] [address] [place] [address] Dr. Daryn Rosario CBC AUTO DIFFon 11-04-2022 BASO # 0.0 103/ul Normal 0.0-0.1 [facility] Comment on above: Performed By: #### H CVPCRR #### [facility] [address] [place] [address] Dr. Daryn Rosario Basophils/100 WBC (Bld) 0.4 % Normal 0.2-2.0 [facility] Comment on above: Performed By: #### H CVPCRR #### [facility] [address] [place] [address] Dr. Daryn Rosario EO # 0.1 103/ul Normal 0.0-0.7 [facility] Comment on above: Performed By: #### H CVPCRR #### [facility] [address] [place] [address] Dr. Daryn Rosario Eosinophils/100 WBC (Bld) 1.4 % Normal 0.9-7.0 [facility] Comment on above: Performed By: #### H CVPCRR #### [facility] [address] [place] [address] Dr. Daryn Rosario Erythrocyte distribution width (RBC) [Ratio] 12.4 % Normal 11.0-15.0 [facility] Comment on above: Performed By: #### H CVPCRR #### [facility] [address] [place] [address] Dr. Daryn Rosario Hematocrit (Bld) [Volume fraction] 38.5 % Normal 36.0-48.0 [facility] Comment on above: Performed By: #### H CVPCRR #### [facility] [address] [place] [address] Dr. Daryn Rosario Hemoglobin (Bld) [Mass/Vol] 13.3 g/dL Normal 12.0-16.0 [facility] Comment on above: Performed By: #### H CVPCRR #### [facility] [address] [address] [address] Daryn Rosario IG # 0.03 10e3/ul Normal 0.00-0.03 [facility] Comment on above: Performed By: #### H CVPCRR #### [facility] [address] [place] [address] Dr. Daryn Rosario IG % 0.4 % Normal 0.0-0.5 [facility] Comment on above: Performed By: #### H CVPCRR #### [facility] [address] [place] [address] Dr. Daryn Rosario LYMPH # 1.9 103/ul Normal 1.2-3.8 [facility] Comment on above: Performed By: #### H CVPCRR #### [facility] [address] [place] [address] Dr. Daryn Rosario Lymphocytes/100 WBC (Bld) 23.2 % Normal 20.5-60.0 [facility] Comment on above: Performed By: #### H CVPCRR #### [facility] [address] [place] [address] Dr. Daryn Rosario MANUAL DIFF REQ NO Normal [facility] Comment on above: Performed By: #### H CVPCRR #### [facility] [address] [place] [address] Dr. Daryn Rosario MCH (RBC) [Entitic mass] 30.5 pg Normal 26.7-34.0 [facility] Comment on above: Performed By: #### H CVPCRR #### [facility] [address] [address] [address] Daryn Rosario MCHC (RBC) [Mass/Vol] 34.5 g/dL Normal 29.9-35.2 [facility] Comment on above: Performed By: #### H CVPCRR #### [facility] [address] [place] [address] Dr. Daryn Rosario MCV (RBC) [Entitic vol] 88.3 fL Normal 81.0-99.0 [facility] Comment on above: Performed By: #### H CVPCRR #### [facility] [address] [address] [address] Daryn Rosario MONO # 0.7 103/ul Normal 0.3-0.8 [facility] Comment on above: Performed By: #### H CVPCRR #### [facility] [address] [address] [address] Daryn Rosario Monocytes/100 WBC (Bld) 8.4 % Normal 1.7-12.0 [facility] Comment on above: Performed By: #### H CVPCRR #### [facility] [address] [place] [address] Dr. Daryn Rosario NEUT # 5.4 103/ul Normal 1.4-6.5 [facility] Comment on above: Performed By: #### H CVPCRR #### [facility] [address] [place] [address] Dr. Daryn Rosario Neutrophils/100 WBC (Bld) 66.2 % Normal 43.0-75.0 [facility] Comment on above: Performed By: #### H CVPCRR #### [facility] [address] [place] [address] Dr. Daryn Rosario Platelet mean volume (Bld) [Entitic vol] 9.4 fL Critically low 9.5-13.5 [facility] Comment on above: Performed By: #### H CVPCRR #### [facility] [address] [place] [address] Dr. Daryn Rosario PLT 347 103/ul Normal 150-450 [facility] Comment on above: Performed By: #### H CVPCRR #### [facility] [address] [place] [address] Dr. Daryn Rosario RBC 4.36 106/ul Normal 4.20-5.40 [facility] Comment on above: Performed By: #### H CVPCRR #### [facility] [address] [place] [address] Dr. Daryn Rosario WBC 8.1 103/ul Normal 4.0-11.0 [facility] Comment on above: Performed By: #### H CVPCRR #### [facility] [address] [place] [address] Dr. Daryn Rosario CULTURE URINEon 11-04-2022 CULTURE URINE Culture Observations: LIGHT GROWTH OF MIXED GENITAL KARTHIKEYAN. NO POTENTIAL PATHOGENS SEEN. Normal [facility] Comment on above: Performed By: #### L BCFSH #### [facility] [address] [place] [address] Dr. Daryn Rosario GLYCOHEMOGLOBIN A1Con 2022 ADA RECOMMENDATION SEE BELOW Normal [facility] Comment on above: Result Comment: ADA RECOMMENDED LIMIT 4.0 - 6.0 ADA THERAPEUTIC TARGET < 7.0 ACTION SUGGESTED > 7.0 Performed By: #### A 1C #### [facility] [address] [place] [address] Dr. Daryn Rosario Glucose [Mass/Vol] 97 mg/dL Normal [facility] Comment on above: Performed By: #### A 1C #### [facility] [address] [place] [address] Dr. Daryn Rosario HbA1c (Bld) [Mass fraction] 5.0 % Normal 4.5-6.2 [facility] Comment on above: Performed By: #### A 1C #### [facility] [address] [place] [address] Dr. Daryn Rosario TSHon 11-04-2022 TSH 1.102 uIU/mL Normal 0.358-3.740 [facility] Comment on above: Performed By: #### T SH #### [facility] [address] [place] [address] Dr. Daryn Rosario TYPE AND SCREENon 11-04-2022 TYPE AND SCREEN Negative Normal [facility] Comment on above: Performed By: #### L BCFSH #### [facility] [address] [place] [address] Dr. Daryn Rosario US PREG TVon 11-04-2022 [...] SUSAN YEAGER Date: 2022-11-04 10:32 Normal [facility]30 SARS-CoV-2 (COVID-19) RNA DOUG+probe Ql (Unsp spec) Not detected Normal NOT DETECTED [facility] Comment on above: Result Comment: This test is not yet approved or cleared by the [place] FDA. When there are no FDA-approved or cleared tests available, and other criteria are met, FDA can make tests available under an emergency access mechanism called an Emergency Use Authorization (EUA). The EUA for this test is supported by the [place] of Health and Human Service's (HHS's) declaration [...] SARS-CoV-2. Performed By: #### L BCFSH #### [facility] [address] [place] [address] Dr. Daryn Rosario INFLUENZA A AND B AGon 10-27 [facility] SEE BELOW Normal [facility] Comment on above: Result Comment: Nega tive for Flu A protein angiten. Infection due to Flu A cannot be ruled out. Flu A angiten in the sample may be below the detection limit of the test. Performed By: #### I NFLUAB #### [facility] [address] [place] [address] Dr. Daryn Rosario INFLUBNEGH SEE BELOW Normal [facility] Comment on above: Result Comment: Nega tive for Flu B protein antigen. Infection due to Flu B cannot be ruled out. Flu B antigen in the sample may be below the detection limit of the test. Performed By: #### I NFLUAB #### [facility] [address] [place] [address] Dr. Daryn Rosario INFLUENZA A AG Negative Normal NEGATIVE SEE COMMENT [facility] Comment on above: Performed By: #### I NFLUAB #### [facility] [address] [address] [address] Daryn Rosario INFLUENZA B AG Negative Normal NEGATIVE SEE COMMENT [facility] Comment on above: Performed By: #### I NFLUAB #### [facility] [address] [place] [address] Dr. Daryn Rosario SYMPTOMATIC COVID-19 ANTIGEN on 10-27-2022 EUA Statement SEE BELOW Normal [facility] Comment on above: Result Comment: This test [...] is revoked sooner. Performed By: #### L BCFSH #### [facility] [address] [place] [address] Dr. Daryn Rosario SARS-CoV-2 (COVID-19) RNA DOUG+probe Ql (Unsp spec) Negative Normal NEGATIVE [facility] Comment on above: Performed By: #### L BCFSH #### [facility] [address] [address] [address] Daryn Rosario US PELVIS AND TRANSVAGon [...] over 2.0 cm is. Electronically authenticated by: DIONICIO NIEVES Date: 2022-09-08 14:[address] [facility] DHEA SERUMon 08-29-2022 Dehydroepiandrosterone (DHEA) 410 ng/dL Normal 31-701 [facility] Comment on above: Result Comment: Age [...] 89 Performed By: #### H CVPCRR #### [facility] [address] [address] [address] Daryn Rosario DHEA-SULFATEon 08-26-2022 DHEA-Sulfate 226.0 ug/dL Normal 84.8-378.0 [facility] Comment on above: Performed By: #### L BCFS #### [facility] [address] [address] [address] Daryn Rosario FSHon 08-26-2022 FSH 5.6 mIU/mL Normal [facility] Comment on above: Result Comment: Adul t Female: Follicular phase 3.5 - 12.5 Ovulation phase 4.7 - 21.5 Luteal phase 1.7 - 7.7 Postmenopausal 25.8 - 134.8 Performed By: #### L BCFSH #### [facility] [address] [place] [address] Dr. Daryn Rosario LUTEINIZING HORMONE (LH)on 0 08-26-2022 LH 9.6 mIU/mL Normal [facility] Comment on above: Result Comment: Adul t Female: Follicular phase 2.4 - 12.6 Ovulation phase 14.0 - 95.6 Luteal phase 1.0 - 11.4 Postmenopausal 7.7 - 58.5 Performed By: #### H CVPCRR #### [facility] [address] [place] [address] Dr. Daryn Rosario CBC AUTO DIFFon 08-25-2022 BASO # 0.1 103/ul Normal 0.0-0.1 [facility] Comment on above: Performed By: #### C BC #### [facility] [address] [place] [address] Dr. Daryn Rosario Basophils/100 WBC (Bld) 1.2 % Normal 0.2-2.0 [facility] Comment on above: Performed By: #### C BC #### [facility] [address] [place] [address] Dr. Daryn Rosario EO # 0.1 103/ul Normal 0.0-0.7 [facility] Comment on above: Performed By: #### C BC #### [facility] [address] [place] [address] Dr. Daryn Rosario Eosinophils/100 WBC (Bld) 2.0 % Normal 0.9-7.0 [facility] Comment on above: Performed By: #### C BC #### [facility] [address] [place] [address] Dr. Dayrn Rosario Erythrocyte distribution width (RBC) [Ratio] 12.2 % Normal 11.0-15.0 [facility] Comment on above: Performed By: #### C BC #### [facility] [address] [place] [address] Dr. Daryn Rosario Hematocrit (Bld) [Volume fraction] 45.0 % Normal 36.0-48.0 [facility] Comment on above: Performed By: #### C BC #### [facility] [address] [place] [address] Dr. Daryn Rosario Hemoglobin (Bld) [Mass/Vol] 14.0 g/dL Normal 12.0-16.0 [facility] Comment on above: Performed By: #### C BC #### [facility] [address] [place] [address] Dr. Daryn Rosario IG # 0.02 10e3/ul Normal 0.00-0.03 [facility] Comment on above: Performed By: #### C BC #### [facility] [address] [place] [address] Dr. Daryn Rosario IG % 0.3 % Normal 0.0-0.5 [facility] Comment on above: Performed By: #### C BC #### [facility] [address] [place] [address] Dr. Daryn Rosario LYMPH # 2.3 103/ul Normal 1.2-3.8 [facility] Comment on above: Performed By: #### C BC #### [facility] [address] [place] [address] Dr. Daryn Rosario Lymphocytes/100 WBC (Bld) 34.6 % Normal 20.5-60.0 [facility] Comment on above: Performed By: #### C BC #### [facility] [address] [place] [address] Dr. Daryn Rosario MANUAL DIFF REQ NO Normal [facility] Comment on above: Performed By: #### C BC #### [facility] [address] [place] [address] Dr. Daryn Rosario MCH (RBC) [Entitic mass] 29.7 pg Normal 26.7-34.0 [facility] Comment on above: Performed By: #### C BC #### [facility] [address] [place] [address] Dr. Daryn Rosario MCHC (RBC) [Mass/Vol] 31.1 g/dL Normal 29.9-35.2 [facility] Comment on above: Performed By: #### C BC #### [facility] [address] [address] [address] Daryn Rosario MCV (RBC) [Entitic vol] 95.3 fL Normal 81.0-99.0 [facility] Comment on above: Performed By: #### C BC #### [facility] [address] [address] [address] Daryn Rosario MONO # 0.7 103/ul Normal 0.3-0.8 [facility] Comment on above: Performed By: #### C BC #### [facility] [address] [place] [address] Dr. Daryn Rosario Monocytes/100 WBC (Bld) 10.8 % Normal 1.7-12.0 [facility] Comment on above: Performed By: #### C BC #### [facility] [address] [place] [address] Dr. Daryn Rosario NEUT # 3.4 103/ul Normal 1.4-6.5 [facility] Comment on above: Performed By: #### C BC #### [facility] [address] [place] [address] Dr. Daryn Rosario Neutrophils/100 WBC (Bld) 51.1 % Normal 43.0-75.0 [facility] Comment on above: Performed By: #### C BC #### [facility] [address] [place] [address] Dr. Daryn Rosario Platelet mean volume (Bld) [Entitic vol] 9.6 fL Normal 9.5-13.5 [facility] Comment on above: Performed By: #### C BC #### [facility] [address] [place] [address] Dr. Daryn Rosario PLT 362 103/ul Normal 150-450 [facility] Comment on above: Performed By: #### C BC #### [facility] [address] [place] [address] Dr. Daryn Rosario RBC 4.72 106/ul Normal 4.20-5.40 [facility] Comment on above: Performed By: #### C BC #### [facility] [address] [address] [address] Daryn Rosario WBC 6.7 103/ul Normal 4.0-11.0 [facility] Comment on above: Performed By: #### C BC #### [facility] [address] [place] [address] Dr. Daryn Rosario FREE T4on 08-25-2022 Free T4 [Mass/Vol] 0.97 ng/dL Normal 0.76-1.46 [facility] Comment on above: Performed By: #### H CVPCRR #### [facility] [address] [place] [address] Dr. Daryn Rosario GLYCOHEMOGLOBIN A1Con 2022 ADA RECOMMENDATION SEE BELOW Normal [facility] Comment on above: Result Comment: ADA RECOMMENDED LIMIT 4.0 - 6.0 ADA THERAPEUTIC TARGET < 7.0 ACTION SUGGESTED > 7.0 Performed By: #### H CVPCRR #### [facility] [address] [place] [address] Dr. Daryn Rosario Glucose [Mass/Vol] 103 mg/dL Normal [facility] Comment on above: Performed By: #### H CVPCRR #### [facility] [address] [place] [address] Dr. Daryn Rosario HbA1c (Bld) [Mass fraction] 5.2 % Normal 4.5-6.2 [facility] Comment on above: Performed By: #### H CVPCRR #### [facility] [address] [place] [address] Dr. Daryn Rosario TSHon 08-25-2022 TSH 1.472 uIU/mL Normal 0.358-3.740 [facility] Comment on above: Performed By: #### T SH #### [facility] [address] [place] [address] Dr. Daryn Rosario PAP ACOG PANEL 2: 30 to 65on 08-19-[address] [facility] Comment on above: Result Comment: Perf ormed at: WB Performed By: #### H CVPCRR #### [facility] [address] [address] [address] Daryn Rosario Age Gdln ACOG Testing 30-[address] [facility] Comment on above: Performed By: #### H CVPCRR #### [facility] [address] [place] [address] Dr. Daryn Rosario DIAGNOSIS: Comment Normal [facility] Comment on above: Result Comment: NEGA TIVE FOR INTRAEPITHELIAL LESION OR MALIGNANCY. Performed at: WB Performed By: #### H CVPCRR #### [facility] [address] [place] [address] Dr. Daryn Rosario HPV Aptima Negative Normal Negative [facility] Comment on above: Result Comment: This nucleic acid amplification test detects fourteen high-risk HPV types (16,18,31,33,35,39,45,51,52,56,58,59,66,68) without differentiation. Performed at: =G Performed By: #### H CVPCRR #### [facility] [address] [place] [address] Dr. Daryn Rosario HPV Genotype Reflex Comment Normal [facility] Comment on above: Result Comment: Crit eria not met, HPV Genotype not performed. Performed at: WB Performed By: #### H CVPCRR #### [facility] [address] [place] [address] Dr. Daryn Rosario Methodology: Comment Normal [facility] Comment on above: Result Comment: This liquid based ThinPrep(R) pap test was screened with the use of an image guided system. Performed at: WB Performed By: #### H CVPCRR #### [facility] [address] [place] [address] Dr. Daryn Rosario Note: Comment Normal [facility] Comment on above: Result Comment: The [...] WB Performed By: #### H CVPCRR #### [facility] [address] [place] [address] Dr. Daryn Rosario Performed by: Comment Normal [facility] Comment on above: Result Comment: Redd Powell, Accounting Systems Analyst Performed at: WB Performed By: #### H CVPCRR #### [facility] [address] [address] [address] Daryn Rosario Specimen adequacy: Comment Normal [facility] Comment on above: Result Comment: Sati sfactory for evaluation. Endocervical and/or squamous metaplastic cells (endocervical component) are present. Performed at: WB Performed By: #### H CVPCRR #### [facility] [address] [place], [place] [address] Dr. Daryn Rosario COVID Quick Testingon 2020 Result Negative [facility] Other Vital Signs Date Time Vital Sign Value Performing Clinician Facility 07-15-2021 11:00-0500 Body height 154.94 cm Mami Ahmadi Other [facility] Other 07-15-2021 11:00-0500 Body mass index (BMI) [Ratio] 49.69 kg/m2 Mami Ahmadi Other [facility] Other 07-15-2021 11:00-0500 Body temperature 96.2 [degF] Mami Ahmadi Other [facility] Other 07-15-2021 11:00-0500 Body weight 119.3 kg Mami Ahmadi Other [facility] Other 07-15-2021 11:00-0500 Respiratory rate 18 /min Mami Ahmadi Other [facility] Other 07-15-2021 11:00-0500 SaO2% (BldA) [Mass fraction] 98 % Mami Ahmadi Other [facility] Other Encounters Encounter Date Encounter Type Care Provider Facility Start: 09-02-2024 End: 09-02-2024 Bamboo flowsheet Esme Dee DO Work Phone: [facility] Start: 09-02-2024 End: 09-02-2024 Bamboo flowsheet Esme Dee DO Work Phone: [facility] Start: 08-01-2024 ambulatory Telma GOFF Facility:[facility] Start: 03-27-2024 End: 03-27-2024 Patient encounter procedure Everardo Aden DO Work Phone: [facility] Comment on above: Numbness and tinglin g (Primary Dx); Leg paresthesia Start: 03-27-2024 End: 03-27-2024 ambulatory EVERARDO ADEN Not Available Start: 08-29-2023 End: 08-29-2023 ambulatory [facility] Not Available Start: 07-19-2023 End: 07-19-2023 ambulatory [facility] Not Available Start: 11-04-2022 End: 11-05-2022 ambulatory ESME DEE Facility:[facility] Start: 11-04-2022 End: 11-05-2022 ambulatory ESME DEE Facility:[facility] Start: 10-27-2022 End: 10-27-2022 ambulatory [facility] DEE Facility:[facility] Start: 09-08-2022 End: 09-09-2022 ambulatory ESME DEE Facility:[facility] Start: 08-25-2022 End: 08-26-2022 ambulatory [facility] DEE Facility:[facility] Start: 08-15-2022 End: 08-15-2022 ambulatory ESME DEE Facility:[facility] Start: 05-24-2022 End: 05-25-2022 ambulatory JERROD STINSON Facility:[facility] Start: 05-16-2022 End: 05-16-[address] NAVIN JIMÉNEZ . Facility:[facility] Start: 07-15-2021 End: 07-15-2021 ambulatory Mami Ahmadi Other [facility] Other Start: 07-15-2021 Office outpatient vi sit 15 minutes Mami Ahmadi [facility] Procedures Date Procedure Procedure Detail Performing Clinician Start: 03-27-2024 End: 03-27-2024 Needle emg ea extremty w/paraspinl area complete Everardo Aden DO Work Phone: Plan of Treatment Date Care Activity Detail Author Start: 09-02-2024 End: 09-02-2024 Patient encounter procedure [facility] Comment on above: Arrived Payers Date Payer Category Payer Worker's Compensation [id number] 2018 [employer] [id number] 1988 Unknown [id number] .593 1988 Unknown [id number] 2..[id number] .593 1988 Unknown [id number] [id number] .593 1988 Unknown [id number] [id number] .593 1988 Unknown [id number] 2.16.840.1.733749.3.579.2 .593 1988 Unknown [id number] [id number] .593 1988 Unknown [id number] 2.16.840.1.314914.3.579.2 .593 1988 Unknown [id number] 2.16.840.1.322846.3.579.2 .593 1988 Unknown [id number] 2.16.840.1.974546.3.579.2 .1259 1988 Unknown [id number] 2.16.840.1.707122.3.579.2 .1259 1988 Unknown [id number] 2.16.840.1.343186.3.579.2 .1259 1988 Unknown [id number] [id number] .727 1961 [facility] [id number] [id number] 1961 Unknown Social History Date Type Detail Facility Unknown if ever smoked [facility] Other Start: 01-16-2023 End: 08-29-2023 Sex Assigned At [facility] Other Start: 01-16-2023 Tobacco smoking stat [facility] Never smoked tobacco [facility] Start: 01-16-2023 Tobacco use and exposure Smokeless tobacco non-user [facility] Start: 08-29-2023 Alcoholic beverage intake Lifetime non-drinker (finding) [facility] Start: 01-16-2023 End: 08-29-2023 History of Social function [facility] Start: 1990 Sex assigned at Not on file [facility] History of Present illness Narrative 03-27-2024 Panfilo Ponce, ARRT - 03/27/2024 11:30 AM EDT Note Date & Type Note Facility 03-27-2024 History of Presen t illness Narrative Images from the original note were not included. Reason for Appointment: [facility] Patient: Natan Nolen : 1990 [facility] Computer: [employer] Referring Physician: Neil Hamilton PA-C EMG: BLE longwall shearer operator: Panfilo Ponce RT(R) Office Location: [place] Reason for EMG: c/o numbness/tingling in bilateral feet L>R, low back pain that radiates down bilateral legs. No hx of DM. Not on blood thinners. Comments: Procedure was explained to the patient who expressed understanding. Patient appeared to have tolerated the test well despite some discomfort due to the nature of the test. documented in this encounter [facility] Clinical Note 05-24-2022 Note Date & Type [...] left ankle and foot. Electronically authenticated by: DIONICIO NIEVES Date: 2022-05-24 16:57 [facility] Clinical Note 05-24-2022 Note Date & [...] left ankle and foot. Electronically authenticated by: DIONICIO NIEVES Date: 2022-05-24 16:57 [facility] Clinical Note 05-16-2022 Note Date & Type Note Facility 05-16-2022 Note PROCEDURE: XR FOOT L T MIN 3 VIEWS HISTORY: Injury of left foot ; fifth metatarsal pain COMPARISON: None. FINDINGS: BONES:No fracture, acute abnormality, or significant arthropathy. SOFT TISSUES:No visible soft tissue swelling. EFFUSION:None visible. OTHER: Negative. IMPRESSION: 1. No acute bone abnormality or significant degenerative changes. Electronically authenticated by: DIONICIO NIEVES Date: 2022-05-16 12:40 [facility] Evaluation note 07-15-2021 Note Date & [...] [facility] document. [employer] Other Evaluation note Note Date & Type Note Facility Evaluation note Diagnosis Numbness and tingling- Primary Disturbance of skin sensation Leg paresthesia Disturbance of skin sensation documented in this encounter [facility] History general Narrative - Reported Note Date & Type Note Facility History general Narrative - Reported Type Medical History migraine headache Surgical History eyes Surgical History bladder surgery Hospitalization History see above [facility] Other Summary Purpose Family History No Family History Records FoundNo Family History Records FoundNo Family History Records Found Advance Directives No Advanced Directives Records FoundNo Advanced Directives Records FoundNo Advanced Directives Records Found Additional Source Comments REASON FOR VISIT (unrecogniz ed section and content) Specialty Diagnoses / Procedures Referred By Tavia t Referred To Contact Neurology Diagnoses Other specified mononeuropathies of left lower limb Procedures OK NEEDLE EMG EA EXTREMTY W/PARASPINL AREA COMPLETE OK NERVE CONDUCTION STUDIES 9-10 STUDIES Neli Hamilton, JUD [address] [place] [address] Dionicio Verduzco MD [address] [place] [address] Referral ID Status Reason Start Date Expiration Date V isits Requested Visits Authorized [id number] Closed Perform Procedure 02/28/2024 08/26/2024 1 1 INFORMATION SOURCE (unrecogn ized section and content) DATE CREATED AUTHOR 11/07/2022 [facility] DATE CREATED AUTHOR AUTHOR'S ORGANIZ ATION 03/29/2024 [facility] EPIC DATE CREATED AUTHOR AUTHOR'S ORGANIZ ATION 08/02/2024 [facility] FOR RECORDS PERTAINING TO PATIENTS WHO ARE [...] BE BASED ON THE PRIMARY CLINICAL RECORDS. [employer] [facility]. provides no warranty or guarantee of the accuracy or completeness of information in this document.
== END 2024-09-02 21:45 | disposition home or self-care (01) ==
LOC: LAB 21:44
PROVIDERS: PCP Family Medicine; Visit Provider Obstetrics & Gynecology
DX: Z01.419 Encounter for gynecological examination (general) (routine) without abnormal findings (principal)
CPT/HCPCS: 87624; 88175

== ENCOUNTER 2024-11-22 08:48 | Outpatient (OUT) | payer BC, SELFPAY ==
[2024-11-22 09:38] LABS: Basophils Absolute Auto 0.1 10^3/uL (0.0-0.1); Eosinophils Absolute Auto 0.2 10^3/uL (0.0-0.7); Eosinophils Percent Auto 2.4 % (0.9-7.0); Hematocrit 42.2 % (36.0-48.0); Hemoglobin 14.2 g/dL (12.0-16.0); Immature Granulocytes Abs Auto 0.01 10^3/uL (0.00-0.03); Immature Granulocytes Pct Auto 0.2 % (0.0-0.5); Lymphocytes Absolute Auto 2.4 10^3/uL (1.2-3.8); Lymphocytes Percent Auto 38.5 % (20.5-60.0); Mean Corpuscular HGB Conc 33.6 g/dL (29.9-35.2); Mean Corpuscular Hemoglobin 30.3 pg (26.7-34.0); Monocytes Absolute Auto 0.6 10^3/uL (0.3-0.8); Monocytes Percent Auto 9.5 % (1.7-12.0); Neutrophils Percent Auto 48.4 % (43.0-75.0); Platelet Count 333 10^3/uL (150-450); Red Blood Count 4.69 10^6/uL (4.20-5.40); Red Cell Distribution Width 11.9 % (11.0-15.0); White Blood Count 6.2 10^3/uL (4.0-11.0)
[2024-11-22 10:19] LABS: Estimated Average Glucose 100 mg/dL; Glycohemoglobin A1C 5.1 % (4.5-6.2)
[2024-11-22 10:38] LABS: Alanine Aminotransferase 34 U/L (14-59); Albumin Globulin Ratio 1.4; Albumin Level 3.9 g/dL (3.4-5.0); Alkaline Phosphatase 60 U/L (46-116); Anion Gap 11.7; Aspartate Amino Transferase 28 U/L (15-37); BUN Creatinine Ratio 15.6; Bilirubin Total 0.9 mg/dL (0.2-1.0); Calcium 8.5 mg/dL (8.5-10.1); Carbon Dioxide 27.3 mmol/L (21.0-32.0); Chloride 106 mmol/L (98-107); Chol HDL Ratio 2.9; Cholesterol 145 mg/dL (<=200); Estimated GFR (African America >60 (>=60 mL/min/1.73m^2); Estimated GFR (Non-African Ame >60 (>=60 mL/min/1.73m^2); Free T3 3.05 pg/mL (2.18-3.98); Globulin 2.8 g/dL; Glucose 92 mg/dL (74-106); HDL Cholesterol 50 mg/dL (40-60); LDL Cholesterol Calculated 80.8 mg/dL; Sodium 141 mmol/L (136-145); Thyroid Stimulating Hormone 1.304 uIU/mL (0.358-3.740); Total Protein 6.7 g/dL (6.4-8.2); Triglycerides 71 mg/dL (<=150); VLDL CHOLESTEROL 14.2 mg/dL
[2024-11-23 10:09] LABS: Insulin 17.1 uIU/mL (2.6-24.9)
== END 2024-11-22 08:49 | disposition home or self-care (01) ==
LOC: LAB 08:48
PROVIDERS: PCP Family Medicine; Visit Provider Family Medicine
DX: Z00.00 Encounter for general adult medical examination without abnormal findings (principal)
CPT/HCPCS: 36415; 80053; 80061; 83036; 83525; 84436; 84443; 84481; 85025